=== PATIENT | female | born 1965 | race Caucasian/White ===

== ENCOUNTER 2020-12-02 06:08 | Emergency (ER) | payer MEDICAID, SELFPAY ==
[2020-12-02 06:16] VITALS: BP 144/84; PULSE 89; RESP 18; TEMP 36.7; O2SAT 97; BMI 22.6
--- NOTE | 2020-12-02 06:35 | US_ITS ---
WS: [id number] INDICATION: Right medial thigh abscess TECHNIQUE: Ultrasound soft tissue FINDINGS: Ultrasound soft tissue area of concern. Subcutaneous edema with heterogeneous soft tissue e emily. No well-defined drainable abscess or fluid collection. Focal area of induration corresponding t o spider bite measures 2.4 x 1.1 x 0.8 cm. US/US soft tissue/extremity [id number] IMPRESSION: No drainable abscess or fluid collection.
[2020-12-02 06:38] VITALS: BP 123/78; PULSE 89; RESP 17; O2SAT 94
--- NOTE | 2020-12-02 06:41 | ED_ITS ---
HPI - Skin/Abscess/Foreign Bdy General: Chief complaint: Skin/Abscess/Foreign Body Stated complaint: spider bite, sob, nausea, muscle aches Time Seen by Provider: 12/02/20 06:09 History of Present Illness: HPI narrative: 55-year-old female presents emergency room with complaint of a swollen abscess on the right medial proximal thigh. It started 4 to 5 days ago and progressively worsened. As she is not tried to manipulate it or drainage at all. It is reddened and inflamed and swollen. She is generally not been feeling well. MD complaint: abscess/boil Onset (ago): day(s) Tetanus up to date: unsure Location: RLE Severity: moderate Quality: burning and aching Pain Consistency: constant Relieving factors: none Exacerbating factors: none Associated symptoms: Reports arthralgias, chills, fever(s), itching, myalgias and nausea; Deny cough, rigidity, short of breath or vomiting Treatments prior to arrival: none Review of Systems Const: Reports: fever(s) and chills ENMT: Denies: throat pain, ear or mastoid pain, nasal discharge or nasal congestion Card: Denies: chest pain, edema, dyspnea on exertion or orthopnea Resp: Denies: dyspnea, productive cough or non-productive cough GI: Reports: nausea; Denies: vomiting : Denies: flank pain, difficulty voiding, dysuria, urinary frequency or urinary urgency Skin/Breast: Denies: rash or pruritus [facility] ED PFSH: Medical History No pertinent past medical history Surgical History H/O tubal ligation History of appendectomy Social History Smoking and tobacco status: current every day smoker cigarettes Packs smoked per day: 1 Alcohol intake: current Alcohol intake frequency: few times a week Physical Exam Const: COMMON NORMALS: no acute distress GENERAL APPEARANCE: cooperative and comfortable ORIENTATION/CONSCIOUSNESS: Yes awake, Yes oriented to person, Yes oriented to place and Yes oriented to time HENMT: COMMON NORMALS: normocephalic, atraumatic and hearing grossly normal bilaterally HEAD & SCALP: normocephalic and atraumatic Neck/C-Spine: COMMON NORMALS: no JVD Resp: COMMON NORMALS: normal respiratory effort, No retractions, No use of accessory muscles and clear to auscultation bilaterally AUSCULTATION: clear to auscultation bilaterally Cardio: COMMON NORMALS: no JVD, regular rate, regular rhythm and No murmurs present (Cardio) RATE: regular rate RHYTHM: regular rhythm GI: COMMON NORMALS: Soft to palpation and No hepatosplenomegaly present AUSCULTATION: Yes normoactive bowel sounds PALPATION: Yes Soft to palpation, No Tenderness to palpation present (GI), No Guarding due to palpation present (GI) and Yes No hepatosplenomegaly present Extremity: NARRATIVE EXTREMITY EXAM: Indurated swollen area right medial thigh. Indurated and extremely tender to the touch was a focal darkened area with a small ulcerated area with an eschar base. Is only 2 to 3 mm induration. There is no purulent drainage. Neuro: SENSORIUM/ORIENTATION: Yes oriented to person, Yes oriented to place and Yes oriented to time Skin: COMMON NORMALS: no rashes or lesions noted GENERAL SKIN EXAM: no rashes or lesions noted Course Vital Signs: Vital signs: Vital Signs Temperature 98.1 F 12/02/20 06:16 Pulse Rate 87 12/02/20 06:51 Respiratory Rate 22 H 12/02/20 06:53 Blood Pressure 123/78 12/02/20 06:51 Pulse Oximetry 98 12/02/20 06:53 MDM - Skin/Abscess/Foreign Bdy MDM Narrative: Medical decision making narrative: No identifiable abscess on ultrasound it looks like she may be forming 1 and some scattered pockets of what looks like debris. Organ to go ahead and start her on antibiotics and have her follow-up with general surgery tomorrow I suspect that she may develop an abs cess that requires drainage at some point. Discussed this with her at this point if we attempt to incise and drain may not effectively do so and might require more than 1 procedure. It would be better to observe and if it does form a significant abscess then incised and drained. Start antibiotics gave pain medications. Lab Data: Labs: Lab Results 12/02/20 12/02/20 Range/Units 06:48 06:48 WBC 12.5 H (4.0-10.0) 10^3/ uL RBC 4.50 (4.1-5.3) 10^6/u L Hgb 15.1 (11.5-15.3) g/dL Hct 42.0 (37.0-47.0) % MCV 93.3 (81-99) fL MCH 33.6 (28.0-34.0) pg MCHC 36.0 (30.0-36.0) g/dL RDW 12.7 (12.1-15.1) % Plt Count 209 (130-400) 10^3/c mm MPV 11.0 H (7.4-10.4) fL Neut % (Auto) 84.3 % Lymph % (Auto) 8.7 % [place] % (Auto) 5.9 % Eos % (Auto) 0.1 % Baso % (Auto) 0.6 % Neut # (Auto) 10.51 H (1.8-7.7) 10^3/u L Lymph # (Auto) 1.1 (0.8-4.8) 10^3/u L [place] # (Auto) 0.7 (0.2-0.9) 10^3/u L Eos # (Auto) 0.0 (0.0-0.8) 10^3/u L Baso # (Auto) 0.1 (0.0-0.1) 10^3/u L Nucleated RBC % (a uto) 0 % Nucleated RBCs # 0.0 /100WBC Sodium (136-145) mmol/L Discharge Plan Discharge Patient Disposition: Home Clinical Impression: Abscess of skin or subcutaneous tissue Condition: Stable Prescriptions: New hydrocodone-acetaminophen 5-325 mg tablet 1 tab PO Q6H PRN (Reason: pain) Qty: 15 RF: 0 Bactrim DS 800-160 mg tablet 1 tab PO BID 7 Days Qty: 14 RF: 0 Discharge Orders: Discharge ED (Routine); Ordered 12/02/20 Ordered By: Ahsan Santillan Referrals: Yady Farmer DO [Primary Care Provider] - Discharge Diet: Usual diet Discharge Activity: Resume usual activity Patient Instructions: Opioid Safety Activity Restrictions/Additional Instructions: Case management will call to make an appointment with you with the surgeon. Coding Level of Care Code ED Anodizer for Janeeg Fwd Exam Detailed
[2020-12-02 06:51] VITALS: BP 123/78; PULSE 87; RESP 23; O2SAT 98
[2020-12-02 06:53] VITALS: RESP 22; O2SAT 98
[2020-12-02] MEDS: morphine 4 mg/mL SDV 1 mL IVP (06:53)
[2020-12-02] MEDS: ondansetron 2 mg/ML SDV 2 mL 4 MG IVP (06:54)
[2020-12-02] MEDS: tetanus-dipt-pertussis 0.5 mL SDV IM (06:54)
[2020-12-02 07:01] LABS: Basophils # 0.1 10^3/uL (0.0-0.1); Basophils % 0.6 %; Eosinophils % 0.1 %; Hemoglobin 15.1 g/dL (11.5-15.3); Lymphocytes # 1.1 10^3/uL (0.8-4.8); Lymphocytes % 8.7 %; Mean Corpuscular Hemoglobin 33.6 pg (28.0-34.0); Mean Corpuscular Volume 93.3 fL (81-99); Monocytes # 0.7 10^3/uL (0.2-0.9); Monocytes % 5.9 %; Neutrophils # 10.51 10^3/uL (1.8-7.7); Neutrophils % 84.3 %; Nucleated Red Blood Cells % 0 %; Platelet Count 209 10^3/cmm (130-400); Red Cell Distribution Width 12.7 % (12.1-15.1); White Blood Count 12.5 10^3/uL (4.0-10.0)
[2020-12-02 07:48] VITALS: BP 122/77; PULSE 89; RESP 18; O2SAT 98
[2020-12-02 07:48] LABS: Blood Urea Nitrogen 5 mg/dL (6-20); Calcium 9.2 mg/dL (8.5-10.5); Carbon Dioxide 21 mmol/L (22-29); Chloride 88 mmol/L (98-107); Creatinine Clr Calc Pharmacy 156.5819; Glucose 401 mg/dL (65-115); Osmolality Calculated 274 mOsm/kg (285-295)
--- NOTE | 2020-12-02 10:23 | DCPLANNER ---
bakery and deli sales manager was asked to schedule a follow up appointment for patient with general surgery. bakery and deli sales manager email patients information to both Lacey and Antonia. Patients information will be printed and reviewed. Clinic will call patient with appointment information.
--- NOTE | 2020-12-03 07:25 | DCPLANNER ---
Patient has a follow up appointment scheduled for Thursday, December 03, 2020 at 11:[address] Marvin at [facility] General Surgery. Clinic will call patient with appointment information.
--- NOTE | 2020-12-16 16:05 | DCPLANNER ---
Patient had a follow up appointment scheduled for 12.03.[address] Marvin, with general surgery - patient did attend appointment.
== END 2020-12-02 07:51 | disposition home or self-care (01) ==
PROVIDERS: Emergency Provider Family Medicine; PCP Family Medicine
DX: L02.415 Cutaneous abscess of right lower limb (principal); F17.210 Nicotine dependence, cigarettes, uncomplicated; Z23 Encounter for immunization
CPT/HCPCS: 36415; 76882; 80048; 85025; 87040; 90471; 90715; 96374; 96375; 99283; J2270; J2405

== ENCOUNTER 2020-12-03 15:17 | Inpatient (IN) | payer MEDICAID, SELFPAY ==
--- NOTE | 2020-12-03 15:43 | CTR_ITS ---
PROCEDURE INFORMATION: Exam: CT Right Lower Extremity Without Contrast; Thigh Exam date and time: 12/03/2020 4:09 PM Age: 55 years old Clinical indication: Right thigh pain and swelling. TECHNIQUE: Imaging protocol: CT of the Right lower extremity without contrast was performed. Exam focused on the thigh. Radiation optimization: All CT scans at this facility use at least one of these dose optimization techniques: automated exposure control; mA and/or kV adjustment per patient size (includes targeted exams where dose is matched to clinical indication); or iterative reconstruction. COMPARISON: US soft tissue/extremity [id number] 12/02/2020 7:24 AM RADIATION DOSE METRICS: Total DLP (mGy-cm): 1123.13 FINDINGS: There are foci of approximately 50% narrowing involving the common femoral and proximal femoral arteries. There are foci of near occlusion involving the mid and distal femoral artery. There is a phlegmon or collection within the medial subcutaneous tissues of the right thigh that measures 2.5 x 5.1 x 4.9 cm. There is possible involvement of the underlying adductor daryn muscle. There is extensive subcutaneous edema involving the right thigh suspicious for cellulitis. There is muscular and fascial edema involving the adductor musculature likely reflecting myositis. No soft tissue gas is seen to suggest necrotizing fasciitis. A right inguinal lymph node measures 1.0 x 1.5 cm. The uterus appears enlarged and bulky; this is incompletely visualized. Recommend nonemergent pelvic ultrasound to better characterize. There are exostoses extending from the anterior and posterior aspects of the intertrochanteric right femur. No fracture, dislocation or subluxation. CT/CT lower leg RT w con [id number] IMPRESSION: 1. There is a phlegmon or abscess within the medial subcutaneous tissues of the right thigh. There is possible involvement of the underlying adductor daryn muscle. It is unclear whether this is a drainable collection. Consider targeted ultrasound to assess for drainable collection. 2. There is muscular and fascial edema involving the adductor musculature likely reflecting myositis. No soft tissue gas is seen to suggest necrotizing fasciitis. 3. There is extensive subcutaneous edema involving the right thigh suspicious for cellulitis. 4. Right inguinal lymphadenopathy. 5. The uterus appears enlarged and bulky; this is incompletely visualized. Recommend nonemergent pelvic ultrasound to better characterize. 6. Exostoses extending from the anterior and posterior aspects of the intertrochanteric right femur. Radiation Dose CTDIVOL = (mGy): DLP = 1123.13 (mGy-cm)
[2020-12-03 16:00] VITALS: BP 120/63; PULSE 81; RESP 17; TEMP 37.3; O2SAT 95
[2020-12-03 16:16] VITALS: RESP 18
[2020-12-03] MEDS: famotidine 20 mg/2 mL INJ IVP (16:16)
[2020-12-03] MEDS: morphine 4 mg/mL SDV 1 mL 2 MG IVP (16:16)
[2020-12-03] MEDS: sodium chlor 0.9% + KCl 20 mEq 20 MEQ/1,000 ML BAG 100 MEQ IV (16:18)
[2020-12-03] MEDS: iohexol 300 mg/mL 100 mL Btl IV (16:45)
[2020-12-03] MEDS: vancomycin 1,000 MG in sodium chloride 0.9% 250 ML 250 MG IV (17:16)
[2020-12-03] MEDS: enoxaparin 40 mg/0.4 mL Syringe SUBCUT (17:59)
[2020-12-03] MEDS: sodium chloride 0.9% 1,000 ML 125 ML IV (18:00)
[2020-12-03 18:40] LABS: Basophils # 0.1 10^3/uL (0.0-0.1); Basophils % 0.4 %; Eosinophils % 0.2 %; Hematocrit 36.1 % (37.0-47.0); Hemoglobin 12.4 g/dL (11.5-15.3); Lymphocytes # 1.3 10^3/uL (0.8-4.8); Lymphocytes % 10.3 %; Mean Corpuscular HGB Conc 34.3 g/dL (30.0-36.0); Mean Corpuscular Volume 93.3 fL (81-99); Monocytes # 0.8 10^3/uL (0.2-0.9); Neutrophils # 10.56 10^3/uL (1.8-7.7); Neutrophils % 82.4 %; Nucleated Red Blood Cells % 0 %; Platelet Count 214 10^3/cmm (130-400); Red Blood Count 3.87 10^6/uL (4.1-5.3); Red Cell Distribution Width 12.5 % (12.1-15.1); White Blood Count 12.8 10^3/uL (4.0-10.0)
[2020-12-03 19:03] LABS: Lactate (Lactic Acid level) 1.5 mmol/L (0.5-2.2)
[2020-12-03 19:08] LABS: Alanine Aminotransferase 7 U/L (0-33); Albumin Level 2.9 g/dL (3.5-5.2); Alkaline Phosphatase 114 IU/L (35-105); Aspartate Amino Transferase 5 U/L (0-32); Blood Urea Nitrogen 6 mg/dL (6-20); Calcium 8.9 mg/dL (8.5-10.5); Carbon Dioxide 23 mmol/L (22-29); Chloride 89 mmol/L (98-107); Globulin 3.9 g/dL (1.3-4.6); Glomerular Filtration Rate 129.1 mL/min (90-130); Osmolality Calculated 278 mOsm/kg (285-295); Sodium 124 mmol/L (136-145); Total Bilirubin 0.5 mg/dL (0.15-1.2); Total Protein 6.8 g/dL (6.6-8.7)
[2020-12-03 19:18] LABS: Anion Gap 15.9 (5-19); Glucose 502 mg/dL (65-115)
[2020-12-03 19:19] LABS: Potassium 3.9 mmol/L (3.5-5.1)
[2020-12-03 20:00] VITALS: BP 115/67; PULSE 90; RESP 17; TEMP 37.6; O2SAT 92
[2020-12-03 20:47] LABS: Glucose Point of Care 404 mg/dL (70-110)
[2020-12-03] MEDS: HYDROcodone-acetaminophen 5-325 mg Tablet 1 TAB PO (20:55)
--- NOTE | 2020-12-03 21:26 | PM.CONSULT ---
Providers/Reason For Consult Consulting Physican/Specialty*: General surgery Reason for Consult*: Elevated blood sugar Attending Physician: Luis Marvin MD Primary Care Provider: Yady Farmer DO History of Present Illness History of Present Illness Mercy Howard is a 55 year old female with no significant past medical history, current smoker, who presents [facility] due to a right inner thigh cellulitis. Hospitalist team was consulted as patient's blood sugar was found to be in the 500s, no known history of diabetes. Patient does tell me that she has been urinating and more thirsty recently. She does not know that she has a history of diabetes, she is never been tested. No history of CAD, history of CHF, history of COPD, no history of kidney disease, she does have an extensive family history of diabetes in her mom and her brother. 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 Review of Systems Const: Denies: fever(s), chills, fatigue or malaise Eyes: Denies: change in vision or blurry vision ENMT: Denies: nasal congestion Resp: Denies: dyspnea, productive cough, non-productive cough or wheezing GI: Denies: abdominal pain, nausea, vomiting, hematemesis, diarrhea, constipation, hematochezia or melena : Denies: flank pain, dysuria or urinary frequency Musc: Denies: neck pain or back pain Skin/Breast: Reports: rash Neuro: Denies: headache(s), dizziness or vertigo Endo: Reports: polyuria and polydipsia Meds/Allergies Home Medications and Allergies Home Medications Medication Instructions Recorded Confirmed Last Taken Type hydrocodone-acetaminophen 1 tab PO Q6H PRN #15 tab 12/02/20 12/03/20 12/03/20 06:00 Rx sulfamethoxazole-trimethoprim 1 tab PO BID 7 Days #14 tab 12/02/20 12/03/20 12/03/20 06:00 Rx [Bactrim DS] Allergies Allergy/AdvReac Type Severity Reaction Status Date / Time No Known Allergies Allergy Verified 12/03/20 13:15 Current Medications Current Medications Generic Name Dose Route Start Last Admin Trade Name Freq PRN Reason Stop Dose Admin Hydrocodone Bitart/Acetaminophen 1 tab 12/03/20 15:43 12/03/20 20:55 Hydrocodone-Acetaminophen 5-325 Mg Tablet PO 1 tab Q4H PRN Administration MODERATE TO SEVERE PAIN Enoxaparin Sodium 40 mg 12/03/20 17:45 12/03/20 17:59 Enoxaparin 40 Mg/0.4 Ml Syringe SUBCUT 40 mg Q24H DUONG Administration Famotidine 20 mg 12/03/20 15:45 12/03/20 16:16 Famotidine 20 Mg/2 Ml Inj IVP 20 mg Q12H DUONG Administration Vancomycin HCl 1,000 mg/ 250 mls @ 250 mls/hr 12/03/20 17:00 12/03/20 20:47 Sodium Chloride IV Infused Q12H DUONG Infusion Protocol Sodium Chloride 1,000 mls @ 125 mls/hr 12/03/20 17:45 12/03/20 18:00 Sodium Chloride 0.9% IV 125 mls/hr .Q8H DUONG Administration Morphine Sulfate 2 mg 12/03/20 15:43 12/03/20 16:16 Morphine 4 Mg/Ml Sdv 1 Ml IVP 2 mg Q2H PRN Administration SEVERE PAIN PFSH Acute PFSH: Medical History No pertinent past medical history Surgical History H/O tubal ligation History of appendectomy Family History (Updated 12/03/20 @ 21:28 by Vitaliy Pérez MD) Mother Diabetes Stroke Brother Diabetes Social History Smoking and tobacco status: current every day smoker cigarettes Packs smoked per day: 1 Alcohol intake: current Alcohol intake frequency: few times a week Vitals/I&O/Wt Last Vital Signs Temp 99.6 F 12/03/20 20:00 Pulse 90 12/03/20 20:00 Resp 17 12/03/20 20:00 BP 115/67 12/03/20 20:00 Pulse Ox 92 12/03/20 20:00 12/03/20 12/03/20 12/03/20 06:59 14:59 22:59 Intake Total 891.667 / 891.667 Balance 891.667 / 891.667 Weight last 48 hrs Weight 66.82 kg Physical Exam Const: COMMON NORMALS: no acute distress and patient oriented x3 GENERAL APPEARANCE: cooperative and comfortable HENMT: COMMON NORMALS: normocephalic HEAD & SCALP: normocephalic Eye: COMMON NORMALS: Equal, round and reactive pupils present and EOMs intact bilaterally GENERAL EYE: appearance normal, both eyes and all related structures PUPIL: Yes Equal, round and reactive pupils present Neck/C-Spine: COMMON NORMALS: full ROM, no lymphadenopathy, no JVD and Thyroid normal THYROID: Thyroid normal Lymph: LYMPHATIC: no lymphadenopathy noted Resp: COMMON NORMALS: normal respiratory effort, No retractions, No use of accessory muscles and clear to auscultation bilaterally AUSCULTATION: clear to auscultation bilaterally Cardio: COMMON NORMALS: no JVD, regular rate, regular rhythm, S1 normal heart sound present, S2 normal heart sound present, No gallops present (Cardio), No clicks present (Cardio) and No murmurs present (Cardio) RATE: regular rate RHYTHM: regular rhythm HEART SOUNDS: S1 normal heart sound present and S2 normal heart sound present GI: COMMON NORMALS: Normal to inspection, nondistended, normoactive bowel sounds present, Soft to palpation, non-tender and No hepatosplenomegaly present PALPATION: Yes Soft to palpation and Yes No hepatosplenomegaly present Extremity: COMMON NORMALS: normal to inspection, full ROM and no pedal edema Neuro: COMMON NORMALS: patient oriented x3, CN's II-XII intact bilaterally, moves all extremities and no focal motor deficits Psych: COMMON NORMALS: mental status grossly normal, Normal thought process present and cooperative THOUGHT PROCESS: Normal thought process present Skin: NARRATIVE SKIN EXAM: Right inner thigh, 6 x 7 7 cm round, raised, erythematous, tender area of cellulitis, A&P Assessment and plan (1) Abscess of skin or subcutaneous tissue: CT scan shows phlegmon or abscess within the medial subcutaneous tissue of the right thigh, possible involvement of the underlying abductor daryn muscle, muscular and fascial edema involving the abductor musculature reflecting myositis, extensive subcutaneous edema involving the right thigh suspicious for cellulitis, right inguinal lymphadenopathy Concerns for cellulitis, with underlying abscess of right thigh Currently on vancomycin N.p.o. midnight Possible surgical intervention tomorrow morning by Dr. Dial Status: Acute (2) Elevated blood sugar: Avoiding on an hemoglobin A1c, blood sugar is greater than 500, with pseudohyponatremia. Likely has type 2 diabetes mellitus Start moderate dose sliding scale, Lantus 5 units at bedtime Diabetic education Status: Acute (3) Hyponatremia: Status: Acute (4) Enlarged uterus: CAT scan did show uterus enlarged and bulky, possibly fibroid, however will need a follow-up with ATMOSPHERIC DRIER TENDER for pelvic ultrasound Status: Acute Coding Level of Care Code Acute Blender Snuff for Chg Fwd Diagnoses Abscess of skin or subcutaneous tissue L02.91 Elevated blood sugar R73.9 Hyponatremia E87.1 Enlarged uterus N85.2
[2020-12-03 21:57] LABS: Glucose Point of Care 447 mg/dL (70-110)
[2020-12-03] MEDS: insulin glargine 100 units/1 mL 5 UNIT SUBCUT (22:00)
[2020-12-03 22:19] LABS: Estmated Average Glucose 358; Hemoglobin A1C 14.1 % (4.0-6.0)
[2020-12-04] VITALS (11 sets, daily range): BP systolic 98–129; BP diastolic 55–76; PULSE 68–82; RESP 17–18; TEMP 36.8–37.7; O2SAT 91–96
[2020-12-04 00:36] LABS: Glucose Point of Care 237 mg/dL (70-110)
[2020-12-04] MEDS: sodium chloride 0.9% 1,000 ML 125 ML IV ×3 (01:19→21:14)
[2020-12-04 02:43] LABS: Glucose Point of Care 198 mg/dL (70-110)
[2020-12-04] MEDS: famotidine 20 mg/2 mL INJ IVP ×2 (04:01→14:46)
[2020-12-04] MEDS: vancomycin 1,000 MG in sodium chloride 0.9% 250 ML 250 MG IV ×2 (04:01→21:12)
[2020-12-04] MEDS: morphine 4 mg/mL SDV 1 mL 2 MG IVP ×3 (04:10→22:53)
--- NOTE | 2020-12-04 06:20 | P.PN_ITS ---
Subjective Subjective: Interval history: Patient overall seems to feel better, incidental finding of hyperglycemia on CMP yesterday and hospitalist was consulted to manage medically apparently the patient gives history now about her brothers and mom have diabetes mellitus and being on insulin. As she did not see any primary care provider for the past 10 years. 1400 mL of urine output Medications: Reviewed: Yes Vitals/I&O/Wt Last Vital Signs Temp 99.8 F H 12/04/20 04:00 Pulse 82 12/04/20 04:00 Resp 18 12/04/20 04:10 BP 112/64 12/04/20 04:00 Pulse Ox 96 12/04/20 04:10 12/03/20 12/03/20 12/04/20 14:59 22:59 06:59 Intake Total 891.667 / 713.945 8563.583 / 2056.250 Output Total 700 / 700 700 / 1400 Balance 191.667 / 191.667 464.583 / 656.250 Weight last 48 hrs Weight 147 lb 5 oz Physical Exam Narrative: EXAM NARRATIVE: Patient is conscious alert oriented X3 BMI 24 Head and neck examination PERRLA no masses no cervical lymphadenopathy no jaundice Abdomen nontender nondistended soft no organomegaly guarding or rigidity/no signs of peritonitis Extremities no cyanosis no clubbing no edema Right thigh examination was done in the presence of female client account specialist Evelyn nursing staff Cellulitis is less and the swelling is confined to the center, less surrounding induration is appreciated clinically. Right thigh compartments are soft and no signs of compartment syndrome No signs of right lower extremity ischemia patient moving all extremities Data : 12/03/20 18:10 12/03/20 18:10 A&P Assessment and plan (1) Abscess of skin or subcutaneous tissue: We will continue n.p.o. status for now for evaluation through the day for potential I&D Continue broad-spectrum IV antibiotics Management of incidental finding of hyperglycemia per hospitalist service which I do appreciate the input Strict I's and O's Pharmacologic DVT prophylaxis Assurance and education All questions have been answered and all concerns have been addressed to patient's satisfaction. Status: Acute Attestations Medical Necessity Statement*: Continue patient hospitalization for medical with particular focus on management of hyperglycemia and and continuity of parenteral antimicrobial therapy. Surgical care the form of potential I&D Time Spent in Patient Care: 16 - 35 minutes (>than 50% of time spent in counselling and/or direct pt care on unit) . Coding Level of Care Code Acute Assembler Rubber Footwear for Chg Fwd Diagnoses Abscess of skin or subcutaneous tissue L02.91
[2020-12-04 06:40] LABS: Glucose Point of Care 302 mg/dL (70-110)
--- NOTE | 2020-12-04 09:20 | PC.NURSE ---
Educated patient on alternating injection sites for insulin administration and administration sites.
[2020-12-04] MEDS: clindamycin 150 mg Capsule 300 MG PO ×3 (09:30→21:16)
--- NOTE | 2020-12-04 09:39 | PM.PN ---
Subjective Subjective: Interval history: Interval history: Patient was seen and examined this morning, patient is complaining excruciating pain around her medial side of her right thigh, she has not noticed any purulent drainage however there is an open wound with small amount of clotted blood around the periphery of the wound Patient did not spike any temperature overnight, she is nonseptic her leukocytosis is 12 without any fever tachycardia tachypnea lactic acid is 1.5 I have added clindamycin and Zosyn Vitals/I&O/Wt Last Vital Signs Temp 99.8 F H 12/04/20 07:19 Pulse 79 12/04/20 07:19 Resp 17 12/04/20 07:19 BP 100/60 12/04/20 07:19 Pulse Ox 93 12/04/20 07:19 12/03/20 12/04/20 12/04/20 22:59 06:59 14:59 Intake Total 891.667 / 851.318 1831.583 / 2056.250 Output Total 700 / 700 700 / 1400 Balance 191.667 / 191.667 464.583 / 656.250 Weight last 48 hrs Weight 66.82 kg Physical Exam Narrative: EXAM NARRATIVE: Middle-aged female who is laying in her bed went into the room Does not look septic however complaining of screw shooting pain of right medial side of her thigh Erythematous raised tender area medial side of thigh, nonpurulent cellulitis 6x7 cm with an opening on superior side with small amount of clotted blood however I did not notice any purulent drainage, it has nodular consistency, tender right inguinal lymphadenopathy No crepitation noted Patient denying dysuria No chest pain acute shortness of breath abdominal pain Distressed mood because of pain EOMI, PERRLA No abdominal discomfort Data : 12/03/20 18:10 12/03/20 18:10 A&P Additional A&P Information Subcutaneous abscess No crepitation noted on clinical exam, nodular consistency nonpurulent cellulitis Considering poorly controlled type 2 diabetes I would escalate her antibiotics with clindamycin and Zosyn for toxin suppression along vancomycin Dr. Marvin to drain the abscess for source control Patient is denying any trauma, shaving the area or any recent infection around that area We will keep her n.p.o. discontinue Lovenox Keep her on normal saline because of her soft systolic blood pressure Will follow-up on culture and sensitivity of purulent drainage after the procedure Poorly controlled type 2 diabetes Pseudohyponatremia secondary to hyperglycemia hemoglobin A1c 14 We will start Lantus along moderate sliding scale Diabetes education N.p.o. can start consistent carb diet after the procedure DVT prophylaxis currently on hold can resume after the procedure Full code Attestations Medical Necessity Statement*: As per general surgery Time Spent in Patient Care: 30mins Coding Level of Care Code Acute Ambulatory Services Representative for Jeffrey Weaver
--- NOTE | 2020-12-04 10:26 | DCPLANNER ---
Per Rounding, likely d/c 12/05. Pt will be transitioned to p.o. meds.
[2020-12-04 10:45] LABS: Glucose Point of Care 208 mg/dL (70-110)
--- NOTE | 2020-12-04 10:53 | PC.CHAP ---
Pastoral Care Encounter/Spiritual Assessment Type of Contact [] Declined lead database administrator visit [] Patient/Family/Request visit [] Outpatient visit [] Follow-up visit [] Physician referral [] Code/Alert [x] Routine visit [] Staff referral [] Actively dying [] Patient sleeping [] Family support [] [] Out of room [] Palliative care [] [x] Receiving care in room [] Pre-surgical visit [] Trauma [] Long length of stay [] ICU visit [] Other: Relational/Emotional Strength [x] Patient feels connected with others/family/visitors/staff [] Distress [] Loneliness/isolation [] Abandonment Spirituality of Patient [] Person of Lucia [] Attends Zoroastrian of their Lucia [] Believes in Prayer [] Reads Bible or Bahai materials [] There are Spiritual issues to be addressed Insights Analyst Interventions [] Prayer [] Active listening [] Non-anxious presence [] Spiritual/emotional support [] Crisis/trauma care [] Spiritual counseling [] Bereavement support [] Provided bereavement packet [] Provided Bible/devotional materials [] Provided toy/stuffed animal, coloring book to patient or family member [] Provided Communion [] Anointing/Center [] Salvation [] Completed spiritual assessment [] Other: Impact on Illness or Injury [] Angry [x] Fearful [] Anxious [] Often cries [] Exhaustion [] Unable to work [] Unable to attend moravian [] Unable to walk/stand [] Unable to read [] Unable to drive [] Unable to eat/drink [] Unable to sleep [] Unable to be with family [] Patient intubated [] Other: Summary in pain not sure what needs to be done, waiting on docotors report, may need surgery, caro a good attitude Time spent with patient 10 mins
[2020-12-04] MEDS: piperacillin-tazobactam 3.375 GM in sodium chloride 0.9% (plus) 50 ML IV ×2 (13:19→22:55)
[2020-12-04] MEDS: HYDROcodone-acetaminophen 5-325 mg Tablet 1 TAB PO ×2 (14:41→21:35)
[2020-12-04] MEDS: ondansetron 2 mg/ML SDV 2 mL 4 MG IVP (14:46)
[2020-12-04 16:46] LABS: Glucose Point of Care 268 mg/dL (70-110)
[2020-12-04 17:11] LABS: Vancomycin Trough < 4.0 ug/mL (10-15)
[2020-12-04] MEDS: enoxaparin 40 mg/0.4 mL Syringe SUBCUT (17:30)
[2020-12-04 21:04] LABS: Glucose Point of Care 246 mg/dL (70-110)
[2020-12-04] MEDS: insulin glargine 100 units/1 mL 5 UNIT SUBCUT (21:17)
[2020-12-05] VITALS (18 sets, daily range): BP systolic 104–152; BP diastolic 60–87; PULSE 61–80; RESP 14–22; TEMP 36.6–37.3; O2SAT 90–96
[2020-12-05 02:35] LABS: Basophils # 0.1 10^3/uL (0.0-0.1); Basophils % 0.6 %; Eosinophils # 0.1 10^3/uL (0.0-0.8); Eosinophils % 1.1 %; Hematocrit 32.8 % (37.0-47.0); Hemoglobin 10.8 g/dL (11.5-15.3); Lymphocytes # 1.4 10^3/uL (0.8-4.8); Lymphocytes % 13.9 %; Mean Corpuscular HGB Conc 32.9 g/dL (30.0-36.0); Mean Corpuscular Hemoglobin 32.1 pg (28.0-34.0); Mean Corpuscular Volume 97.6 fL (81-99); Monocytes # 0.7 10^3/uL (0.2-0.9); Neutrophils # 7.65 10^3/uL (1.8-7.7); Neutrophils % 76.8 %; Nucleated Red Blood Cells % 0 %; Platelet Count 194 10^3/cmm (130-400); Red Blood Count 3.36 10^6/uL (4.1-5.3); Red Cell Distribution Width 12.9 % (12.1-15.1)
[2020-12-05 02:52] LABS: Anion Gap 12.5 (5-19); Blood Urea Nitrogen 9 mg/dL (6-20); Calcium 8.5 mg/dL (8.5-10.5); Carbon Dioxide 24 mmol/L (22-29); Chloride 97 mmol/L (98-107); Glucose 246 mg/dL (65-115); Osmolality Calculated 277 mOsm/kg (285-295); Potassium 3.5 mmol/L (3.5-5.1); Sodium 130 mmol/L (136-145)
[2020-12-05] MEDS: famotidine 20 mg/2 mL INJ IVP ×2 (04:05→16:19)
[2020-12-05] MEDS: vancomycin 1,000 MG in sodium chloride 0.9% 250 ML 250 MG IV ×3 (04:05→21:42)
[2020-12-05] MEDS: sodium chloride 0.9% 1,000 ML 125 ML IV (05:14)
--- NOTE | 2020-12-05 06:15 | PC.NURSE ---
Patient off floor to OR at this time with chart. Patient necklace placed in black bag at bedside.
--- NOTE | 2020-12-05 06:42 | P.PN_ITS ---
Subjective Subjective: Interval history: Overall patient is about the same, mild drainage is appreciated at the site of the abscess. Vitals/I&O/Wt Last Vital Signs Temp 99.0 F 12/05/20 04:00 Pulse 68 12/05/20 04:00 Resp 17 12/05/20 04:00 BP 118/69 12/05/20 04:00 Pulse Ox 95 12/05/20 04:00 12/04/20 12/04/20 12/05/20 14:59 22:59 06:59 Intake Total 1140 / 1140 1429.583 / 2569.583 290 / 2859.583 Output Total 400 / 400 0 / 400 800 / 1200 Balance 740 / 740 1429.583 / 2169.583 -510 / 1659.583 Weight last 48 hrs Weight 147 lb 5 oz Physical Exam Narrative: EXAM NARRATIVE: Patient is conscious alert oriented X3 BMI 24 Head and neck examination PERRLA no masses no cervical lymphadenopathy no jaundice Right thigh examination was done in the presence of female register repairer nursing staff Meredith Cellulitis is less and the swelling is confined to the center, less surrounding induration is appreciated clinically. Right thigh compartments are soft and no signs of compartment syndrome No signs of right lower extremity ischemia patient moving all extremities Data : 12/05/20 02:28 12/05/20 02:28 A&P Assessment and plan (1) Abscess of skin or subcutaneous tissue: We will plan to take the patient today for incision and drainage of right thigh abscess. Informed consent per chart Assurance and education All questions have been answered and all concerns have been addressed to patient's satisfaction. Status: Acute Attestations Medical Necessity Statement*: Continue inpatient hospitalization for perioperative care of right thigh abscess including but not limited to parenteral antimicrobial therapy and medical management of diabetes per hospitalist service. Time Spent in Patient Care: (>than 50% of time spent in counselling and/or direct pt care on unit) . Coding Level of Care Code Acute Composite Technician for Jeffrey Weaver Diagnoses Abscess of skin or subcutaneous tissue L02.91
--- NOTE | 2020-12-05 06:44 | P.ANESASSM_ITS ---
Pre-Anesthetic Assessment Pre-Anesthetic Assessment: Height/Weight: Height 1.68 m Weight 66.82 kg Temp Pulse Resp BP Pulse Ox 99.0 F 68 17 118/69 95 12/05/20 04:00 12/05/20 04:00 12/05/20 04:00 12/05/20 04:00 12/05/20 04:00 Preop Diagnosis: Right thigh abscess Proposed Procedure: Operation Date: 12/05/20 07:00 Proposed Procedures p Incision And Drainage Right Thigh(Right) - Luis Marvin MD Was Beta Ray taken within 24 hours: N/A Last intake: Intake Last Liquid Date 12/05/20 Last Liquid Time 23:59 Last Solid Date 12/04/20 Last Solid Time 17:30 Social: Social History: Tobacco and No alcohol Exam: Pre-Anes Outpt Exam: alert, oriented x 3 and regular rate & rhythm Airway: Submandibular: WNL Cervical ROM: WNL MP: 2 Dentition: Full Pulmonary: Pulmonary: COPD Metabolic: Metabolic: DM Anesthetic Plan: ASA status: 3 Anesthesia: General Risk of > 500 ml bl ood loss (7ml/kg in children): No Meds/Allergies Current Medications: Current Medications Generic Name Dose Route Start Last Admin Trade Name Freq PRN Reason Stop Dose Admin Hydrocodone Bitart /Acetaminophen 1 tab 12/03/20 15:43 12/04/20 21:35 Hydrocodone-Acet aminophen 5-325 Mg Tablet PO 1 tab Q4H PRN Administration MODERATE TO SEVER E PAIN Clindamycin HCl 300 mg 12/04/20 09:00 12/04/20 21:16 Clindamycin 150 Mg Capsule PO 300 mg TID DUONG Administration Protocol Enoxaparin Sodium 40 mg 12/03/20 17:45 12/04/20 17:30 Enoxaparin 40 Mg /0.4 Ml Syringe SUBCUT 40 mg Q24H DUONG Administration Famotidine 20 mg 12/03/20 15:45 12/05/20 04:05 Famotidine 20 Mg /2 Ml Inj IVP 20 mg Q12H DUONG Administration Sodium Chloride 1,000 mls @ 125 m ls/hr 12/03/20 17:45 12/04/20 21:14 Sodium Chloride 0.9% IV 125 mls/hr .Q8H DUONG Administration Piperacillin Sod/T azobactam 50 mls @ 12.5 mls /hr 12/04/20 10:00 12/05/20 02:55 Sod 3.375 gm/ So dium Chloride IV Infused Q8H DUONG Infusion Protocol Vancomycin HCl 1,0 00 mg/ 250 mls @ 250 mls /hr 12/04/20 19:00 12/05/20 04:05 Sodium Chloride IV 250 mls/hr Q8H DUONG Administration Protocol Insulin Aspart 0 unit 12/03/20 21:30 12/04/20 21:16 Insulin Aspart 1 00 Unit/1 Ml SUBCUT 8 unit WM&BEDTIME DUONG Administration Protocol Insulin Glargine 5 unit 12/03/20 21:30 12/04/20 21:17 Insulin Glargine 100 Units/1 Ml SUBCUT 5 unit BEDTIME DUONG Administration Morphine Sulfate 2 mg 12/03/20 15:43 12/04/20 22:53 Morphine 4 Mg/Ml Sdv 1 Ml IVP 2 mg Q2H PRN Administration SEVERE PAIN Ondansetron HCl 4 mg 12/03/20 15:43 12/04/20 14:46 Ondansetron 2 Mg /Ml Sdv 2 Ml IVP 4 mg Q6H PRN Administration vomiting, or N/V if npo PFSH Anesthesia PFSH: Medical History No pertinent past medical history Surgical History H/O tubal ligation History of appendectomy Family History (Updated 12/03/20 @ 21:28 by Vitaliy Pérez MD) Mother Diabetes Stroke Brother Diabetes Social History Smoking and tobacco status: current every day smoker cigarettes Packs smoked per day: 1 Alcohol intake: current Alcohol intake frequency: few times a week Data Anesthesia CBC & Chem 7: 12/05/20 02:28 12/05/20 02:28 Other Labs: Laboratory Results - last 48 hr 12/03/20 12/03/20 12/03/20 18:10 18:10 18:10 WBC 12.8 H RBC 3.87 L Hgb 12.4 Hct 36.1 L MCV 93.3 MCH 32.0 MCHC 34.3 RDW 12.5 Plt Count 214 MPV 11.0 H Neut % (Auto) 82.4 Lymph % (Auto) 10.3 Morgan % (Auto) 6.0 Eos % (Auto) 0.2 Baso % (Auto) 0.4 Neut # (Auto) 10.56 H Lymph # (Auto) 1.3 Morgan # (Auto) 0.8 Eos # (Auto) 0.0 Baso # (Auto) 0.1 Nucleated RBC % (auto) 0 Nucleated RBCs # 0.0 Sodium 124 L Potassium 3.9 Chloride 89 L Carbon Dioxide 23 Anion Gap 15.9 BUN 6 Creatinine 0.5 GFR Calculation 129.1 Glucose 502 H* POC Glucose Estimat Average Glucose Hemoglobin A1c Calculated Osmolality 278 L Lactate 1.5 Calcium 8.9 Total Bilirubin 0.5 AST 5 ALT 7 Alkaline Phosphatase 114 H Total Protein 6.8 Albumin 2.9 L Globulin 3.9 Vancomycin Trough 12/03/20 12/03/20 12/03/20 18:10 20:35 21:54 WBC RBC Hgb Hct MCV MCH MCHC RDW Plt Count MPV Neut % (Auto) Lymph % (Auto) Morgan % (Auto) Eos % (Auto) Baso % (Auto) Neut # (Auto) Lymph # (Auto) Morgan # (Auto) Eos # (Auto) Baso # (Auto) Nucleated RBC % (auto) Nucleated RBCs # Sodium Potassium Chloride Carbon Dioxide Anion Gap BUN Creatinine GFR Calculation Glucose POC Glucose 404 H 447 H Estimat Average Glucose 358 Hemoglobin A1c 14.1 H Calculated Osmolality Lactate Calcium Total Bilirubin AST ALT Alkaline Phosphatase Total Protein Albumin Globulin Vancomycin Trough 12/04/20 12/04/20 12/04/20 00:33 02:39 06:24 WBC RBC Hgb Hct MCV MCH MCHC RDW Plt Count MPV Neut % (Auto) Lymph % (Auto) Morgan % (Auto) Eos % (Auto) Baso % (Auto) Neut # (Auto) Lymph # (Auto) Morgan # (Auto) Eos # (Auto) Baso # (Auto) Nucleated RBC % (auto) Nucleated RBCs # Sodium Potassium Chloride Carbon Dioxide Anion Gap BUN Creatinine GFR Calculation Glucose POC Glucose 237 H 198 H 302 H Estimat Average Glucose Hemoglobin A1c Calculated Osmolality Lactate Calcium Total Bilirubin AST ALT Alkaline Phosphatase Total Protein Albumin Globulin Vancomycin Trough 12/04/20 12/04/20 12/04/20 10:19 16:05 16:18 WBC RBC Hgb Hct MCV MCH MCHC RDW Plt Count MPV Neut % (Auto) Lymph % (Auto) Morgan % (Auto) Eos % (Auto) Baso % (Auto) Neut # (Auto) Lymph # (Auto) Morgan # (Auto) Eos # (Auto) Baso # (Auto) Nucleated RBC % (auto) Nucleated RBCs # Sodium Potassium Chloride Carbon Dioxide Anion Gap BUN Creatinine GFR Calculation Glucose POC Glucose 208 H 268 H Estimat Average Glucose Hemoglobin A1c Calculated Osmolality Lactate Calcium Total Bilirubin AST ALT Alkaline Phosphatase Total Protein Albumin Globulin Vancomycin Trough < 4.0 L 12/04/20 12/05/20 12/05/20 20:52 02:28 02:28 WBC 10.0 RBC 3.36 L Hgb 10.8 L Hct 32.8 L MCV 97.6 MCH 32.1 MCHC 32.9 RDW 12.9 Plt Count 194 MPV 11.0 H Neut % (Auto) 76.8 Lymph % (Auto) 13.9 Morgan % (Auto) 7.0 Eos % (Auto) 1.1 Baso % (Auto) 0.6 Neut # (Auto) 7.65 Lymph # (Auto) 1.4 Morgan # (Auto) 0.7 Eos # (Auto) 0.1 Baso # (Auto) 0.1 Nucleated RBC % (auto) 0 Nucleated RBCs # 0.0 Sodium 130 L Potassium 3.5 Chloride 97 L Carbon Dioxide 24 Anion Gap 12.5 BUN 9 Creatinine 0.4 L GFR Calculation 167.0 H Glucose 246 H POC Glucose 246 H Estimat Average Glucose Hemoglobin A1c Calculated Osmolality 277 L Lactate Calcium 8.5 Total Bilirubin AST ALT Alkaline Phosphatase Total Protein Albumin Globulin Vancomycin Trough Cardiac Studies: No Data to Display
[2020-12-05] MEDS: sodium chloride 0.9% 1,000 ML 30 ML IV (06:49)
[2020-12-05] MEDS: fentaNYL 50 mcg/mL INJ 2mL IVP (06:50)
[2020-12-05] MEDS: piperacillin-tazobactam 3.375 GM in sodium chloride 0.9% (plus) 50 ML IV ×3 (07:00→22:48)
[2020-12-05] MEDS: lidocaine 2% INJ 20 mL INJECTION (07:45)
--- NOTE | 2020-12-05 07:50 | PM.OP ---
Operative Report Date of procedure: December 05, 2020 Pre-op Diagnosis: Right thigh abscess Post-op diagnosis: same Procedure Done: Incision and drainage of right thigh abscess Sharp debridement of abscess cavity all the way to the musculofascial layer OPen Biopsy of the underlying adductor daryn muscle Implants: 2 pieces of large Surgicel followed by Kerlix for packing impregnated and lidocaine 2% Specimens removed/disposition: Swabs for cultures and sensitivities Edge of the abscess for permanent pathology Tissues for cultures and sensitivities Muscle biopsy for permanent pathology Surgeon: Luis Marvin Leather Cleaner: music sound light technician Saurav Circulating nurse Rochelle 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 Time-out was done verifying the patient's name/date of /planned procedure and destination after the procedure, all were in agreement. After palpation of the right groin abscess.I did add transverse oblique incision on top of the most fluctuant area , after the stab incision was created at gush of about 30 mL were revealed, cultures were obtained for aerobes and anaerobes, incision was extended, all loculations were broken down by the examining finger, tissues were obtained for culture from different barrientos of the abscess cavity. Sharp debridement of the abscess cavity was done including indurated necrotic subcutaneous tissues. Right groin abscess: Measurements post incision and drainage 9 x 2.5 x [address] to the musculofascial layer Sharp debridement was done all the way to the muscle layer, a muscle biopsy was obtained from the underlying adductor daryn muscle No violation of the femoral neurovascular bundle Copious and thorough irrigation with warm saline was done using Pulsavac 3 L of warm saline, followed by appropriate hemostasis, 2 large pieces of Surgicel were applied to the wound bed. Followed by Kerlix impregnated and lidocaine 2% was used to pack the abscess cavity.Dry dressing was then applied. I elected to place a Barfield catheter at the end of the procedure after dressing was applied for the first few hours after surgery. Patient revealed clear urine. Patient tolerated the procedure well,count of instruments,needle and sponges were completed at the end of the procedure.And then patient was taken to the recovery area in stable condition. I Was present for the whole entire procedure
[2020-12-05 08:22] LABS: Glucose Point of Care 246 mg/dL (70-110)
--- NOTE | 2020-12-05 08:33 | SUR.OPER ---
wound measurements 9 cm x 2.5 cm x 4 cm
[2020-12-05] MEDS: ondansetron 2 mg/ML SDV 2 mL 4 MG IVP (08:57)
--- NOTE | 2020-12-05 09:17 | ANE.PACU2 ---
Inpatient post-anesthesia follow up: Airway intact: Yes Vital signs: Temperature 97.9 F Pulse Rate 72 Respiratory Rate 15 Blood Pressure 124/66 Pulse Oximetry 93 Oxygen Delivery Me thod Nasal Cannula Oxygen Flow Rate 2 Fraction of Inspir ed Oxygen Hydration adequate: Yes Nausea and vomiting: No Pain level: 2 Mental status: Baseline
[2020-12-05] MEDS: morphine 4 mg/mL SDV 1 mL 2 MG IVP ×3 (09:28→21:11)
[2020-12-05] MEDS: clindamycin 150 mg Capsule 300 MG PO (09:32)
[2020-12-05 11:47] LABS: Glucose Point of Care 273 mg/dL (70-110)
--- NOTE | 2020-12-05 13:26 | P.PN_ITS ---
Subjective Subjective: Interval history: Patient was seen and examined this morning after incision and drainage She did not complain of any active pain when I saw her, she had normal hemodynamics, currently on vancomycin and Zosyn and clindamycin will be discontinued She has stayed afebrile, blood cultures negative to date Abscess culture drawn and sent from the OR Vitals/I&O/Wt Last Vital Signs Temp 98.0 F 12/05/20 08:42 Pulse 67 12/05/20 08:42 Resp 15 12/05/20 08:42 BP 126/72 12/05/20 08:42 Pulse Ox 92 12/05/20 08:42 12/04/20 12/05/20 12/05/20 22:59 06:59 14:59 Intake Total 1429.583 / 2569.583 1540 / 4109.583 400 / 400 Output Total 0 / 400 800 / 1200 20 / 20 Balance 1429.583 / 2169.583 740 / 2909.583 380 / 380 Weight last 48 hrs Weight 66.82 kg Physical Exam Narrative: EXAM NARRATIVE: Patient was laying comfortably in her bed without any active discomfort Hemodynamically stable S1, S2 sinus rhythm No acute respite distress no audible wheezing or stridor No abdominal tenderness Her right thigh was wrapped with dressing which was not removed No lower extremity vascular compromise noted EOMI, PERRLA No neurological deficit Urinary Catheter Management^: Barfield: Cath Placed During This Visit: yes Urinary Catheter Date of Insertion: 12/05/20 Urinary Catheter Time of Insertion: 07:48 Data : 12/05/20 02:28 12/05/20 02:28 A&P Assessment and plan (1) Abscess of skin or subcutaneous tissue: Status post incision and drainage postop day 0 Continue vancomycin and Zosyn discontinue clindamycin she has stayed afebrile no signs of sepsis, blood cultures negative to date, abscess cultures sent from the OR Status: Acute (2) Elevated blood sugar: Hyperglycemia noted, will adjust her insulin regimen to Lantus 10 units along moderate sliding scale Status: Acute Additional A&P Information Diet: Consistent carbohydrate diet Full code DVT Lovenox Attestations Medical Necessity Statement*: As per general surgery Time Spent in Patient Care: 25mins Coding Level of Care Code Acute Railroad Surveyor for Jeffrey Weaver Diagnoses Abscess of skin or subcutaneous tissue L02.91 Elevated blood sugar R73.9
[2020-12-05] MEDS: polyethylene glycol 3350 Pkt 17 gm PO (14:06)
[2020-12-05] MEDS: sennosides-docusate Tablet 1 TAB PO (14:06)
[2020-12-05] MEDS: magnesium hydroxide 30 mL UDC PO (14:06)
[2020-12-05 17:20] LABS: Glucose Point of Care 212 mg/dL (70-110)
[2020-12-05] MEDS: enoxaparin 40 mg/0.4 mL Syringe SUBCUT (18:32)
[2020-12-05 19:09] LABS: Vancomycin Trough 11.5 ug/mL (10-15)
[2020-12-05 20:36] LABS: Glucose Point of Care 318 mg/dL (70-110)
[2020-12-05] MEDS: insulin glargine 100 units/1 mL 10 UNIT SUBCUT (21:43)
--- NOTE | 2020-12-05 23:53 | PC.NURSE ---
Patient's SpO2 was at 86%, place 2L NC on patient. Now at 91%.
[2020-12-06] VITALS (12 sets, daily range): BP systolic 111–168; BP diastolic 66–84; PULSE 66–84; RESP 16–24; TEMP 36.4–37.1; O2SAT 92–95
[2020-12-06] MEDS: morphine 4 mg/mL SDV 1 mL 2 MG IVP ×6 (02:11→22:28)
--- NOTE | 2020-12-06 02:21 | PC.NURSE ---
Patient has been rude all night, asking for pain meds. This nurse had explain multiple times that he had been in different situations throughout the night. Patient has now stated that she wants to speak to the charge nurse.
--- NOTE | 2020-12-06 03:02 | PC.NURSE ---
This nurse assumed care of patient at 0245 per patient request for a different nurse. Patient stated complaints of prior nurse not giving my pain meds, not checking on me hardly or my dressing and being rude . This nurse explained to patient that both times patient had asked for pain medication that nursing staff were in another room for a patient emergency and apologized for the inconvenience. Patient dressing checked by this nurse, noted to be CD&I but slightly coming loose. Dressing reinforced. Patient had been given Morphine IV recently, patient states that this is helping her pain. Patient states no further needs at this time.
[2020-12-06] MEDS: vancomycin 1,000 MG in sodium chloride 0.9% 250 ML 250 MG IV ×2 (03:59→22:17)
[2020-12-06] MEDS: famotidine 20 mg/2 mL INJ IVP ×2 (03:59→19:10)
[2020-12-06] MEDS: HYDROcodone-acetaminophen 5-325 mg Tablet 1 TAB PO (06:13)
[2020-12-06] MEDS: piperacillin-tazobactam 3.375 GM in sodium chloride 0.9% (plus) 50 ML IV (06:13)
[2020-12-06 06:39] LABS: Glucose Point of Care 192 mg/dL (70-110)
[2020-12-06 06:56] LABS: Basophils # 0.1 10^3/uL (0.0-0.1); Basophils % 1.1 %; Eosinophils # 0.1 10^3/uL (0.0-0.8); Eosinophils % 1.7 %; Hematocrit 35.9 % (37.0-47.0); Hemoglobin 10.7 g/dL (11.5-15.3); Lymphocytes # 1.7 10^3/uL (0.8-4.8); Lymphocytes % 24.5 %; Mean Corpuscular HGB Conc 29.8 g/dL (30.0-36.0); Mean Corpuscular Hemoglobin 31.6 pg (28.0-34.0); Mean Corpuscular Volume 105.9 fL (81-99); Mean Platelet Volume 10.3 fL (7.4-10.4); Monocytes # 0.5 10^3/uL (0.2-0.9); Monocytes % 6.8 %; Neutrophils # 4.54 10^3/uL (1.8-7.7); Neutrophils % 64.9 %; Nucleated Red Blood Cells % 0 %; Platelet Count 232 10^3/cmm (130-400); Red Blood Count 3.39 10^6/uL (4.1-5.3); Red Cell Distribution Width 13.2 % (12.1-15.1)
--- NOTE | 2020-12-06 07:11 | PM.PN ---
Subjective Subjective: Interval history: Patient does complain overall of right groin discomfort and it seems that pain medications is helping with pain control. Normalization of WBC count. Medications: Reviewed: Yes Vitals/I&O/Wt Last Vital Signs Temp 98.5 F 12/06/20 04:00 Pulse 69 12/06/20 04:00 Resp 18 12/06/20 04:21 BP 129/74 12/06/20 04:00 Pulse Ox 93 12/06/20 04:00 12/05/20 12/06/20 12/06/20 22:59 06:59 14:59 Intake Total 900 / 2640.5 300 / 2940.5 Output Total 900 / 920 Balance 900 / 2620.5 -600 / 2020.5 Physical Exam Narrative: EXAM NARRATIVE: Patient is conscious alert oriented X3 BMI 24 Head and neck examination PERRLA no masses no cervical lymphadenopathy no jaundice. Right thigh examination and dressing change was done in the presence of female director of program management nursing staff Lynda Cellulitis is much less ,still surrounding induration is appreciated clinically. Right thigh compartments are soft and no signs of compartment syndrome Wound cavity description packing in place that was removed by me the wound cavity shows no purulent discharge yet induration is appreciated and less cellulitic changes.2 pieces of Surgicel were removed and repacking of the wound using Kerlix wet-to-dry followed by ABDs and dry Kerlix for wrap. No signs of right lower extremity ischemia patient moving all extremities Urinary Catheter Management^: Barfield: Cath Placed During This Visit: yes, but has since been removed by the nurse Reason for Continuing Indwelling Catheter: Decision to DC Catheter Urinary Catheter Date of Insertion: 12/05/20 Urinary Catheter Time of Insertion: 07:48 Date Urinary Catheter Removed: 12/05/20 Time Urinary Catheter Discontinued: 17:00 Data : 12/06/20 06:24 12/06/20 06:24 Micro: Microbiology 12/05/20 07:55 Gram Stain - Final Thigh - Right A&P Assessment and plan (1) Abscess of skin or subcutaneous tissue: Daily packing with wet-to-dry using Kerlix soaked in normal saline followed by ABDs and Kerlix We will obtain an ultrasound venous duplex right lower extremity to rule out potential underlying DVT. Ultrasound of the right lower extremity venous duplex showed no evidence of DVT. Supplemental information. No relevant prior studies available. FINDINGS: Right deep veins: No deep venous thrombosis in the visualized right common femoral, femoral, popliteal, posterior tibial, or peroneal veins. Right superficial veins: Saphenofemoral junction is patent without thrombus. Soft tissues: Subcutaneous edema. US/[place] [id number] IMPRESSION: No deep venous thrombosis in the visualized right lower extremity. We will follow on cultures and sensitivities and continue coordination with the hospitalist service Assurance and education All questions have been answered and all concerns have been addressed to patient's satisfaction. Status: Acute Attestations Medical Necessity Statement*: Patient will require to continue inpatient hospitalization for parenteral antimicrobial therapy and better control of her diabetes. Time Spent in Patient Care: (>than 50% of time spent in counselling and/or direct pt care on unit). Coding Level of Care Code Acute Maintenance Representative for Jeffrey Weaver Diagnoses Abscess of skin or subcutaneous tissue L02.91
--- NOTE | 2020-12-06 08:00 | USR_ITS ---
PROCEDURE INFORMATION: Exam: US Duplex Right Lower Extremity Veins, Limited Exam date and time: 12/06/2020 8:08 AM Age: 55 years old Clinical indication: Swelling (edema) of limb; Lower extremity, right; Patient HX: Right thigh abscess i&d done 12-05-20; Additional info: Right lower extremity swelling TECHNIQUE: Imaging protocol: Real-time Duplex ultrasound of the Right Lower Extremity with 2-D mcgee scale, color Doppler flow and spectral waveform analysis with image documentation. Limited exam was focused on the right lower extremity veins. COMPARISON: No relevant prior studies available. FINDINGS: Right deep veins: No deep venous thrombosis in the visualized right common femoral, femoral, popliteal, posterior tibial, or peroneal veins. Right superficial veins: Saphenofemoral junction is patent without thrombus. Soft tissues: Subcutaneous edema. US/[place] [id number] IMPRESSION: No deep venous thrombosis in the visualized right lower extremity.
[2020-12-06] MEDS: sennosides-docusate Tablet 1 TAB PO (08:39)
[2020-12-06] MEDS: polyethylene glycol 3350 Pkt 17 gm PO (08:39)
[2020-12-06 08:43] LABS: Anion Gap 14.5 (5-19); Blood Urea Nitrogen 6 mg/dL (6-20); Calcium 8.4 mg/dL (8.5-10.5); Carbon Dioxide 21 mmol/L (22-29); Chloride 101 mmol/L (98-107); Glomerular Filtration Rate 232.7 mL/min (90-130); Glucose 166 mg/dL (65-115); Osmolality Calculated 277 mOsm/kg (285-295); Potassium 3.5 mmol/L (3.5-5.1); Sodium 133 mmol/L (136-145)
--- NOTE | 2020-12-06 10:07 | P.PN_ITS ---
Subjective Subjective: Interval history: Patient was seen and examined this morning no overnight events patient has stayed afebrile no leukocytosis, I also talked with Dr. Dial who is planning to reevaluate her tomorrow for reexploration because of hyperemia and cellulitis around surgical site Today rt sided venous Dopplers were done which did not show any DVT Patient was complaining of pain after examination by general surgery. She asked for Tylenol free opioids Vitals/I&O/Wt Last Vital Signs Temp 98.8 F 12/06/20 07:13 Pulse 66 12/06/20 07:13 Resp 20 H 12/06/20 08:45 BP 111/66 12/06/20 07:13 Pulse Ox 93 12/06/20 07:13 12/05/20 12/06/20 12/06/20 22:59 06:59 14:59 Intake Total 900 / 2640.5 300 / 2940.5 480 / 480 Output Total 900 / 920 Balance 900 / 2620.5 -600 / 2020.5 480 / 480 Physical Exam Narrative: EXAM NARRATIVE: Patient was laying comfortably in her bed when entered the room, Dr. Marvin was also present S1, S2 sinus rhythm No active abdominal pain No acute respite distress No neurological deficit EOMI, PERRLA Her dressing was recently changed hence was not removed on request of Dr. Mei, I have asked the nurse to take pictures of the wound as well No lower extremity vascular compromise No significant edema of lower extremity Urinary Catheter Management^: Barfield: Cath Placed During This Visit: yes, but has since been removed by the nurse Reason for Continuing Indwelling Catheter: Decision to DC Catheter Urinary Catheter Date of Insertion: 12/05/20 Urinary Catheter Time of Insertion: 07:48 Date Urinary Catheter Removed: 12/05/20 Time Urinary Catheter Discontinued: 17:00 Data : 12/06/20 06:24 12/06/20 06:24 Micro: Microbiology 12/05/20 07:55 Anaerobic Culture - Preliminary Thigh - Right 12/05/20 07:55 Gram Stain - Final Thigh - Right A&P Assessment and plan (1) Abscess of skin or subcutaneous tissue: Status: Acute (2) Elevated blood sugar: Status: Acute Additional A&P Information Abscess of subcutaneous tissue Status post incision and drainage by general surgery postop day 1 No fever or worsening leukocytosis continue vancomycin and Zosyn no bacteremia cultures from the wound sent from the OR Right lower extremity Doppler did not reveal DVT Dr. Marvin would like to evaluate her tomorrow for reexploration because of mild cellulitis around the edges of the wound, We will de-escalate antibiotics according to culture and sensitivity results Oxycodone for opioids along bowel regimen Type 2 diabetes poorly controlled Increase her Lantus to 10 units along moderate sliding scale today her blood sugar is within normal range Continue current regimen Full code DVT prophylaxis: Lovenox N.p.o. after Currently on consistent carb diet Attestations Medical Necessity Statement*: As per general surgery Time Spent in Patient Care: 30mins Coding Level of Care Code Acute Clay Pigeon Setter for Chg Fwd Diagnoses Abscess of skin or subcutaneous tissue L02.91 Elevated blood sugar R73.9
[2020-12-06 10:35] LABS: Glucose Point of Care 251 mg/dL (70-110)
[2020-12-06] MEDS: oxyCODONE 5 mg IR Tab/Cap 10 MG PO (11:28)
[2020-12-06] MEDS: magnesium citrate Btl 296 mL 150 ML PO (11:28)
[2020-12-06] MEDS: nicotine 14 mg Patch 1 PATCH TRANSDERMA (11:28)
--- NOTE | 2020-12-06 13:13 | PC.NURSE ---
pt dressing changed by dr hunter with this nurse assistance. dr hunter packed with moist kerlex applied an abd and then wrapped with kerlex as well.
--- NOTE | 2020-12-06 13:15 | PC.NURSE ---
when pt got up to use the restroom the kerlex fell down pt leg, packing was still intact, so thi snurse just reinforced with a new abd and kerlex.
[2020-12-06 16:43] LABS: Glucose Point of Care 161 mg/dL (70-110)
[2020-12-06] MEDS: oxyCODONE 5 mg IR Tab/Cap PO (17:36)
[2020-12-06] MEDS: LORazepam 0.5 mg Tablet 0.25 MG PO (17:36)
[2020-12-06] MEDS: enoxaparin 40 mg/0.4 mL Syringe SUBCUT (18:23)
--- NOTE | 2020-12-06 19:37 | PC.NURSE ---
AT APPROXIMATELY 1630 DR MENSAH ROUNDED ON PT AND WENT INTO DEPTH WITH PT ON IMPORTANCE OF IV ANTIBIOTICS.
--- NOTE | 2020-12-06 19:44 | PC.NURSE ---
SHIFT SUMMARY PT HAS HAD A PAIN LEVEL OF 6-10/10 MOST OF THE DAY MORPHINE AND OXY IR WERE GIVEN AND SEEMED TO HELP ALLEVIATE HER PAIN FOR A SHORT PERIOD OF TIME. PT IV WAS REMOVED DUE TO PAIN, REDNESS, AND IRRITATION, WHEN THIS NURSE ASKED NAHOMI LEONARD TO TRY TO START AN IV ON PT THE PT DID NOT TOLERATE IT AND THEN REFUSED TO ALLOW HER TO TRY AGAIN. THIS NURSE WENT IN AFTER APPROXIMATELY 30 MINUTES AND THIS NURSE TRIED TO GET AN IV, AFTER AN UNSUCCESSFUL ATTEMPT, PT REFUSED TO ALLOW NURSE TO TRY AGAIN. DR MENSAH WAS INFORMED AND AFTER PRE MEDICATING THE PT SHE ALLOWED FARNAZ COMER TO INSERT AN IV.
[2020-12-06] MEDS: clindamycin 150 mg Capsule 600 MG PO (20:13)
[2020-12-06 20:48] LABS: Glucose Point of Care 211 mg/dL (70-110)
[2020-12-06] MEDS: insulin glargine 100 units/1 mL 10 UNIT SUBCUT (22:17)
[2020-12-07] VITALS (15 sets, daily range): BP systolic 123–174; BP diastolic 73–84; PULSE 63–81; RESP 16–20; TEMP 36.6–37.1; O2SAT 92–96
[2020-12-07] MEDS: morphine 4 mg/mL SDV 1 mL 2 MG IVP ×7 (00:06→21:03)
[2020-12-07] MEDS: clindamycin 150 mg Capsule 600 MG PO ×2 (05:08→12:47)
[2020-12-07] MEDS: famotidine 20 mg/2 mL INJ IVP ×2 (05:09→15:27)
[2020-12-07] MEDS: ondansetron 2 mg/ML SDV 2 mL 4 MG IVP (05:37)
[2020-12-07 06:54] LABS: Glucose Point of Care 207 mg/dL (70-110)
[2020-12-07] MEDS: vancomycin 1,000 MG in sodium chloride 0.9% 250 ML 250 MG IV ×3 (06:56→21:06)
--- NOTE | 2020-12-07 07:02 | PM.PN ---
Subjective Subjective: Interval history: Patient overall seems to be improving clinically and feeling better. Continue to be on parenteral antimicrobial therapy. Adequate urine output and stable vital signs. Less anxious today. Medications: Reviewed: Yes Vitals/I&O/Wt Last Vital Signs Temp 98 F 12/07/20 04:00 Pulse 75 12/07/20 04:00 Resp 18 12/07/20 05:31 BP 169/73 12/07/20 04:00 Pulse Ox 93 12/07/20 04:00 12/06/20 12/07/20 12/07/20 21:59 06:59 14:59 Intake Total Output Total Balance Physical Exam Narrative: EXAM NARRATIVE: Patient is conscious alert oriented X3 BMI 24 Head and neck examination PERRLA no masses no cervical lymphadenopathy no jaundice. Right thigh examination and dressing change was done in the presence of female arch pad cementer nursing staff Berta and Dr. Arriola. Cellulitis is fading and much less induration Right thigh compartments are soft and no signs of compartment syndrome Urinary Catheter Management^: [place]: Cath Placed During This Visit: yes, but has since been removed by the nurse Reason for Continuing Indwelling Catheter: Decision to DC Catheter Urinary Catheter Date of Insertion: 12/05/20 Urinary Catheter Time of Insertion: 07:48 Date Urinary Catheter Removed: 12/05/20 Time Urinary Catheter Discontinued: 17:00 Data : 12/07/20 06:31 12/06/20 06:24 Micro: Microbiology 12/05/20 07:55 Gram Stain - Final Thigh - Right Tissue Culture - Preliminary Staphylococcus aureus 12/05/20 07:55 Abscess Culture - Preliminary Abscess - #1 Staphylococcus aureus 12/05/20 07:55 Anaerobic Culture - Preliminary Thigh - Right A&P Assessment and plan (1) Abscess of skin or subcutaneous tissue: 1-nutrition optimization 2-wound care in the form of Daily packing with wet-to-dry using Kerlix soaked in normal saline followed by ABDs and Kerlix 3-management of medical comorbidities per hospitalist service as well as management of antimicrobial therapy accordingly 4-encourage ambulation 5-assurance and education 6-continue pharmacologic DVT prophylaxis All questions have been answered and all concerns have been addressed to patient's satisfaction. Assurance and education All questions have been answered and all concerns have been addressed to patient's satisfaction. Status: Acute Attestations Medical Necessity Statement*: Patient will require to continue inpatient hospitalization for parenteral antimicrobial therapy and better control of her diabetes. Time Spent in Patient Care: (>than 50% of time spent in counselling and/or direct pt care on unit). Coding Level of Care Code Acute Group Account Director for Jeffrey Weaver Diagnoses Abscess of skin or subcutaneous tissue L02.91
[2020-12-07 07:50] LABS: Basophils # 0.1 10^3/uL (0.0-0.1); Basophils % 1.1 %; Eosinophils # 0.2 10^3/uL (0.0-0.8); Eosinophils % 2.2 %; Hematocrit 34.1 % (37.0-47.0); Hemoglobin 10.8 g/dL (11.5-15.3); Lymphocytes # 1.5 10^3/uL (0.8-4.8); Lymphocytes % 20.7 %; Mean Corpuscular HGB Conc 31.7 g/dL (30.0-36.0); Mean Corpuscular Hemoglobin 31.3 pg (28.0-34.0); Mean Corpuscular Volume 98.8 fL (81-99); Mean Platelet Volume 10.4 fL (7.4-10.4); Monocytes # 0.6 10^3/uL (0.2-0.9); Monocytes % 8.9 %; Neutrophils % 65.2 %; Nucleated Red Blood Cells % 0 %; Platelet Count 274 10^3/cmm (130-400); Red Blood Count 3.45 10^6/uL (4.1-5.3); Red Cell Distribution Width 12.9 % (12.1-15.1); White Blood Count 7.2 10^3/uL (4.0-10.0)
[2020-12-07] MEDS: sennosides-docusate Tablet 1 TAB PO (09:09)
[2020-12-07] MEDS: nicotine 14 mg Patch 1 PATCH TRANSDERMA (09:09)
[2020-12-07 10:49] LABS: Glucose Point of Care 144 mg/dL (70-110)
--- NOTE | 2020-12-07 12:28 | P.PN_ITS ---
Subjective Subjective: Interval history: Patient was seen and examined this morning, she was feeling better today, and is requesting to go home, has been evaluated by general surgery as well in the morning no plans of further reexploration She has stayed afebrile, abscess is growing MRSA, yesterday she had 1 missed dose of vancomycin however clindamycin was initiated in place No signs of sepsis, culture and sensitivities pending Vitals/I&O/Wt Last Vital Signs Temp 98.6 F 12/07/20 12:00 Pulse 63 12/07/20 12:00 Resp 18 12/07/20 12:00 BP 124/75 12/07/20 12:00 Pulse Ox 94 12/07/20 12:00 12/06/20 12/07/20 12/07/20 21:59 06:59 14:59 Intake Total 300 / 300 Output Total Balance 300 / 300 Physical Exam Narrative: EXAM NARRATIVE: Patient was laying comfortably in her bed without any acute discomfort No active chest pain No active abdominal pain No acute respite distress No neurological deficits Right thigh 9 x 6 x 3 wound, granulation tissue wound base no active purulent drainage, wound edges are showing improvement in cellulitis, no active bleeding noticed, wound was examined in presence of female barrel finisher and Dr. Marvin No lower extremity vascular compromise Appropriate mood, and affect Urinary Catheter Management^: [place]: Cath Placed During This Visit: yes, but has since been removed by the nurse Reason for Continuing Indwelling Catheter: Decision to DC Catheter Urinary Catheter Date of Insertion: 12/05/20 Urinary Catheter Time of Insertion: 07:48 Date Urinary Catheter Removed: 12/05/20 Time Urinary Catheter Discontinued: 17:00 Data : 12/07/20 06:31 12/06/20 06:24 Micro: Microbiology 12/05/20 07:55 Gram Stain - Final Thigh - Right Tissue Culture - Preliminary Staphylococcus aureus 12/05/20 07:55 Abscess Culture - Preliminary Abscess - #1 Staphylococcus aureus 12/05/20 07:55 Anaerobic Culture - Preliminary Thigh - Right A&P Assessment and plan (1) Abscess of skin or subcutaneous tissue: Status: Acute (2) Elevated blood sugar: Status: Acute Additional A&P Information Abscess of subcutaneous tissue of right medial thigh area Purulent cellulitis Has been getting vancomycin clindamycin was added yesterday No signs of sepsis, she has stayed afebrile Culture sensitivities pending however cultures growing MRSA I do believe she would benefit from 3 to 4 weeks of p.o. options for MRSA coverage,There is no bacteremia but considering extension of her cellulitis with myositis If PICC line is being considered I would recommend linezolid (To avoid vancomycin trough level draws) Type II suboptimal control diabetes Sugar has been 1 40-1 80s after increasing Lantus and keeping her on moderate sliding scale her hemoglobin A1c is 14 On discharge she will need Lantus Consistent carb diet Continue DVT prophylaxis with Lovenox Full code Attestations Medical Necessity Statement*: Anticipating discharge in next 24-hour Time Spent in Patient Care: 35mins Coding Level of Care Code Acute Supervisor [employer] for Jeffrey Weaver Diagnoses Abscess of skin or subcutaneous tissue L02.91 Elevated blood sugar R73.9
[2020-12-07] MEDS: oxyCODONE 5 mg IR Tab/Cap PO ×2 (12:46→19:55)
[2020-12-07] MEDS: LORazepam 0.5 mg Tablet 0.25 MG PO (15:27)
[2020-12-07 16:49] LABS: Glucose Point of Care 156 mg/dL (70-110)
[2020-12-07] MEDS: enoxaparin 40 mg/0.4 mL Syringe SUBCUT (18:22)
[2020-12-07 20:37] LABS: Glucose Point of Care 267 mg/dL (70-110)
[2020-12-07] MEDS: insulin glargine 100 units/1 mL 10 UNIT SUBCUT (21:08)
[2020-12-08] VITALS (10 sets, daily range): BP systolic 124–171; BP diastolic 71–89; PULSE 71–75; RESP 16–20; TEMP 36.5–37.4; O2SAT 91–94
[2020-12-08] MEDS: morphine 4 mg/mL SDV 1 mL 2 MG IVP ×3 (00:05→11:08)
[2020-12-08] MEDS: oxyCODONE 5 mg IR Tab/Cap PO (06:19)
[2020-12-08] MEDS: famotidine 20 mg/2 mL INJ IVP (06:20)
[2020-12-08] MEDS: vancomycin 1,000 MG in sodium chloride 0.9% 250 ML 250 MG IV (06:22)
[2020-12-08 06:56] LABS: Glucose Point of Care 188 mg/dL (70-110)
[2020-12-08] MEDS: sennosides-docusate Tablet 1 TAB PO (08:32)
[2020-12-08] MEDS: nicotine 14 mg Patch 1 PATCH TRANSDERMA (08:32)
[2020-12-08] MEDS: polyethylene glycol 3350 Pkt 17 gm PO (08:32)
[2020-12-08 10:56] LABS: Glucose Point of Care 232 mg/dL (70-110)
--- NOTE | 2020-12-08 12:37 | P.PN_ITS ---
Subjective Subjective: Interval history: Patient overall feels better. No acute vents overnight Medications: Reviewed: Yes Vitals/I&O/Wt Last Vital Signs Temp 99.1 F 12/08/20 11:23 Pulse 72 12/08/20 11:23 Resp 18 12/08/20 11:23 BP 153/78 12/08/20 11:23 Pulse Ox 92 12/08/20 11:23 12/07/20 12/08/20 12/08/20 22:59 06:59 14:59 Intake Total 470 / 1065 490 / 490 Balance 470 / 1065 490 / 490 Physical Exam Narrative: EXAM NARRATIVE: Patient is conscious alert oriented X3 BMI 24 Head and neck examination PERRLA no masses no cervical lymphadenopathy no jaundice. Right thigh examination and dressing change was done in the presence of female math and sciences department chair nursing staff Berta No evidence of cellulitis Right thigh compartments are soft and no signs of compartment syndrome Dressing was changed by me bedside in the presence of the nursing staff. Urinary Catheter Management^: [place]: Cath Placed During This Visit: yes, but has since been removed by the nurse Reason for Continuing Indwelling Catheter: Decision to DC Catheter Urinary Catheter Date of Insertion: 12/05/20 Urinary Catheter Time of Insertion: 07:48 Date Urinary Catheter Removed: 12/05/20 Time Urinary Catheter Discontinued: 17:00 Data : 12/07/20 06:31 12/06/20 06:24 Micro: Microbiology 12/05/20 07:55 Gram Stain - Final Thigh - Right Tissue Culture - Final Methicillin Resis Staph Aureus 12/05/20 07:55 Abscess Culture - Final Abscess - #1 Methicillin Resis Staph Aureus 12/05/20 07:55 Anaerobic Culture - Preliminary Thigh - Right A&P Assessment and plan (1) Abscess of skin or subcutaneous tissue: 1-nutrition optimization and patient's education 2-wound care in the form of Daily packing with wet-to-dry using Kerlix soaked in normal saline followed by ABDgeeta and Charu 3-follow-up with Dr. Farmer as outpatient 4-encourage ambulation 5-assurance and education 6-discharge patient home today 7-return to surgery office in 7 to 10 days All questions have been answered and all concerns have been addressed to patient's satisfaction. Assurance and education All questions have been answered and all concerns have been addressed to patie nt's satisfaction. Status: Acute Attestations Medical Necessity Statement*: Patient required inpatient hospitalization for parenteral antimicrobial therapy and better control of her diabetes. Patient met the appropriate criteria for safe discharge today Time Spent in Patient Care: (>than 50% of time spent in counselling and/or direct pt care on unit) . Other Attestations: Education about cessation of smoking exceeded 10 minutes Coding Level of Care Code Acute Law Instructor for Jeffrey Weaver Diagnoses Abscess of skin or subcutaneous tissue L02.91
--- NOTE | 2020-12-08 12:41 | PM.DCS ---
Discharge Providers Date of Admission: 12/03/20 15:17 Date of Discharge: December 08, 2020 Attending Provider at Admission: Luis Marvin MD Attending Provider at Discharge: Luis Marvin MD Primary Care Provider: Yady Farmer DO Diagnoses at Discharge Discharge Diagnosis (1) Abscess of skin or subcutaneous tissue: Status: Resolved Reason for Visit Reason for Visit: DRAINAGE ABSCESS Hospital Course Hospital Course Patient overall did well was hospitalized for inpatient to receive appropriate antimicrobial therapy and undergone uneventful incision and drainage of right groin abscess. Patient continued to be in the hospital for IV antibiotics as well as local dressing care. With appropriate control of recently diagnosed diabetes mellitus per hospitalist service. Continue to have stable vital signs and adequate urine output and responding well to medical management as well as daily surgical care of the wound. Patient continues to be on pharmacologic DVT prophylaxis and ultrasound of the right lower extremity was done showed no evidence of DVT. Patient was placed appropriately on antimicrobial therapy per hospitalist service based on cultures and sensitivities. Patient met the appropriate criteria for safe discharge home today with the plan to follow-up with me at the office in 1 week and follow-up with Dr. Farmer her primary care provider to continue close monitoring of diabetes management. Patient education was given to patient's son for wound care. Physical Exam Urinary Catheter Management^: [place]: Cath Placed During This Visit: yes, but has since been removed by the nurse Reason for Continuing Indwelling Catheter: Decision to DC Catheter Urinary Catheter Date of Insertion: 12/05/20 Urinary Catheter Time of Insertion: 07:48 Date Urinary Catheter Removed: 12/05/20 Time Urinary Catheter Discontinued: 17:00 Discharge Data Data Completed and Pending: Completed Studies During Hospitalization Category Date Time Status CT lower leg RT w con [id number] Stat Cat Scan 12/03/20 15:43 [place] [id number] Routin e Ultrasound 12/06/20 08:00 Completed Pending at discharge Category Date Time Status Anaerobic Culture Routine Lab 12/05/20 07:55 Results Pathology: Surgic al [PTH] Routine Pth 12/05/20 08:19 Received Labs from last 24 hours 12/08/20 12/08/20 12/07/20 10:44 06:53 20:35 POC Glucose 232 H 188 H 267 H Vancomycin Trough 12/07/20 12/07/20 16:40 12:56 POC Glucose 156 H Vancomycin Trough 13.0 Vitals: Last Vital Signs Temp 99.1 F 12/08/20 11:23 Pulse 72 12/08/20 11:23 Resp 18 12/08/20 11:23 BP 153/78 12/08/20 11:23 Pulse Ox 92 12/08/20 11:23 Discharge Plan Discharge Patient Disposition: Home Condition: Stable Prescriptions: New insulin glargine 100 unit/mL (3 mL) insulin pen 10 unit SUBCUT DAILY 30 Days Qty: 3 RF: 10 Bactrim DS 800-160 mg tablet 1 tab PO BID 21 Days Qty: 42 RF: 0 metformin 500 mg tablet 500 mg PO BID 30 Days Qty: 60 RF: 5 Senna Laxative 8.6 mg tablet 8.6 mg PO DAILY 30 Days Qty: 30 RF: 0 (DME) lancets-blood glucose strips 30 gauge combo pack See Rx Instructions .ROUTE .MEDSUPPLY Qty: 200 RF: 0 (DME) Accu-Chek Guide Glucose Meter Misc See Rx Instructions .ROUTE .MEDSUPPLY Qty: 1 RF: 0 Novolog Flexpen U-100 Insulin 100 unit/mL (3 mL) insulin pen See Rx Instructions .ROUTE .COMPLEX MDD 14 Qty: 3 RF: 3 Mayo 5-325 mg tablet 1 tab PO Q6H PRN (Reason: pain) Qty: 28 RF: 0 Discontinued hydrocodone-acetaminophen 5-325 mg tablet 1 tab PO Q6H PRN (Reason: pain) Qty: 15 RF: 0 sulfamethoxazole-trimethoprim [Bactrim DS] 800-160 mg tablet 1 tab PO BID 7 Days Qty: 14 RF: 0 Discharge Orders: Discharge Order (Routine); Ordered 12/08/20 Ordered By: Katherine Arriola Referrals: Luis Marvin MD [Physician] - (Return to surgery office in 7 to 10 days) Yady Farmer DO [Primary Care Provider] - 12/19/20 10:15 am (First available appointment) Discharge Diet: Advance as tolerated and Diabetic Discharge Activity: Increase activity as tolerated Patient Instructions: Diabetes Mellitus Type 2 in Adults (DC), Diabetic Foot Ulcers (DC) Activity Restrictions/Additional Instructions: Insulin sliding scale Blood sugar level: 140 to 180 mg/dL take 2 units of insulin subcutaneous 181 to 220 4 units 221 - 2 60 6 units 261-300,, 8 units 301-3 50,, 10 units 3 51-400,, 12 units Greater than 400,, 14 units Surgical education for the patient 1. Patient can shower after 48 hours from surgery with dressing in place and then remove dressing after shower. 2. Remove packing daily and repacked with wet-to-dry Kerlix using normal saline followed by ABDs 3. Up and walking as tolerated 4. Do lift heavily 5. Do not operate heavy machinery or drive while using pain medications. 6.Contact the office or return to the ER for worsening nausea vomiting fevers or chills, or noticing any redness around incision sites or discharge. 7. Avoid constipation 8. Cessation of smoking Discharge Attestations Time Spent in Discharge Care*: greater than 30 min Specific Discharge Activities: educating patient and educating and/or supporting family/caregiver Time Spent in Smoking Cessation: more than 10 minutes Status at Discharge: Cognitive status at discharge: cognitively intact, Behavioral status at discharge: cooperative, Functional status at discharge: independent ambulation Overall status at discharge: patient is progressing back to baseline Quality Metrics Clinical Quality Measures During this hospital stay, did patient experience: None Coding Level of Care Code Acute [facility] SINAI HANSEN note Diagnoses Abscess of skin or subcutaneous tissue L02.91
== END 2020-12-08 13:45 | disposition home or self-care (01) | DRG 580 ==
PROVIDERS: Family Medicine; Internal Medicine; Admitting Provider Surgery; PCP Family Medicine; Visit Provider Surgery
PROC: 0KBQ0ZX Excision of Right Upper Leg Muscle, Open Approach, Diagnostic (ICD-10-PCS; principal; 2020-12-05 07:00)
DX: L02.415 Cutaneous abscess of right lower limb (principal); E87.1 Hypo-osmolality and hyponatremia; L03.115 Cellulitis of right lower limb; F17.210 Nicotine dependence, cigarettes, uncomplicated; Z83.3 Family history of diabetes mellitus; R59.0 Localized enlarged lymph nodes; E11.65 Type 2 diabetes mellitus with hyperglycemia; N85.2 Hypertrophy of uterus; B95.62 Methicillin resistant Staphylococcus aureus infection as the cause of diseases classified elsewhere
CPT/HCPCS: 36415; 36416; 73701; 80048; 80053; 80202; 82962; 83036; 83605; 85025; 87070; 87075; 87077; 87176; 87186; 87205; 88300; 88304; 93971; 96372; 96374; J0131; J1650; J1815 ×2; J2270; J2405; J2543; J2704; J2710; J3010; J3370; J3490; J7030; J7050; Q9967

== ENCOUNTER 2020-12-23 12:18 | Outpatient (CLI) | payer MEDICAID, SELFPAY ==
--- NOTE | 2020-12-23 12:22 | USCV_ITS ---
Melizanoah Higuerabeau [facility] Age: 55 Gender: F : 1965 Exam Date: 12/23/2020 12:07 Ordering Phys: Yady Farmer DO Technologist: Dominga Alvarez [place]am [place] [facility] [place]: BLE PAIN RIGHT LEFT Brachial 134.00 mmHg Brachial 140.00 mmHg Pressure (mmHg) Waveform Pressure (mmHg) Waveform 59.00 High Thigh 66.00 87.00 Below Knee 72.00 62.00 WAX MACHINE OPERATOR 83.00 DPA 54.00 0.59 Ankle/Brachial Index 0.39 47.00 Pre-Exercise Toe Pressure 32.00 Pre-Exercise Toe/Brachial Index 0.23 0.34 FINDINGS LEFT WAX MACHINE OPERATOR NOT SEEN Right resting KATHY 0.59 and the left resting KATHY was 0.39 Right resting TBI is 0.34 and the left resting TBI 0.23 CONCLUSIONS Abnormal resting KATHY and TBI on the left side, consistent with severe obstructive peripheral arterial disease. Abnormal resting KATHY TBI on the right side, consistent with moderate obstructive peripheral artery disease The above features may suggest aortoiliac disease Consider CTA or peripheral angiogram, to further evaluate the peripheral arteries Dr Dmitriy Moreland MD [facility] (Electronically Signed) Final Date: 23 December 2020 18:34 S
== END 2020-12-23 12:19 | disposition home or self-care (01) ==
LOC: US 12:19
PROVIDERS: PCP Family Medicine; Visit Provider Family Medicine
DX: M79.604 Pain in right leg (principal); M79.605 Pain in left leg
CPT/HCPCS: 93923

== ENCOUNTER 2020-12-30 08:23 | Outpatient (CLI) | payer MEDICAID, SELFPAY ==
--- NOTE | 2020-12-30 08:30 | CT_ITS ---
WS: [id number] CT ANGIOGRAPHY LOWER EXTREMITIES WITH RUNOFF TO THE ANKLES HISTORY: PAD TECHNIQUE: Arterial injection is performed during imaging to evaluate the aorta and runoff vessels to the ankles. MIP and volume rendering imaging has also been performed. All images are reviewed. All C T scans at [facility] use at least one of these dose optimization techniques: automated ex posure control; mA and/or kV adjustment per patient size (includes targeted exams where dose is match ed to clinical indication); or iterative reconstruction. Contrast: Omnipaque 350; 95 mL IV. DLP: 1259.69 mGycm COMPARISON: Segmental pressures 12/23/2020 Atherosclerotic plaque and intimal thickening in the distal aorta to the bifurcation. RIGHT lower extremity: Multifocal areas of intimal thickening and plaque are mild throughout the RIGH T common, internal and external iliac arteries. Multifocal areas of plaque with reconstitution and st enoses at multiple levels in the SFA. Distal to the popliteal artery there is three-vessel runoff. Po sterior tibial artery appears completely occluded mid to distal lower extremity. Multifocal stenoses RIGHT SFA ranging from 65-75%. LEFT lower extremity: Mild intimal thickening calcified plaque throughout the common, internal and ex ternal iliac arteries. Multifocal areas of significant stenosis throughout the SFA and popliteal teodora ry. Distal to the popliteal artery there is three-vessel runoff. The posterior tibial arteries. Small caliber and appears completely occluded in the mid lower extremity. Multifocal stenosis LEFT SFA/popliteal artery ranging from 38-82%. Markedly enlarged uterus. Uterus measures at least 13 x 12 cm. Poor definition of the endometrium. No free fluid or adenopathy. Small shoddy retroperitoneal lymph nodes. CT/CT angio [facility] [id number] IMPRESSION: 1. Multifocal RIGHT SFA stenoses ranging from 65-75%. 2. Multifocal LEFT SFA/popliteal artery stenoses ranging from 38-82%. 3. Occluded versus very small caliber bilateral posterior tibial arteries. Not identifiable distal to the mid lower extremity. 4. Markedly enlarged uterus. Recommend transabdominal and transvaginal pelvic ultrasound imaging.
[2020-12-30] MEDS: iohexol 350 mg/mL 100 mL Btl IV (09:18)
== END 2020-12-30 08:24 | disposition home or self-care (01) ==
LOC: RADWPI 08:25
PROVIDERS: PCP Family Medicine; Visit Provider Family Medicine
DX: I73.9 Peripheral vascular disease, unspecified (principal); N85.2 Hypertrophy of uterus; I70.8 Atherosclerosis of other arteries
CPT/HCPCS: 73706; Q9967

== ENCOUNTER 2021-01-26 07:16 | Outpatient (CLI) | payer MEDICAID, SELFPAY ==
--- NOTE | 2021-01-26 07:15 | US_ITS ---
WS: [id number] ULTRASOUND PELVIS TECHNIQUE: Transabdominal and transvaginal. ULTRASOUND PELVIS TECHNIQUE: Transabdominal. CLINICAL INFORMATION: ENLARGED UTERUS ON CT : No. COMPARISON: None. FINDINGS: Heterogeneous enlarged uterus Orientation: Anteverted. Size: 12.8 cm x 11.0 cm x 8.2 cm. Masses: Fibroid uterus Endometrium not well visualized Adnexa: Right ovary not visualized Left ovary size: 2.8 cm x 1.9 cm x 1.6 cm. Left ovary volume: 4.2 ccm3 Free fluid: None. Other findings: None. US/US pelvic with transvaginal IMPRESSION: 1. Large heterogeneous fibroid uterus difficult to entirely visualize due to s ize. 2. Endometrium not well visualized 3. Right ovary not visualized. Normal left ovary where visualized.
== END 2021-01-26 07:17 | disposition home or self-care (01) ==
PROVIDERS: PCP Family Medicine; Visit Provider Family Medicine
DX: N85.2 Hypertrophy of uterus (principal); D25.9 Leiomyoma of uterus, unspecified
CPT/HCPCS: 76830; 76856

== ENCOUNTER → 2021-01-30 10:00 | Outpatient (BNVA) | payer MEDICAID, SELFPAY | PROVIDERS: PCP Family Medicine; Visit Provider Family Medicine | DX: E11.9 Type 2 diabetes mellitus without complications (principal); D25.9 Leiomyoma of uterus, unspecified; Z13.6 Encounter for screening for cardiovascular disorders; L65.9 Nonscarring hair loss, unspecified; Z79.4 Long term (current) use of insulin | CPT/HCPCS: 80053; 80061; 84443; 87635 ==

== ENCOUNTER 2021-02-04 08:58 | Day surgery (SDC) | payer MEDICAID, SELFPAY ==
[2021-02-04] VITALS (29 sets, daily range): BP systolic 102–140; BP diastolic 57–83; PULSE 68–90; RESP 13–24; TEMP 36.6; O2SAT 92–100; BMI 23.6
--- NOTE | 2021-02-04 09:00 | XACV_ITS ---
Wt: 66 kg BSA: 1.76 m2 Gender: Female : 1965 Exam Type: Invasive Peripheral Vascular Procedure(s): Procedure Description: Peripheral Cath Diagnostic Procedure Procedure Description: Abdominal aortic angiography Procedure Description: Peripheral vascular Intervention Procedure Description: PV Balloon Exam Priority: Routine Lower Extremity Interventional Findings Using right common femoral approach after somewhat difficulty we were able to cross the left SFA lesion. Multiple balloon angioplasty from distal to proximal SFA and popliteal vessel was performed. Excellent angiographic result with good flow noted in the left SFA tibioperoneal trunk with two-vessel runoff below the knee up to the foot. Conclusions Indication for peripheral angiogram: Lifestyle limiting claudication of both legs more on the left than the right, abnormal CTA with runoffAbdominal aortogram revealed luminal irregularity of the abdominal aorta without aneurysm. Bilateral renal arteries showed showed renal luminal irregularity without significant stenosis.Bilateral common iliac arteries has luminal irregularity. Bilateral external/internal iliac artery has luminal irregularity. Bilateral common femoral arteries had luminal irregularity.Bilateral profundofemoral arteries has luminal irregularity. Left superficial femoral artery is chronically occluded in the proximal segment all the way to the distal. Left popliteal artery is chronically occluded. Barely minimal blood flow was noted into vessel below the left knee. Extensive collaterals noted in the distal SFA and mid SFA region. Right superficial femoral artery has mid and distal severe stenosis with two-vessel runoff below the knee. Both tibioperoneal trunk appear to be patent. null was treated with Balloon. Recommendations Continue current medical management and risk factor modification. Follow up with PCP as directed. Access Site Site: Right Femoral artery Sheath Size: 6 Fr Hemost... Method: Suture Hemost... Success: Successful Site: Right Femoral artery Sheath Size: 6 Fr Hemost... Success: Unsuccessful Procedure Details Findings Procedure Consent Obtained. Admit Source: Out Patient. Pre-Procedure Time Out. Identified patient by full name and date of as verbalized by the patient/guarantor. Does the consent match the physician's order: Yes. Accurate & Complete Informed Consent: Yes. Inpatient/Outpatient History & Physical on Chart: Yes. If H&P is completed, is and addenduem needed: Yes; If yes, is the addendum complete: N/A. Visualize and Verify Site with Patient/Guarantor: N/A. Relevant Radiology Images available: N/A. Pre-op teaching completed and patient verbalized understanding. The risks, benefits, and alternatives of sedation and/or procedure were discussed by physician. The patient agrees to continue. Procedure started. Correct patient, site and procedure confirmed by cath team. IV Site on Arrival: 22 gauge in the left forearm. Pre Procedural Pulses: bilateral dorsalis pedis was Doppled. Pre Procedural Pulses: bilateral posterior tibial was Doppled. Pre Procedural Pulses: bilateral radial was 3+. Oxygen started at 2liters/min via nasal canula. bilateral groins was prepped with chloroprep then draped in the usual sterile fashion. Physician notified. Baseline sample Acquired. HR: 74 BPM. Physician arrived. Physician scrubbed in. Immediate Pre-Procedure Time Out. Correct Patient: Yes; Correct Procedure: Yes; Correct Site: Yes; Correct Patient Position: Yes; Correct Supplies: Yes; Dried Flammable Prep: Yes; Blood Products Available: N/A;. Lidocaine 1% infiltrated to the right groin. Arterial access obtained with micropuncture set. A 5FrFr UF catheter in over wire. Abdominal aortogram performed in AP @ 10 mL/sec for a total of 30 mL. glidewire inserted. Catheter out. Shoot through sheath Left leg runoff 10ml/sec for a total of 30mL. Left leg runoff 10ml/sec for a total of 30mL. Left leg runoff 10ml/sec for a total of 30mL. wire down to the SFA. seeker inserted. seeker out. wire in anterior tibial. Sheath KVO. Inflation number : 1 A AB [place] 35 SWITCHBOARD OPERATOR Catheter [id number] was prepped and advanced across the Left SFA , then inflated to 4 KAMRON for 2:06 seconds. Inflation number: 2 The AB [place] 35 SWITCHBOARD OPERATOR Catheter [id number] was reinflated across the Left SFA, to 8 KAMRON for 2:01 seconds. Balloon out. results checked. wire out. Sheath exchanged for a short sheath. Right Leg Runoff performed 10mL/sec for a total of 30mL. Sheath(s) sutured into position with 2-0 silk and sterile 4x4's and Op-site applied over the site. No oozing or signs and symptoms of hematoma noted. Post Procedure: Pulses reassessed and unchanged. PERRLA. Strong, equal hand medical technical writer bilaterally. No VTE prophylaxis required. Medication's Wasted: Lidocaine 1% = 4 mL. Medication's Wasted: Heparin = 2000 units. Medication's Wasted: Nitro = 49.6 mg. Total IV fluids: 75 mL. Contrast type used: Visipaque 320 mgI/mL, 500 mL bottle. Contrast Material : Visipaque 183 ml. A Suture was successful obtaining hemostatsis at the Right Femoral artery insertion site. Complications: none. Estimated blood loss: 5mL-10mL. Procedure completed. Post-op diagnosis: severe PAD/CLI, chronically occluded SFA and popliteal. Post SWITCHBOARD OPERATOR SFA and popliteal with good result. Patient transferred by bed to 1st floor. Vital chart was stopped. Procedure Medications Start: 10:31 AM Stop: 10:31 AM Medication: Versed Amount: 1 mg Route: I.V. Start: 10:32 AM Stop: 10:32 AM Medication: Fentanyl Amount: 50 mcg Route: I.V. Start: 10:37 AM Stop: 10:37 AM Medication: Versed Amount: 1 mg Route: I.V. Start: 10:42 AM Stop: 10:42 AM Medication: Fentanyl Amount: 25 mcg Route: I.V. Start: 11:10 AM Stop: 11:10 AM Medication: Heparin Amount: 6000 units Route: I.V. Start: 11:14 AM Stop: 11:14 AM Medication: Fentanyl Amount: 25 mcg Route: I.V. Start: 11:19 AM Stop: 11:19 AM Medication: Nitrogylcerin Amount: 400 mcg Route: I.A. Start: 11:28 AM Stop: 11:28 AM Medication: Heparin Amount: 1000 units Route: I.V. Start: 11:28 AM Stop: 11:28 AM Medication: Plavix Amount: 300 mg Route: P.O. I, the attending physician, have reviewed and verified all procedure medications. Yes, all medications given per verbal order History/Risk Factors Tobacco Use: Current/Recent(w/in 1 year) Report Signatures Finalized by Katherine Londono MD on 02/14/2021 10:45 PM
[2021-02-04] MEDS: diphenhydrAMINE 50 mg Capsule PO (09:35)
[2021-02-04 10:04] LABS: Basophils # 0.1 10^3/uL (0.0-0.1); Basophils % 1.1 %; Eosinophils # 0.2 10^3/uL (0.0-0.8); Hematocrit 45.4 % (37.0-47.0); Hemoglobin 14.9 g/dL (11.5-15.3); Lymphocytes # 2.7 10^3/uL (0.8-4.8); Lymphocytes % 33.4 %; Mean Corpuscular HGB Conc 32.8 g/dL (30.0-36.0); Mean Corpuscular Hemoglobin 30.8 pg (28.0-34.0); Mean Platelet Volume 9.8 fL (7.4-10.4); Monocytes # 0.5 10^3/uL (0.2-0.9); Monocytes % 6.1 %; Neutrophils % 56.3 %; Nucleated Red Blood Cells % 0 %; Platelet Count 391 10^3/cmm (130-400); Red Blood Count 4.83 10^6/uL (4.1-5.3); Red Cell Distribution Width 13.2 % (12.1-15.1)
--- NOTE | 2021-02-04 10:10 | W.PM.OPSUD ---
Surgery/Procedure H&P Update DATE OF PROCEDURE: February 04, 2021 DATE H&P PERFORMED: 01/12/21 H&P UPDATE INFORMATION: I have reviewed H&P completed within last 30 days and I have examined patient prior to procedure PREOP DIAGNOSIS: Severe peripheral vascular disease lifestyle limiting claudication, celluli PLANNED PROCEDURE: Operation Date: 02/04/21 10:00 Proposed Procedures p Peripheral Diagnostic 05718 I73.9(Not Applicable) - Katherine Londono MD PATIENT REASSESSED PRIOR TO SEDATION, WITH NO CHANGE NOTED: Yes PHYSICAL EXAM: alert, oriented x 3 and clear to auscultation bilaterally AIRWAY EVAL/ANESTHESIA PLAN: ASA II, Risks, benefits & alternatives of sedation and/or procedure discussed and Patient agrees to continue as planned ADDITIONAL INFORMATION: Patient has been explained in detail all risk benefit and alternative for the procedure. Patient has been explained the risk for major minor bleed stroke urgent emergent surgery. Patient has been explained FDA warning regarding drug-coated balloons that it increased mortality in certain subgroup. She would like to proceed with it.
[2021-02-04] MEDS: aspirin 81 mg EC Tablet PO (12:47)
[2021-02-04] MEDS: HYDROcodone-acetaminophen 5-325 mg Tablet 1 TAB PO ×2 (12:47→19:03)
--- NOTE | 2021-02-04 14:49 | PC.NURSE ---
Upon initial assessment patient was asked to list all belongings that were brought to hospital with her. 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 Gave patient education on fire safety and policies regarding cigarettes/lighters. Offered to keep those belongings up at nursing station and patient refused. Patient stated that No one is touching my fucking stuff personal and if anyone wants to throw a fucking fit about it I'll just go home- I want out of here anyway. Last time I was here for 6 days and no one took my cigarettes.I'll just have my son take them home when he gets here after he gets out of school.
[2021-02-04] MEDS: gabapentin 300 mg Capsule PO ×2 (15:26→20:28)
[2021-02-04 15:38] LABS: Partial Thromboplastin Time 28.5 SECONDS (23.9-36.7)
[2021-02-04 16:19] LABS: Glucose Point of Care 121 mg/dL (70-110)
[2021-02-04] MEDS: cilostazol 100 mg Tablet 50 MG PO (17:48)
[2021-02-04] MEDS: ALPRAZolam 0.25 mg Tablet PO (22:31)
[2021-02-05 04:33] LABS: Basophils # 0.1 10^3/uL (0.0-0.1); Basophils % 1.1 %; Eosinophils # 0.3 10^3/uL (0.0-0.8); Eosinophils % 3.7 %; Hematocrit 42.2 % (37.0-47.0); Hemoglobin 14.5 g/dL (11.5-15.3); Lymphocytes # 2.4 10^3/uL (0.8-4.8); Lymphocytes % 25.9 %; Mean Corpuscular HGB Conc 34.4 g/dL (30.0-36.0); Mean Corpuscular Hemoglobin 32.7 pg (28.0-34.0); Mean Platelet Volume 9.7 fL (7.4-10.4); Monocytes # 0.5 10^3/uL (0.2-0.9); Monocytes % 5.8 %; Neutrophils # 5.84 10^3/uL (1.8-7.7); Neutrophils % 63.2 %; Nucleated Red Blood Cells % 0 %; Platelet Count 373 10^3/cmm (130-400); Red Blood Count 4.44 10^6/uL (4.1-5.3); Red Cell Distribution Width 13.2 % (12.1-15.1); White Blood Count 9.2 10^3/uL (4.0-10.0)
[2021-02-05 04:41] VITALS: BP 127/77; PULSE 70; RESP 15; TEMP 36.6; O2SAT 96
[2021-02-05 04:55] LABS: Blood Urea Nitrogen 17 mg/dL (6-20); Calcium 8.3 mg/dL (8.5-10.5); Carbon Dioxide 24 mmol/L (22-29); Chloride 101 mmol/L (98-107); Glomerular Filtration Rate 232.7 mL/min (90-130); Glucose 174 mg/dL (65-115); Osmolality Calculated 288 mOsm/kg (285-295); Sodium 136 mmol/L (136-145)
[2021-02-05 05:45] VITALS: PULSE 70
[2021-02-05 07:03] LABS: Glucose Point of Care 141 mg/dL (70-110)
[2021-02-05] MEDS: lisinopril 2.5 mg Tablet PO (08:00)
[2021-02-05] MEDS: cilostazol 100 mg Tablet 50 MG PO (08:00)
[2021-02-05] MEDS: gabapentin 300 mg Capsule PO (08:02)
[2021-02-05] MEDS: atorvastatin 40 mg Tablet 20 MG PO (08:02)
[2021-02-05] MEDS: aspirin 81 mg EC Tablet PO (08:04)
[2021-02-05 08:18] VITALS: BP 154/70; PULSE 80; RESP 18; TEMP 36.6; O2SAT 99
[2021-02-05] MEDS: HYDROcodone-acetaminophen 5-325 mg Tablet 1 TAB PO (08:22)
--- NOTE | 2021-02-05 08:53 | PM.SDS ---
Short Stay Summary Providers Date of Admit/Discharge: 02/12/21 Attending Provider: Katherine Londono MD Primary Care Provider: Yady Farmer DO Chief Complaint: pvd HPI History of Present Illness Mercy Howard is a 55 year old female who was referred for bilateral leg pain. Patient had recent KATHY and CTA showing peripheral artery disease. Patient has a history of diabetes and is a current everyday smoker.Peripheral angiogram was performed as she was having severe lifestyle limiting claudication. Review of Systems Const: Reports: change in weight (Up 4 lbs.); Denies: fever(s) Eyes: Denies: blurry vision ENMT: Denies: throat pain Card: Denies: chest pain or edema Resp: Denies: dyspnea GI: Denies: nausea, vomiting or diarrhea : Reports: pelvic pain Musc: Reports: extremity pain; Denies: neck pain Skin/Breast: Denies: rash, new lesions or lesions Neuro: Reports: numbness in extremities; Denies: headache(s) Endo: Reports: polydipsia; Denies: polyuria Home Meds/Allergies Home Medications and Allergies Home Medications Medication Instructions Recorded Confirmed Type insulin aspart U-100 100 unit/mL See Rx Instructions .ROUTE 12/19/20 02/03/21 History (3 mL) subcutaneous pen .COMPLEX ml insulin glargine 100 unit/mL (3 12 unit SUBCUT DAILY ml 01/30/21 02/03/21 History mL) subcutaneous pen Allergies Allergy/AdvReac Type Severity Reaction Status Date / Time No Known Allergies Allergy Verified 01/30/21 09:14 PFSH Acute PFSH: Medical History Abscess of right groin Claudication of both lower extremities Enlarged uterus Hidradenitis suppurativa History of MRSA infection Hyponatremia No pertinent past medical history Type 2 diabetes mellitus without complication, with long-term current use of insulin Surgical History H/O tubal ligation History of appendectomy Family History Mother Diabetes Stroke Brother Diabetes Social History (Reviewed 02/12/21 @ 12:58 by Alvin Schuster Smoking and tobacco status: current every day smoker cigarettes Packs smoked per day: 1 Alcohol intake: current Alcohol intake frequency: other Vitals/I&O/Wt Last Vital Signs Temp 97.8 F 02/05/21 08:18 Pulse 80 02/05/21 08:18 Resp 18 02/05/21 08:18 BP 154/70 02/05/21 08:18 Pulse Ox 99 02/05/21 08:18 02/04/21 02/05/21 02/05/21 22:59 06:59 14:59 Intake Total 600 / 600 120 / 720 360 / 360 Output Total 900 / 900 Balance -300 / -300 120 / -180 360 / 360 Weight last 48 hrs Weight 146 lb Physical Exam Narrative: EXAM NARRATIVE: GENERAL: Patient is alert, awake and oriented x3. [] NECK: No jugular vein distension. [] HEENT: No cyanosis. No icterus. No pallor. [] HEART: Regular S1 and S2. No murmur, rub or gallop. [] LUNGS: Clear to auscultate bilaterally. [] ABDOMEN: Soft, nontender and nondistended. Positive bowel sounds. No guarding, rebound or tenderness. [] CENTRAL NERVOUS SYSTEM: Grossly nonfocal. [] EXTREMITIES: Lower extremities with 1+ edema bilaterally. Pulses palpable in the lower extremities, both dorsalis pedis and posterior tibial. [] Hospital Course Admission Diagnoses Severe life style limiting claudication Hospital Course Mercy Howard is a 55 year old female who was referred for bilateral leg pain. Patient had recent KATHY and CTA showing peripheral artery disease. Patient has a history of diabetes and is a current everyday smoker.Peripheral angiogram was performed as she was having severe lifestyle limiting claudication. She had a totally occluded left SFA that underwent successful revascularization with balloon angioplasty. She feels well. Pulses are strong. Has still got some soreness in the leg but ambulating without any problems. She will be discharged on aspirin and plavix and follow up with Dr Londono in the office. She also has right SFA disease that will be adressed later. SSS Data Data Completed and Pending: Pending at discharge Category Date Time Status CRUISE COUNSELOR request for service Routin e Exams 02/04/21 09:00 Taken Discharge Plan Discharge Patient Disposition: Home Condition: Stable Prescriptions: New Plavix 75 mg tablet 75 mg PO DAILY Qty: 30 RF: 1 Continued aspirin [Adult Low Dose Aspirin] 81 mg tablet,delayed release (DR/EC) 81 mg PO DAILY Qty: 90 RF: 3 lisinopril 2.5 mg tablet 2.5 mg PO DAILY Qty: 90 RF: 3 insulin glargine 100 unit/mL (3 mL) insulin pen 12 unit SUBCUT DAILY RF: 0 gabapentin 300 mg capsule 300 mg PO TID Qty: 90 RF: 0 simvastatin 20 mg tablet 20 mg PO DAILY Qty: 90 RF: 3 Novolog Flexpen U-100 Insulin 100 unit/mL (3 mL) insulin pen See Rx Instructions .ROUTE .COMPLEX RF: 0 (DME) lancets-blood glucose strips 30 gauge combo pack See Rx Instructions .ROUTE .MEDSUPPLY Qty: 200 RF: 0 cilostazol 50 mg tablet 50 mg PO BID Qty: 180 RF: 3 (DME) blood-glucose meter [Accu-Chek Guide Glucose Meter] Misc See Rx Instructions .ROUTE .MEDSUPPLY Qty: 1 RF: 0 Held metformin 500 mg tablet 500 mg PO BID 30 Days Qty: 60 RF: 5 Hold Instructions: Resume on 02/07/21. Discharge Orders: Discharge Order (Routine); Ordered 02/05/21 Ordered By: Randy Izaguirre Referrals: Katherine Londono MD [Physician] - 03/16/21 2:45 pm (You have a cardiology followup with Dr. Londono at [facility] on March 16 ay 2:45pm) Nikki Ferrari FNP [Nurse Practitioner] - 02/16/21 3:45 pm (You have a post procedure followup with ELICIA Escobar at [facility] on February 16 at 3:45pm) Discharge Diet: Diabetic Patient Instructions: Clopidogrel (By mouth), Peripheral Vascular Angioplasty (DC), Post Angiogram Home Care Instructions Activity Restrictions/Additional Instructions: Please do not lift more than 5 pounds of weight over the next 5 days Attestations Medical Necessity Statement*: Care not expected to cross 2 midnights. Time Spent in Patient Care*: greater than 30 min Status at Discharge: Cognitive status at discharge: cognitively intact, Behavioral status at discharge: cooperative, Quality Metrics Clinical Quality Measures: During this hospital stay, did patient experience: None Coding Level of Care Code Acute Him Assistant for Jeffrey Weavre
[2021-02-05 09:41] VITALS: BP 154/70; PULSE 80; RESP 18; TEMP 36.6; O2SAT 99
[2021-02-05] MEDS: clopidogrel 75 mg Tablet PO (10:02)
== END 2021-02-05 10:06 | disposition home or self-care (01) ==
LOC: CCL 09:06 → ICU 11:17 → CSU 02-05 09:01
PROVIDERS: PCP Family Medicine; Visit Provider Internal Medicine Cardiovascular Disease
DX: I70.213 Atherosclerosis of native arteries of extremities with intermittent claudication, bilateral legs (principal); E11.9 Type 2 diabetes mellitus without complications; Z79.4 Long term (current) use of insulin; F17.210 Nicotine dependence, cigarettes, uncomplicated; Z86.14 Personal history of Methicillin resistant Staphylococcus aureus infection; Z83.3 Family history of diabetes mellitus; Z82.3 Family history of stroke
CPT/HCPCS: 36415; 36416; 37224; 75625; 75716; 80048; 82962; 85025; 85730; C1725; C1769; C1887; C1894; J1644; J1815; J2250; J3010; J3490; J7030; Q0163; Q9967

== ENCOUNTER 2021-02-12 06:59 | Outpatient (CLI) | payer MEDICAID, SELFPAY ==
[2021-02-12 07:09] VITALS: BMI 23.3
--- NOTE | 2021-02-12 07:18 | ECG_ITS ---
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 The perfusion scan will be documented separately. DATA: Baseline heart rate was 65 beats per minute. Baseline blood pressure was 149/75 millimeters of mercury. Target heart rate was 167. Maximum heart rate achieved was 85. which was 50 % of the predicted target heart rate. Maximum blood pressure was 149/75 millimeters of mercury. The reason for ending the test was completion of the protocol. The patient did not experience any symptoms. ELECTROCARDIOGRAM: BASELINE: Sinus rhythm. Normal axis. Possible old anterior wall myocardial infarction, otherwise, no ST-T changes suggestive of ischemia noted. No arrhythmia noted. EXERCISE: After Lexiscan injection, no ST-T changes suggestive of ischemic noted. No arrhythmia noted. CONCLUSION: Please note due to baseline abnormality of the EKG specificity and sensitivity of the EKG portion of LexiScan MIBI stress test will be low 1. EKG not suggestive of ischemia 2. Lexiscan injection unremarkable. 3. Perfusion scan will be documented separately. Electronically Signed On 02-12-2021 21:48:12 CDT by KATHERINE HUERTA [email or web address]
--- NOTE | 2021-02-12 07:19 | NMCV_ITS ---
NM benny perf SPECT r/s* [id number] Mercy Haider Age: 55 Gender: F : 1965 Exam Date: 02/12/2021 08:21 Ordering Phys: Katherine Londono MD ([email or web address]) Technologist: BEVERLEY Lam Exam Location: [facility] Indications: CHEST PAIN STRESS TEST Please see separate stress test report in [facility] for full findings IMAGE PROTOCOL Rest/Stress 1 Lexiscan Day Radiopharmaceutical Dose (mCi) Administration Site Administered by Rest: Tc-99m 10.7 IV BEVERLEY Piña Sestamibi Stress:Tc-99m 32.6 IV BEVERLEY Piña Sestamibi Rest: 12-Feb-2021 60 Discovery 630 Stress: 12-Feb-2021 30 Discovery 630 0.4mg Lexiscan. Images obtained in supine and prone position. SPECT RESULTS Technical Quality: Excellent Raw Data Analysis: Normal Image Corrections: No attenuation or motion correction applied Summed Stress Score: 0 Summed Rest Score: 1 Summed Difference Score: 0 PERFUSION FINDINGS Large area of patchy decreased tracer uptake noted in the basal to distal inferior wall of left ventricle on both rest and stress images in the absence of wall motion abnormality most likely suggestive of artifact. FUNCTIONAL RESULTS (calculated via Gated SPECT) Stress Image LV EF (%): 71 Stress EDV (mL):97 TID: 0.98 Stress ESV (mL):28 Rest Image LV EF (%): 71 FUNCTIONAL FINDINGS: There is normal left ventricular systolic function. IMPRESSIONS This study is negative for ischemia. There is no wall motion abnormality. EKG segment will be documented separately. Katherine Londono MD (Electronically Signed) Final Date: 12 Feb 2021 20:02 S
[2021-02-12 09:03] VITALS: BP 141/75; PULSE 84
[2021-02-12] MEDS: regadenoson 0.4 Mg/5 ml Syringe IVP (09:03)
[2021-02-12] MEDS: ondansetron 2 mg/ML SDV 2 mL 4 MG IVP (09:09)
== END 2021-02-12 07:00 | disposition home or self-care (01) ==
LOC: CDL 07:01
PROVIDERS: PCP Family Medicine; Visit Provider Internal Medicine Cardiovascular Disease
DX: R07.9 Chest pain, unspecified (principal)
CPT/HCPCS: 78452; 93017; A9500; J2405; J2785

== ENCOUNTER → 2021-02-16 16:14 | Outpatient (BNVA) | payer MEDICAID, SELFPAY | PROVIDERS: PCP Family Medicine; Visit Provider Nurse Practitioner Family | DX: I73.9 Peripheral vascular disease, unspecified (principal); Z79.899 Other long term (current) drug therapy | CPT/HCPCS: 80048 ==

== ENCOUNTER → 2021-03-02 10:13 | Outpatient (BNVA) | payer MEDICAID, SELFPAY | PROVIDERS: PCP Family Medicine; Visit Provider Family Medicine | DX: E11.42 Type 2 diabetes mellitus with diabetic polyneuropathy (principal); F17.219 Nicotine dependence, cigarettes, with unspecified nicotine-induced disorders | CPT/HCPCS: 80053; 83036 ==

== ENCOUNTER → 2021-03-05 09:56 | Outpatient (BNVA) | payer MEDICAID, SELFPAY | PROVIDERS: PCP Family Medicine; Visit Provider Obstetrics & Gynecology | DX: Z20.822 Contact with and (suspected) exposure to COVID-19 (principal); D25.9 Leiomyoma of uterus, unspecified; E11.9 Type 2 diabetes mellitus without complications; R10.2 Pelvic and perineal pain; Z72.0 Tobacco use; Z79.4 Long term (current) use of insulin | CPT/HCPCS: 87635 ==

== ENCOUNTER → 2021-03-26 10:57 | Outpatient (BNVA) | payer MEDICAID, SELFPAY | PROVIDERS: PCP Family Medicine; Visit Provider Internal Medicine Cardiovascular Disease | DX: M79.604 Pain in right leg (principal); M79.605 Pain in left leg; I73.9 Peripheral vascular disease, unspecified; R07.2 Precordial pain; R07.9 Chest pain, unspecified; Z20.822 Contact with and (suspected) exposure to COVID-19 | CPT/HCPCS: 80048; 85025; 85610; 87635 ==

== ENCOUNTER 2021-04-02 07:31 | Day surgery (SDC) | payer MEDICAID, SELFPAY ==
[2021-04-02] VITALS (45 sets, daily range): BP systolic 71–147; BP diastolic 46–87; PULSE 57–76; RESP 13–21; TEMP 36.7–37; O2SAT 93–100; BMI 24.0
--- NOTE | 2021-04-02 07:30 | XACV_ITS ---
Wt: 68 kg BSA: 1.78 m2 Gender: Female : 1965 Exam Type: Invasive Peripheral Vascular Procedure(s): Procedure Description: Peripheral Cath Diagnostic Procedure Exam Priority: Routine Lower Extremity Interventional Findings With the help of seeker and Glidewire I was able to cross the lesion of the right SFA into the right anterior tibial artery. Multiple balloon angioplasty of the right SFA was performed. Good angiographic result was achieved. Digital subtraction was performed below the knee which showed multiple highly calcified stenosis of right anterior tibial. Right anterior tibia artery was then crossed with a wire and multiple balloon angioplasty was performed.. With the help of seeker and Glidewire I was able to cross the lesion of the right SFA into the right anterior tibial artery. Multiple balloon angioplasty of the right SFA was performed. Good angiographic result was achieved. Digital subtraction was performed below the knee which showed multiple highly calcified stenosis of right anterior tibial. Right anterior tibia artery was then crossed with a wire and multiple balloon angioplasty was performed.Good two-vessel runoff including anterior tibial peroneal was achieved. Excellent angiographic result of the right SFA was achieved. At the end of the procedure anterior and posterior tibial pulse was noted with the Doppler.. Conclusions Reason for peripheral angiogram: Lifestyle limiting claudicationSelective injection of the right SFA performed. Right SFA has mid to distal tight highly calcified subtotally occluded stenosis. Right popliteal artery has luminal irregularity, right tibioperoneal trunk has luminal irregularity. Right anterior tibial artery has mid and distal tight stenosis, right posterior tibial is not well visualized, right peroneal artery has luminal irregularities.. Recommendations 1-Return to inpatient for close monitoring and routine cath care 2-Risk factor modification for secondary prevention 3-Statin and aspirin 81 mg life--long, if tolerated 4-Continue Plavix 75mg p.o. daily 5-Continue optimal medical management 6-Follow up with Dr. Londono in four weeks and your primary care in 10 days. Access Site Site: Left Femoral artery Sheath Size: 6 Fr Hemost... Method: Suture Hemost... Success: Successful Procedure Details Findings Procedure Consent Obtained. Pre-Procedure Time Out. Identified patient by full name and date of as verbalized by the patient/guarantor. Does the consent match the physician's order: Yes. Accurate & Complete Informed Consent: Yes. Inpatient/Outpatient History & Physical on Chart: Yes. If H&P is completed, is and addenduem needed: Yes; If yes, is the addendum complete: N/A. Visualize and Verify Site with Patient/Guarantor: N/A. Relevant Radiology Images available: N/A. Pre-op teaching completed and patient verbalized understanding. The risks, benefits, and alternatives of sedation and/or procedure were discussed by physician. The patient agrees to continue. Procedure started. Correct patient, site and procedure confirmed by cath team. PERRLA. Strong, equal hand traveling crane operator bilaterally. Lungs clear x 5 lobes. IV Site on Arrival: 20 gauge in the left anticubital. Pre Procedural Pulses: right dorsalis pedis was Doppled. Pre Procedural Pulses: left dorsalis pedis was 2+. Pre Procedural Pulses: bilateral posterior tibial was Doppled. Pre Procedural Pulses: bilateral radial was 3+. Oxygen started at 2liters/min via nasal canula. bilateral groins was prepped with chloroprep then draped in the usual sterile fashion. Baseline sample Acquired. HR: 87 BPM. Physician notified. Physician arrived. RT Santos was relieved by Thang Mock RN, BRICK POINTER as monitoring person. Physician scrubbed in. Immediate Pre-Procedure Time Out. Correct Patient: Yes; Correct Procedure: Yes; Correct Site: Yes; Correct Patient Position: Yes; Correct Supplies: Yes; Dried Flammable Prep: Yes; Blood Products Available: N/A;. Lidocaine 1% infiltrated to the right groin. Arterial access obtained with micropuncture set. A 5FrFr RIM catheter in over wire. Hand injection through the RIM catheter of the distal Aorta. Glidewire inserted and advanced down the right lower extremity. Seated in the right mid SFA. Sheath upsized to a 6 Fr. Right external iliac selected and arteriogram with runoff performed @ 10 mL/sec for a total of 30 mL. Seeker inserted over the glidewire. Glidewire advanced down the SFA. Seated in peroneal, Right. Seeker out over the wire. Inflation number : 1 A AB [place] 35 LOSS PREVENTION COORDINATOR Catheter [id number] was prepped and advanced across the Mid Superficial Femoral, Right , then inflated to 6 KAMRON for 2:00 seconds. Inflation number: 2 The AB [place] 35 LOSS PREVENTION COORDINATOR Catheter [id number] was reinflated across the Mid Superficial Femoral, Right, to 8 KAMRON for 2:34 seconds. Balloon out. Right common femoral selected and arteriogram with runoff performed @ 10 mL/sec for a total of 30 mL. Seeker inserted and seated in the peroneal, right. Hand Injeaction of the peroneal artery. Glidewire removed. Command 0.014 wire inserted and seated in the peroneal right. Seeker removed. Inflation number : 2 A AB [place] 14 OTW [id number] was prepped and advanced across the Anterior Tibial, Right , then inflated to 15 KAMRON for 2:04 seconds. Inflation number: 1 The AB [place] 14 OTW [id number] was reinflated across the Anterior Tibial, Right, to 0 KAMRON for 0:00 seconds. Inflation number: 3 The AB [place] 14 OTW [id number] was reinflated across the Anterior Tibial, Right, to 15 KAMRON for 2:00 seconds. Balloon out. Right common femoral selected and arteriogram with runoff performed @ 10 mL/sec for a total of 30 mL. Inflation number : 4 A AB [place] 14 OTW [id number] was prepped and advanced across the Anterior Tibial, Right , then inflated to 8 KAMRON for 2:16 seconds. Balloon out. Right common femoral selected and arteriogram with runoff performed @ 10 mL/sec for a total of 30 mL. Wire out. Right common femoral selected and arteriogram with runoff performed @ 10 mL/sec for a total of 30 mL. 6 fr Flexore exchanged for a 6ft short sheath. Physician review of films. Physician scrubbed out. A Suture was successful obtaining hemostatsis at the Left Femoral artery insertion site. Sheath(s) sutured into position with 2-0 silk and sterile 4x4's and Op-site applied over the site. No oozing or signs and symptoms of hematoma noted. Arterial sheath flushed and connected to tranducer and pressure bag with heparinized saline. Post Procedure: Pulses reassessed and unchanged. PERRLA. Strong, equal hand traveling crane operator bilaterally. Medication's Wasted: Lidocaine 1% = 2 mL. Medication's Wasted: Nitro = 49.2 mg. Total IV fluids: 325 mL. Medication's Wasted: Fentanyl = 50 mcg. Fluoro: 18:09. Contrast type used: Visipaque 320 mgI/mL, 500 mL bottle. [id number]. Post-op diagnosis: SEVERE PAD MID TO DISTAL SFA AND ANTERIOR TIBIAL RIGHT; POST LOSS PREVENTION COORDINATOR. Complications: NONE. Estimated blood loss: 5mL-10mL. Procedure completed. Patient transferred by bed to CPRU. Procedure Medications Start: 9:28 AM Stop: 9:28 AM Medication: Versed Amount: 1 mg Route: I.V. Start: 9:28 AM Stop: 9:28 AM Medication: Fentanyl Amount: 50 mcg Route: I.V. Start: 9:32 AM Stop: 9:32 AM Medication: Versed Amount: 1 mg Route: I.V. Start: 9:36 AM Stop: 9:36 AM Medication: Fentanyl Amount: 50 mcg Route: I.V. Start: 9:40 AM Stop: 9:40 AM Medication: Versed Amount: 1 mg Route: I.V. Start: 9:54 AM Stop: 9:54 AM Medication: Heparin Amount: 5000 units Route: I.V. Start: 9:58 AM Stop: 9:58 AM Medication: Versed Amount: 1 mg Route: I.V. Start: 10:15 AM Stop: 10:15 AM Medication: Versed Amount: 1 mg Route: I.V. Start: 10:17 AM Stop: 10:17 AM Medication: Fentanyl Amount: 50 mcg Route: I.V. Start: 10:30 AM Stop: 10:30 AM Medication: 0.9% Saline Amount: 250 ml Route: I.V. bolus Start: 10:31 AM Stop: 10:31 AM Medication: Nitrogylcerin Amount: 400 mcg Route: I.A. Start: 10:37 AM Stop: 10:37 AM Medication: Versed Amount: 1 mg Route: I.V. Start: 10:43 AM Stop: 10:43 AM Medication: Nitrogylcerin Amount: 400 mcg Route: I.A. I, the attending physician, have reviewed and verified all procedure medications. Yes, all medications given per verbal order History/Risk Factors Tobacco Use: Current/Recent(w/in 1 year) Report Signatures Finalized by Katherine Londono MD on 04/15/2021 07:33 PM
[2021-04-02] MEDS: diphenhydrAMINE 50 mg Capsule PO (07:50)
--- NOTE | 2021-04-02 09:02 | P.HPUD_ITS ---
Surgery/Procedure H&P Update DATE OF PROCEDURE: April 02, 2021 DATE H&P PERFORMED: 03/20/21 H&P UPDATE INFORMATION: I have reviewed H&P completed within last 30 days, I have examined patient prior to procedure and No changes to prior documentation PREOP DIAGNOSIS: Severe peripheral vascular disease lifestyle limiting claudication of R leg PLANNED PROCEDURE: Operation Date: 04/02/21 08:30 Proposed Procedures p Peripheral Diagnostic 69184 I73.9(Not Applicable) - Katherine Londono MD PATIENT REASSESSED PRIOR TO SEDATION, WITH NO CHANGE NOTED: Yes PHYSICAL EXAM: alert, oriented x 3 and clear to auscultation bilaterally AIRWAY EVAL/ANESTHESIA PLAN: ASA II and Risks, benefits & alternatives of s edation and/or procedure discussed ADDITIONAL INFORMATION: Patient has been explained all risk benefit and alternative for the procedure major minor bleed thromboembolic phenomena leading to acute limb ischemia leading to amputation. She would like to proceed with it.
--- NOTE | 2021-04-02 11:13 | SUR.PHASEI ---
HOLDING NOTE No room assiged. Patient brought back to CPRU for extended recovery. Condition stable. VS and assessments per flowsheet. Call light within easy reach. Informed to call for needs.
[2021-04-02 13:30] LABS: Partial Thromboplastin Time 30.7 SECONDS (23.9-36.7)
[2021-04-02] MEDS: atorvastatin 40 mg Tablet 20 MG PO (16:10)
[2021-04-02] MEDS: aspirin 81 mg EC Tablet PO (16:10)
[2021-04-02] MEDS: clopidogrel 75 mg Tablet PO (16:11)
[2021-04-02] MEDS: fentaNYL 50 mcg/mL INJ 2mL IVP (16:11)
[2021-04-02] MEDS: gabapentin 300 mg Capsule PO ×2 (16:24→19:54)
--- NOTE | 2021-04-02 17:15 | PC.NURSE ---
Cardiac sheath pulled at approximately 1640, pressure was held for 20min, no hematoma or swelling noted. drsg applied dry and intact. Pt tolerated well. will continue to monitor.
[2021-04-02] MEDS: sodium chloride 0.9% 1,000 ML 100 ML IV (17:18)
[2021-04-02] MEDS: HYDROcodone-acetaminophen 5-325 mg Tablet 1 TAB PO ×2 (19:18→23:05)
[2021-04-02] MEDS: temazepam 15 mg Capsule PO (19:54)
--- NOTE | 2021-04-02 20:30 | PC.NURSE ---
Received bedside report from NAHOMI Beasley. Patient resting in bed. Son at bedside. Patient has been upset today due to pain in bilateral legs. Patient reports being out of her gabapentin at home since last Tuesday . Administered gabapentin as ordered. Patient currently has better mood. Completely cooperative.
--- NOTE | 2021-04-02 22:51 | PC.NURSE ---
Patient up to ambulate. Dressing to left groin remain c,d,i. No s/s of bleeding or hematoma formation observed. Patient continues to report pain 7/10 to bilateral legs. Medication given as ordered.
[2021-04-02] MEDS: ALPRAZolam 0.5 mg Tablet 0.25 MG PO (23:05)
[2021-04-03 00:06] VITALS: BP 130/61; PULSE 61; RESP 15
[2021-04-03 04:06] VITALS: BP 123/75; PULSE 60; RESP 13; TEMP 36.7
[2021-04-03] MEDS: HYDROcodone-acetaminophen 5-325 mg Tablet 1 TAB PO (04:44)
[2021-04-03 05:10] LABS: Basophils # 0.1 10^3/uL (0.0-0.1); Basophils % 0.7 %; Eosinophils # 0.1 10^3/uL (0.0-0.8); Eosinophils % 1.6 %; Hematocrit 41.1 % (37.0-47.0); Hemoglobin 13.5 g/dL (11.5-15.3); Lymphocytes # 2.2 10^3/uL (0.8-4.8); Lymphocytes % 30.2 %; Mean Corpuscular HGB Conc 32.8 g/dL (30.0-36.0); Mean Corpuscular Hemoglobin 30.3 pg (28.0-34.0); Mean Corpuscular Volume 92.4 fL (81-99); Mean Platelet Volume 9.8 fL (7.4-10.4); Monocytes # 0.6 10^3/uL (0.2-0.9); Monocytes % 7.8 %; Neutrophils # 4.32 10^3/uL (1.8-7.7); Neutrophils % 59.4 %; Nucleated Red Blood Cells % 0 %; Platelet Count 255 10^3/cmm (130-400); Red Blood Count 4.45 10^6/uL (4.1-5.3); Red Cell Distribution Width 12.4 % (12.1-15.1); White Blood Count 7.3 10^3/uL (4.0-10.0)
[2021-04-03 05:30] LABS: Anion Gap 12.1 (5-19); Blood Urea Nitrogen 14 mg/dL (6-20); Calcium 8.7 mg/dL (8.5-10.5); Carbon Dioxide 27 mmol/L (22-29); Chloride 105 mmol/L (98-107); Glomerular Filtration Rate 232.7 mL/min (90-130); Glucose 133 mg/dL (65-115); Osmolality Calculated 292 mOsm/kg (285-295); Potassium 4.1 mmol/L (3.5-5.1); Sodium 140 mmol/L (136-145)
[2021-04-03 06:00] VITALS: PULSE 59
[2021-04-03 09:03] VITALS: BP 126/59; PULSE 67; RESP 17; TEMP 36; O2SAT 97
[2021-04-03] MEDS: gabapentin 300 mg Capsule PO (09:59)
[2021-04-03] MEDS: aspirin 81 mg EC Tablet PO (09:59)
[2021-04-03] MEDS: clopidogrel 75 mg Tablet PO (09:59)
[2021-04-03] MEDS: sitagliptin 100 mg Tablet 50 MG PO (09:59)
[2021-04-03] MEDS: atorvastatin 40 mg Tablet 20 MG PO (10:01)
[2021-04-03] MEDS: lisinopril 2.5 mg Tablet PO (10:01)
--- NOTE | 2021-04-03 10:08 | PC.NURSE ---
Dr. ingram Pt stated that she is discharged today. Called Dr. Londono via phone to let him know to put his discharge orders.
--- NOTE | 2021-04-03 10:14 | PM.SDS ---
Short Stay Summary Providers Date of Admit/Discharge: 04/03/21 Attending Provider: Katherine Londono MD Primary Care Provider: Yady Farmer DO Chief Complaint: periphreal diagnostic HPI History of Present Illness Mercy Haider is a 55 year old female past medical history significant for severe peripheral arterial disease, lifestyle limiting claudication underwent peripheral angiogram and balloon angioplasty of subtotally occluded mid to distal right SFA and mid to distal anterior tibial vessel. Excellent angiographic result with good flow was restored. No overnight event noted. This morning she complaining of some soreness in the legs. Anterior posterior tibial both are dopplerable. Left groin wound looks good no hematoma no bruising. She has been advised not to lift more than a gallon of milk for next 3 days. Advised to take care of her left groin wound by dressing change every other day. Advised to let us know if notes swelling bleeding redness of the groin or fever. She is going to follow-up with Ms. Nikki Ferrari cardiology nurse practitioner in 7 to 10 days. She will see me in 6-month. Review of Systems Eyes: Denies: photophobia All/Imm: Denies: acute wheezing Home Meds/Allergies Home Medications and Allergies Allergies Allergy/AdvReac Type Severity Reaction Status Date / Time No Known Allergies Allergy Verified 04/01/21 09:07 PFSH Acute PFSH: Medical History Abscess of right groin Claudication of both lower extremities Enlarged uterus Hidradenitis suppurativa History of MRSA infection Hyponatremia No pertinent past medical history Surgical History H/O tubal ligation History of appendectomy Family History Mother Diabetes Stroke Hypertension Hyperlipidemia Thyroid disease Brother Diabetes Father Hypertension Hyperlipidemia Denies family history of Ovarian cyst Heart disease Chronic kidney disease (CKD) Cancer Social History Smoking and tobacco status: current some day smoker Second hand smoke exposure: No Alcohol intake: never Desire information about alcohol rehabilitation?: No Desire information about substance/drug rehabilitation?: No Female Reproductive History: Date of last menstrual period: 09/26/04 Dietary Habits: Current diet type/program: regular Vitals/I&O/Wt Last Vital Signs Temp 96.8 F L 04/03/21 09:03 Pulse 67 04/03/21 09:03 Resp 17 04/03/21 09:03 BP 126/59 04/03/21 09:03 Pulse Ox 97 04/03/21 09:03 04/02/21 04/03/21 04/03/21 22:59 06:59 14:59 Intake Total 360 / 360 583.333 / 943.333 240 / 240 Balance 360 / 360 583.333 / 943.333 240 / 240 Weight last 48 hrs Weight 149 lb Physical Exam Narrative: EXAM NARRATIVE: GENERAL: Patient is alert, awake and oriented x3. NECK: No jugular vein distension. HEENT: No cyanosis. No icterus. No pallor. HEART: Regular S1 and S2. No murmur, rub or gallop. LUNGS: Clear to auscultate bilaterally. ABDOMEN: Soft, nontender and nondistended. Positive bowel sounds. No guarding, rebound or tenderness. CENTRAL NERVOUS SYSTEM: Grossly nonfocal. EXTREMITIES: Lower extremities without edema bilaterally. Pulses dopplerable in the lower extremities, both dorsalis pedis and posterior tibial. Const: COMMON NORMALS: alert Resp: COMMON NORMALS: clear to auscultation bilaterally AUSCULTATION: clear to auscultation bilaterally Neuro: SENSORIUM/ORIENTATION: Yes alert Hospital Course Hospital Course As above SSS Data Data Completed and Pending: Pending at discharge Category Date Time Status JANITORIAL ASSISTANT request for service Routin e Exams 04/02/21 07:30 Taken Discharge Plan Discharge Patient Disposition: Home Condition: Stable Prescriptions: Continued aspirin [Adult Low Dose Aspirin] 81 mg tablet,delayed release (DR/EC) 81 mg PO DAILY Qty: 90 RF: 3 lisinopril 2.5 mg tablet 2.5 mg PO DAILY Qty: 90 RF: 3 simvastatin 20 mg tablet 20 mg PO DAILY Qty: 90 RF: 3 Chantix Continuing Month Box 1 mg tablet 1 mg PO BID Qty: 56 RF: 1 Januvia 50 mg tablet 50 mg PO DAILY Qty: 30 RF: 0 (DME) lancets-blood glucose strips 30 gauge combo pack See Rx Instructions .ROUTE .MEDSUPPLY Qty: 200 RF: 3 gabapentin 300 mg capsule 300 mg PO TID Qty: 90 RF: 0 metformin 500 mg tablet 500 mg PO BID 30 Days Qty: 60 RF: 5 Hold Instructions: Resume on 02/07/21. (DME) blood-glucose meter [Accu-Chek Guide Glucose Meter] Misc See Rx Instructions .ROUTE .MEDSUPPLY Qty: 1 RF: 0 clopidogrel [Plavix] 75 mg tablet 75 mg PO DAILY Qty: 30 RF: 1 Discontinued cilostazol 50 mg tablet 50 mg PO BID Qty: 180 RF: 3 Discharge Orders: Discharge Order (Routine); Ordered 04/03/21 Ordered By: Katherine Londono Referrals: Katherine Londono MD [Physician] - 07/23/21 1:15 pm (Please keep the cardiology followup with Dr. Londono at [facility] on July 23 at 1:15pm) Nikki Ferrari FNP [Nurse Practitioner] - 04/09/21 9:00 am (You have a post procedure followup with ELICIA Escobar at [facility] on) Discharge Diet: Cardiac and Low Cholesterol Discharge Activity: Increase activity as tolerated Patient Instructions: Post Angiogram Home Care Instructions Activity Restrictions/Additional Instructions: Follow-up with Nikki Ferrari in 7 days. Follow-up with Dr. Londono as scheduled Attestations Medical Necessity Statement*: Patient can be discharged home Time Spent in Patient Care*: less than 30 min Status at Discharge: Cognitive status at discharge: cognitively intact, Behavioral status at discharge: cooperative, Quality Metrics Clinical Quality Measures: During this hospital stay, did patient experience: None Coding Level of Care Code Established Pt Acute Fur Designer for Chg Fwd Patient Type Established History Detailed Exam Detailed Medical Decision Making Moderate Complexity
[2021-04-03 10:20] VITALS: BP 126/59; PULSE 67; RESP 17; TEMP 36.6; O2SAT 97
--- NOTE | 2021-04-03 10:30 | PC.NURSE ---
discharge to home post angiogram home care instructions discuss to pt. pt verbalizes understanding. informed on her follow-up appointments.
== END 2021-04-03 10:30 | disposition home or self-care (01) ==
LOC: CCL 07:35 → CSU 14:56
PROVIDERS: PCP Family Medicine; Visit Provider Internal Medicine Cardiovascular Disease
DX: I70.201 Unspecified atherosclerosis of native arteries of extremities, right leg (principal); Z86.14 Personal history of Methicillin resistant Staphylococcus aureus infection; F17.210 Nicotine dependence, cigarettes, uncomplicated
CPT/HCPCS: 36415; 37224; 37228; 75710; 80048; 85025; 85730; C1725; C1769; C1887; C1894; J1644; J2250; J3010; J3490; J7030; Q0163; Q9967

== ENCOUNTER 2021-05-21 10:49 | Outpatient (CLI) | payer MEDICAID, SELFPAY ==
--- NOTE | 2021-05-21 10:45 | USCV_ITS ---
Mercy Haider Age: 55 Gender: F : 1965 Exam Date: 05/21/2021 11:00 Ordering Phys: Yady Farmer DO Technologist: VICKEY [place] [facility] [place]: PA[place] IN LLE PROCEDURES: Venous duplex imaging was performed in only the left lower extremity. The following venous structures were evaluated: common femoral vein, profunda vein, proximal portion of the greater saphenous vein, superficial femoral vein, and the popliteal vein. In addition, the posterior tibial and peroneal trunk were evaluated. Serial compression, augmentation maneuvers, and spectral Doppler flow evaluation were performed. FINDINGS: Normal 2-D Doppler and augmentation and compressibility throughout the lower extremity venous structures. Additional imaging through the proximal calf veins also reveals no thrombus. Limited evaluation of the greater saphenous vein is patent with no thrombus. CONCLUSIONS No DVT left lower extremity. Dr. Yanely Warren DO (Electronically Signed) Final Date: 21 May 2021 13:09 S
== END 2021-05-21 10:50 | disposition home or self-care (01) ==
LOC: RAD 10:51
PROVIDERS: PCP Family Medicine; Visit Provider Family Medicine
DX: M79.662 Pain in left lower leg (principal)
CPT/HCPCS: 93971

== ENCOUNTER → 2021-07-13 11:44 | Outpatient (BNVA) | payer MEDICAID, SELFPAY | PROVIDERS: PCP Family Medicine; Visit Provider Family Medicine | DX: E11.42 Type 2 diabetes mellitus with diabetic polyneuropathy (principal); F17.219 Nicotine dependence, cigarettes, with unspecified nicotine-induced disorders; M54.42 Lumbago with sciatica, left side; R60.0 Localized edema | CPT/HCPCS: 80053; 83036 ==

== ENCOUNTER 2021-07-14 08:16 | Outpatient (CLI) | payer MEDICAID, SELFPAY ==
--- NOTE | 2021-07-14 08:45 | XR_ITS ---
WS: [id number] LUMBAR SPINE: 3 VIEWS TECHNIQUE: AP, lateral and L5-S1 spot. HISTORY: low back pain COMPARISON: No similar studies. Prior CT 12/30/2020. Mild LEFT curvature lumbar spine was straightening of the normal lordosis. Small hypertrophic endplat e osteophytes at all levels and mild facet arthritis. No fracture. No loss of disc space or vertebral body height. Mild narrowing of the LEFT SI joint and sclerosis. Ovoid nodule of increased density in the RIGHT abdomen of uncertain etiology. This was not present on the prior CT of 12/30/2020 but may not have been included. Variable density nodule measures 12 x 23 mm . May be within the GI tract or retroperitoneum. XR/XR lumbar spine 2-3V* [id number] IMPRESSION: 1. No acute lumbar spine fracture. 2. Mild lumbar spondylosis and mild LEFT curvature. 3. Mild LEFT SI joint arthritis. 4. 12 x 23 high density nodule in the RIGHT abdomen. Etiology uncertain but no t visualized on the prior CT of 12/30/2020. Suspect this is probably within the G I tract. Consider further evaluation to delineate the etiology. I suspect this is probably within the GI tract. Follow-up KUB in 3-4 days recommended. If this nodule persists CT of the abdomen and pelvis may be necessary.
== END 2021-07-14 08:17 | disposition home or self-care (01) ==
PROVIDERS: PCP Family Medicine; Visit Provider Family Medicine
DX: M47.816 Spondylosis without myelopathy or radiculopathy, lumbar region (principal); M47.818 Spondylosis without myelopathy or radiculopathy, sacral and sacrococcygeal region
CPT/HCPCS: 72100

== ENCOUNTER → 2021-07-21 09:43 | Outpatient (BNVA) | payer MEDICAID, SELFPAY | PROVIDERS: PCP Family Medicine; Referring Provider Family Medicine; Visit Provider Anesthesiology Pain Medicine | DX: G89.29 Other chronic pain (principal); M48.062 Spinal stenosis, lumbar region with neurogenic claudication; M54.42 Lumbago with sciatica, left side; M79.604 Pain in right leg; M79.605 Pain in left leg; Z79.891 Long term (current) use of opiate analgesic; F17.200 Nicotine dependence, unspecified, uncomplicated | CPT/HCPCS: 99204 ==

== ENCOUNTER 2021-07-23 14:40 | Outpatient (CLI) | payer MEDICAID, SELFPAY ==
--- NOTE | 2021-07-23 14:47 | XR_ITS ---
WS: [id number] ABDOMEN KUB CLINICAL INFORMATION: Renal/ureteral calculi. COMPARISON: July 14, 2021 FINDINGS:Previously described ovoid density in the right upper quadrant not seen today Moderate fecal retention throughout the colon. Normal small bowel. No evidence of high-grade small or large bowel obstruction. Pelvic phleboliths. Mild spondylitic changes lumbar spine. Moderate degener ative arthritis both hips partially visualized. XR/XR KUB [id number] Impression: 1. Moderate pancolonic constipation. 2. Previously described ovoid density in the right upper quadrant not seen tod ay
== END 2021-07-23 14:41 | disposition home or self-care (01) ==
PROVIDERS: PCP Family Medicine; Visit Provider Family Medicine
DX: R93.89 Abnormal findings on diagnostic imaging of other specified body structures (principal); N20.2 Calculus of kidney with calculus of ureter; K59.09 Other constipation
CPT/HCPCS: 74018; 87070; 87075; 87077; 87184; 87205

== ENCOUNTER → 2021-07-24 09:39 | Outpatient (BNVA) | payer MEDICAID, SELFPAY | PROVIDERS: PCP Family Medicine; Referring Provider Internal Medicine Cardiovascular Disease; Visit Provider Internal Medicine Cardiovascular Disease | DX: Z01.818 Encounter for other preprocedural examination (principal); Z20.822 Contact with and (suspected) exposure to COVID-19 | CPT/HCPCS: 80048; 85025; 85610; 87635 ==

== ENCOUNTER 2021-07-30 08:57 | Outpatient (CLI) | payer MEDICAID, SELFPAY ==
[2021-07-30] VITALS (25 sets, daily range): BP systolic 97–160; BP diastolic 53–85; PULSE 64–77; RESP 7–21; TEMP 36.8–37.3; O2SAT 99; BMI 25.2
--- NOTE | 2021-07-30 09:00 | XACV_ITS ---
Ht: 168 cm Wt: 71 kg BSA: 1.83 m2 Any Known Allergies: No known allergies Gender: Female : 1965 Exam Type: Invasive Peripheral Vascular Procedure(s): Procedure Description: Peripheral Cath Diagnostic Procedure Procedure Description: Peripheral vascular Intervention Procedure Description: PV Balloon Procedure Description: PV Atherectomy Exam Priority: Routine [facility], [facility]; Lower Extremity Interventional Findings Intervention: Right common femoral vessel was used to cross the left SFA popliteal vessel into tibial vessels. Glidewire and seeker was used for crossing the long lesion. Viper wire was exchanged for a Glidewire. Using 2.0 bur ostial to distal left SFA popliteal vessel was arthrectom ies . Multiple balloon angioplasties were performed in ostial to distal left SFA and popliteal vessel. Good angiographic result was achieved in left SFA popliteal vessel. Good flow was noted in the left tibioperoneal trunk which has diffuse luminal irregularities, good two-vessel runoff was noted including left anterior tibial and peroneal. Left posterior tibial appeared to be chronically occluded since we have good two-vessel runoff in the left leg resected the result. . Conclusions Indication for peripheral angiogram: Critical limb ischemia with nonhealing left foot ulcer under treatment of wound care center., Lifestyle limiting claudication of right leg.Abdominal aortic angiogram: Abdominal aorta without any aneurysm. Bilateral renal arteries has luminal irregularity without significant stenosis. Bilateral common iliac arteries has luminal irregularity with mild stenosis on the left side. Bilateral external and internal iliac arteries albumin irregularities. Bilateral common femoral arteries are luminal irregularities. Bilateral profundofemoral artery has luminal irregularity. Bilateral SFAs chronically occluded at the ostium. On the right side it reconstitute towards mid to distal segment. Right popliteal tibioperoneal trunk has luminal irregularities. Right anterior tibial artery has luminal irregularity it is not well visualized beyond the proximal segment most likely due to contrast issues. Right peroneal artery was visualized in the proximal segment, rest of the vessel was not well visualized most likely due to contrast problem. Right posterior tibial appear to be chronically occluded. Left SFA is occluded in the ostium. No flow was observed in popliteal tibioperoneal trunk or below the knee. null was treated with three Balloon. Recommendations Continue current medical management and risk factor modification. Follow up with PCP as directed. Hemodynamic Data Phase:Rest AO : 132.0 / 63.0 ( 78.0 ) @ 8:46:00 AM 104.0 / 49.0 ( 72.0 ) @ 8:47:00 AM 101.0 / 48.0 ( 72.0 ) @ 8:48:00 AM 99.0 / 53.0 ( 72.0 ) @ 9:13:00 AM 108.0 / 51.0 ( 72.0 ) @ 10:03:00 AM Access Site Site: Right Femoral artery Sheath Size: 6 Fr Hemost... Method: Suture Hemost... Success: Successful Procedure Details Findings Procedure Consent Obtained. Pre-Procedure Time Out. Identified patient by full name and date of as verbalized by the patient/guarantor. Does the consent match the physician's order: Yes. Accurate & Complete Informed Consent: Yes. Inpatient/Outpatient History & Physical on Chart: Yes. If H&P is completed, is and addenduem needed: No. Visualize and Verify Site with Patient/Guarantor: N/A. Relevant Radiology Images available: Yes. Patient's family available by telephone. Equipment: 6F - Femoral. Cardiac Cath Pack. ACIST Manifold Kit Model BT 2000. Heparinized Saline (2 units/mL), 1000 mL bag. Kit, Micropuncture. The risks, benefits, and alternatives of sedation and/or procedure were discussed by physician. The patient agrees to continue. Procedure started. Correct patient, site and procedure confirmed by cath team. PERRLA. Strong, equal hand transit man bilaterally. Lungs clear x 5 lobes. IV Site on Arrival: 20 gauge in the right anticubital. IV Fluids: 0.9% NaCl at KVO. 0 mL infused prior to rd lab technician. Oxygen started at 2liters/min via nasal canula. bilateral groins was prepped with chloroprep then draped in the usual sterile fashion. Physician notified. Baseline sample Acquired. HR: 75 BPM. Physician arrived. Pre Procedural Pulses: bilateral dorsalis pedis was 2+. Pre Procedural Pulses: bilateral posterior tibial was Doppled. Physician scrubbed in. Time out performed with cath team. Lidocaine 1% infiltrated to the right groin. Arterial access obtained with micropuncture set. A 5 Fr UF catheter in over wire. Abdominal aortogram performed in AP @ 10 mL/sec for a total of 30 mL. Sheath upsized to a 7 Fr. Catheter removed over the glide wire. Left common iliac selected and arteriogram with runoff performed @ 10 mL/sec for a total of 30 mL. Seeker catheter inserted over the wire. Glidewire out. Left anterior tibial selected and hand injection performed. Seeker support catheter out over the glidewire. 2.0 Aayush in over the Viperwire. Add inventory: Viperwire Advance, Diamondback 360 2.0 [place]. Orbital atherectomy of the left lower extremity performed. [place] removed. Seeker support catheter in over the Viperwire. Viperwire out. Glidewire in. Seeker support catheter out. Inflation number : 1 A AB [place] 35 ORNAMENT SETTER Catheter [id number] was prepped and advanced across the Superficial Femoral, Left , then inflated to 8 KAMRON for 1:02 seconds. Inflation number: 2 The AB [place] 35 ORNAMENT SETTER Catheter [id number] was reinflated across the Superficial Femoral, Left, to 23 KAMRON for 1:10 seconds. Balloon out. Left superficial femoral selected and arteriogram with runoff performed @ 10 mL/sec for a total of 30 mL. Inflation number: 3 The AB [place] 35 ORNAMENT SETTER Catheter [id number] was reinflated across the Superficial Femoral, Left, to 6 KAMRON for 0:32 seconds. Inflation number: 4 The AB [place] 35 ORNAMENT SETTER Catheter [id number] was reinflated across the Superficial Femoral, Left, to 8 KAMRON for 0:33 seconds. Inflation number: 5 The AB [place] 35 ORNAMENT SETTER Catheter [id number] was reinflated across the Superficial Femoral, Left, to 8 KAMRON for 0:32 seconds. Balloon out , results checked. Inflation number : 6 A Bard Lutonix 035 [id number] was prepped and advanced across the Superficial Femoral, Left , then inflated to 6 KAMRON for 2:00 seconds. Balloon out , results checked. Inflation number : 7 A AB ARMADA 35 OTW [id number] was prepped and advanced across the Superficial Femoral, Left , then inflated to 5 KAMRON for 2:06 seconds. Balloon out. Left superficial femoral selected and arteriogram with runoff performed @ 10 mL/sec for a total of 30 mL. Seeker support catheter in over the glidewire. Glidewire out. Hand injection performed in DSA through the seeker of the left AT, PT, Peroneal. Long 7Fr sheath exchanged for short 7Fr sheath. Sheath injected in Right common femoral artery and runoff performed. Dr. Londono scrubbed out. Sheath(s) sutured into position with 2-0 silk and sterile 4x4's and Op-site applied over the site. No oozing or signs and symptoms of hematoma noted. Post Procedure: Pulses reassessed and unchanged. PERRLA. Strong, equal hand transit man bilaterally. No VTE prophylaxis required. Medication's Wasted: Heparin = 2000 units. Medication's Wasted: Nitro = 49 mg. Medication's Wasted: Nitro = 49.8 mg. Medication's Wasted: Lidocaine 1% = 4 mL. Medication's Wasted: Verapamil = 2.5 mg. Total IV fluids: 347 mL. A Suture was successful obtaining hemostatsis at the Right Femoral artery insertion site. Post-op diagnosis: Chronically occluded left SFA to Distal PT. S/P orbital atherectomy and drug coated ballooning. Complications: none. Estimated blood loss: 5mL-10mL. Procedure completed. Patient transferred by bed to 1st floor. Vital chart was stopped. Procedure Medications Start: 10:29 AM Stop: 10:29 AM Medication: Versed Amount: 1 mg Route: I.V. Start: 10:29 AM Stop: 10:29 AM Medication: Fentanyl Amount: 50 mcg Route: I.V. Start: 10:31 AM Stop: 10:31 AM Medication: Versed Amount: 1 mg Route: I.V. Start: 10:31 AM Stop: 10:31 AM Medication: Fentanyl Amount: 50 mcg Route: I.V. Start: 10:38 AM Stop: 10:38 AM Medication: Versed Amount: 1 mg Route: I.V. Start: 10:50 AM Stop: 10:50 AM Medication: Heparin Amount: 5000 units Route: I.V. Start: 10:53 AM Stop: 10:53 AM Medication: Versed Amount: 1 mg Route: I.V. Start: 11:09 AM Stop: 11:09 AM Medication: Versed Amount: 1 mg Route: I.V. Start: 11:12 AM Stop: 11:12 AM Medication: Versed Amount: 1 mg Route: I.V. Start: 11:12 AM Stop: 11:12 AM Medication: Fentanyl Amount: 25 mcg Route: I.V. Start: 11:18 AM Stop: 11:18 AM Medication: Heparin Amount: 2000 units Route: I.V. Start: 11:19 AM Stop: 11: AM Medication: Fentanyl Amount: 25 mcg Route: I.V. Start: 11: AM Stop: : AM Medication: Fentanyl Amount: 25 mcg Route: I.V. Start: 11: AM Stop: : AM Medication: 0.9% Saline Amount: 250 ml Route: I.V. bolus Start: 11: AM Stop: : AM Medication: Nitrogylcerin Amount: 400 mcg Route: I.A. Start: 11:29 AM Stop: 11:29 AM Medication: Fentanyl Amount: 25 mcg Route: I.V. Start: 11:34 AM Stop: 11:34 AM Medication: Versed Amount: 1 mg Route: I.V. Start: 11:41 AM Stop: 11:41 AM Medication: Versed Amount: 1 mg Route: I.V. Start: 11:45 AM Stop: 11:45 AM Medication: Nitrogylcerin Amount: 400 mcg Route: I.A. Start: 11:53 AM Stop: 11:53 AM Medication: Nitrogylcerin Amount: 200 mcg Route: I.A. I, the attending physician, have reviewed and verified all procedure medications. Yes, all medications given per verbal order History/Risk Factors Hypertension: No Dyslipidemia: No Obesity: No Renal Disease: No Tobacco Use: Current/Recent(w/in 1 year) Prior Interventions PCI: No CABG: No Valve Surgery: No Report Signatures Finalized by Katherine Londono MD on 08/11/2021 07:28 PM
[2021-07-30] MEDS: diphenhydrAMINE 50 mg Capsule PO (09:43)
--- NOTE | 2021-07-30 10:03 | P.HPUD_ITS ---
Surgery/Procedure H&P Update DATE OF PROCEDURE: July 30, 2021 DATE H&P PERFORMED: 07/23/21 H&P UPDATE INFORMATION: I have reviewed H&P completed within last 30 days and I have examined patient prior to procedure PREOP DIAGNOSIS: Critical limb ischemia pain at rest of left leg and foot PLANNED PROCEDURE: Operation Date: 07/30/21 10:00 Proposed Procedures p Peripheral Diagnostic(Bilateral) - Katherine Londono MD PATIENT REASSESSED PRIOR TO SEDATION, WITH NO CHANGE NOTED: Yes PHYSICAL EXAM: alert, oriented x 3 and clear to auscultation bilaterally AIRWAY EVAL/ANESTHESIA PLAN: ASA II and Risks, benefits & alternatives of sedation and/or procedure discussed ADDITIONAL INFORMATION: I have explained personally all risk benefit alternative for the procedure I have explained patient risk for stroke contrast- induced nephropathy major minor bleed urgent emergent vascular surgery limb loss due to embolic phenomena. Patient has been explained risk benefit and FDA warning regarding drug-coated balloon. She understands and would like to proceed with it.
[2021-07-30] MEDS: clopidogrel 75 mg Tablet PO (13:08)
[2021-07-30] MEDS: aspirin 81 mg EC Tablet PO (13:08)
[2021-07-30] MEDS: sulfamethoxazole-trimeth DS 160-800 mg Tablet 1 TAB PO ×2 (13:10→22:40)
[2021-07-30] MEDS: HYDROcodone-acetaminophen 5-325 mg Tablet 1 TAB PO ×3 (13:12→21:14)
[2021-07-30] MEDS: pregabalin 100 mg Capsule PO ×2 (14:11→20:10)
[2021-07-30 14:24] LABS: Partial Thromboplastin Time 46.6 SECONDS (23.9-36.7)
--- NOTE | 2021-07-30 15:14 | PC.NURSE ---
Sheath removed from right groin at this time no hematoma or adverse events noted
--- NOTE | 2021-07-30 15:37 | PC.NURSE ---
spoke with Dr hua about patients metformin order instructions to hold for today
[2021-07-30] MEDS: ketorolac 30 mg/mL INJ 15 MG IVP ×2 (18:59→22:40)
[2021-07-30] MEDS: cyclobenzaprine 10 mg Tablet PO (20:10)
[2021-07-30] MEDS: temazepam 15 mg Capsule PO (21:14)
--- NOTE | 2021-07-30 22:28 | PC.NURSE ---
Dressing and incision site to right groin WNL. During bedside shift report, left groin felt slightly firmer than right groin. Doctor aware. Patient c/o pain to left leg. PRN pain medications given as needed. Patient states, is it normal to hurt this much? Assessment by myself and two other RNs WNL. No signs of bleeding or hematoma. Educated patient about re-perfusion pain post-procedure. Reinforcement needed. VSS.
[2021-07-30] MEDS: ALPRAZolam 0.5 mg Tablet 0.25 MG PO (22:40)
--- NOTE | 2021-07-30 23:36 | PC.NURSE ---
Nurse walked into room to reassess patient's pain. When first entering room, patient's facial expression appeared calm and patient was watching a video on her tablet. When patient seen nurse, patient states, I'll take whatever you can give me. Patient educated that PRN pain medications will be given when they are due. Still no signs of bleeding or hematoma. Right groin site and vital signs WNL.
[2021-07-31 00:03] VITALS: BP 105/54
--- NOTE | 2021-07-31 00:06 | PC.NURSE ---
Patient ambulated in david. Patient tolerated well. Patient states left leg still hurts, but that it is a little bit better.
[2021-07-31] MEDS: HYDROcodone-acetaminophen 5-325 mg Tablet 1 TAB PO (01:07)
--- NOTE | 2021-07-31 01:41 | PC.NURSE ---
Patient is currently resting in bed with eyes closed.
[2021-07-31 03:47] VITALS: BP 120/56; PULSE 53; RESP 15; TEMP 36.6
[2021-07-31] MEDS: ketorolac 30 mg/mL INJ 15 MG IVP (03:47)
--- NOTE | 2021-07-31 03:48 | PC.NURSE ---
Patient falling asleep while BUILDING INSPECTOR is taking vitals. When patient awoken, patient states, my pain is an 8, can I have anything?
[2021-07-31] MEDS: cyclobenzaprine 10 mg Tablet PO (03:53)
[2021-07-31 04:00] LABS: Basophils % 0.8 %; Eosinophils # 0.3 10^3/uL (0.0-0.8); Eosinophils % 8.9 %; Hematocrit 37.2 % (37.0-47.0); Lymphocytes # 0.8 10^3/uL (0.8-4.8); Lymphocytes % 21.5 %; Mean Corpuscular HGB Conc 32.3 g/dL (30.0-36.0); Mean Corpuscular Hemoglobin 30.7 pg (28.0-34.0); Mean Corpuscular Volume 95.1 fl (81-99); Mean Platelet Volume 9.8 fL (7.4-10.4); Monocytes # 0.5 10^3/uL (0.2-0.9); Neutrophils # 2.15 10^3/uL (1.8-7.7); Neutrophils % 56.3 %; Nucleated Red Blood Cells % 0 %; Platelet Count 207 10^3/cmm (130-400); Red Blood Count 3.91 10^6/uL (4.1-5.3); Red Cell Distribution Width 12.8 % (12.1-15.1); White Blood Count 3.8 10^3/uL (4.0-10.0)
--- NOTE | 2021-07-31 04:03 | PC.NURSE ---
Patient is currently resting in bed with eyes closed.
[2021-07-31 04:25] LABS: Anion Gap 13.3 (5-19); Blood Urea Nitrogen 18 mg/dL (6-20); Calcium 8.5 mg/dL (8.5-10.5); Carbon Dioxide 25 mmol/L (22-29); Chloride 102 mmol/L (98-107); Glomerular Filtration Rate 104.2 mL/min (90-130); Glucose 139 mg/dL (65-115); Osmolality Calculated 286 mOsm/kg (285-295); Potassium 4.3 mmol/L (3.5-5.1); Sodium 136 mmol/L (136-145)
[2021-07-31 04:45] VITALS: PULSE 51
[2021-07-31 08:00] VITALS: BP 98/75; PULSE 57; RESP 16; TEMP 36.6; O2SAT 92
--- NOTE | 2021-07-31 08:33 | P.HP_ITS ---
Same Day Surgery H&P Indication for Procedure/HPI DATE OF PROCEDURE: July 31, 2021 CHIEF COMPLAINT/INDICATIONFOR SURGICAL PROCEDURE: Recall limb ischemia with nonhealing left heel ulcer PREOP DIAGNOSIS: Critical limb ischemia pain at rest of left leg and foot PLANNED PROCEDRUE: Operation Date: 07/30/21 10:00 Proposed Procedures p Peripheral Diagnostic(Bilateral) - Katherine Londono MD For critical limb ischemia worsening of pain aches cramps and now pain at rest with nonhealing left heel ulcer she is here for peripheral angiogram. Patient has been explained all risk benefit and already for the procedure she has been explained risk and FDA warning regarding drug coated balloon with increased mortality in certain subjects group. Patient agrees to and would like to proceed with it. Medications/Allergies* Allergies/Adverse Reactions Allergy/AdvReac Type Severity Reaction Status Date / Time No Known Allergies Allergy Verified 07/23/21 10:26 Current Medications: Generic Name Dose Route Start Last Admin Trade Name Freq PRN Reason Stop Dose Admin Hydrocodone Bitart/Acetaminophen 1 tab 07/30/21 12:14 07/31/21 01:07 Hydrocodone-Acetaminophen 5-325 Mg Tablet PO 1 tab Q4H PRN Administration PAIN Alprazolam 0.25 mg 07/30/21 12:14 07/30/21 22:40 Alprazolam 0.5 Mg Tablet PO 0.25 mg TID PRN Administration ANXIETY Aspirin 81 mg 07/30/21 12:30 07/30/21 13:08 Aspirin 81 Mg Ec Tablet PO 81 mg DAILY DUONG Administration Clopidogrel Bisulfate 75 mg 07/30/21 12:20 07/30/21 13:08 Clopidogrel 75 Mg Tablet PO 75 mg DAILY DUONG Administration Cyclobenzaprine HCl 10 mg 07/30/21 12:21 07/31/21 03:53 Cyclobenzaprine 10 Mg Tablet PO 10 mg TID PRN Administration muscle spasm Ketorolac Tromethamine 15 mg 07/30/21 18:42 07/31/21 03:47 Ketorolac 30 Mg/Ml Inj IVP 08/04/21 18:41 15 mg Q4H PRN Administration MODERATE PAIN Metformin HCl 500 mg 07/30/21 18:00 07/30/21 20:34 Metformin 500 Mg Tablet PO Not Given BID DUONG Nicotine 1 patch 07/30/21 12:30 07/30/21 19:23 Nicotine 21 Mg Patch TRANSDERMA Not Given DAILY DUONG Pregabalin 100 mg 07/30/21 15:00 07/30/21 20:10 Pregabalin 100 Mg Capsule PO 100 mg TID DUONG Administration Temazepam 15 mg 07/30/21 12:14 07/30/21 21:14 Temazepam 15 Mg Capsule PO 15 mg BEDTIME PRN Administration INSOMNIA Trimethoprim/Sulfamethoxazole 1 tab 07/30/21 13:00 07/30/21 22:40 Sulfamethoxazole-Trimeth Ds 160-800 Mg Tablet PO 1 tab Q12H DUONG Administration Protocol Pertinent History/Comorbid Conditions* Medical History (Updated 07/27/21 @ 20:31 by Katherine Londono MD) Abscess of right groin Claudication of both lower extremities Enlarged uterus Hidradenitis suppurativa History of MRSA infection Hyponatremia No pertinent past medical history Surgical History (Updated 11/28/20 @ 14:12 by Yady Farmer DO) H/O tubal ligation History of appendectomy Family History (Updated 02/16/21 @ 13:46 by Jaz Groves LPN) Diabetes Mother Brother Hyperlipidemia Mother Father Hypertension Mother Father Thyroid disease Mother Stroke Mother Denies family history of Ovarian cyst Heart disease Chronic kidney disease (CKD) Cancer Social History Smoking and tobacco status: current every day smoker Second hand smoke exposure: No Alcohol intake: never Desire information about alcohol rehabilitation?: No Desire information about substance/drug rehabilitation?: No Pertinent Exam Findings alert, oriented x 3, clear to auscultation bilaterally and regular rate & rhythm Recommendations Surgery/Procedure today Coding Level of Care Code Acute Tobacco Wetter for Jeffrey Weaver
[2021-07-31] MEDS: clopidogrel 75 mg Tablet PO (09:08)
[2021-07-31] MEDS: atorvastatin 40 mg Tablet 20 MG PO (09:08)
[2021-07-31] MEDS: sitagliptin 100 mg Tablet PO (09:09)
[2021-07-31] MEDS: aspirin 81 mg EC Tablet PO (09:09)
[2021-07-31] MEDS: pregabalin 100 mg Capsule PO (09:09)
[2021-07-31] MEDS: sulfamethoxazole-trimeth DS 160-800 mg Tablet 1 TAB PO (09:13)
--- NOTE | 2021-07-31 09:54 | PC.CHAP ---
Pastoral Care Encounter/Spiritual Assessment Type of Contact [] Declined public utilities sales representative visit [] Patient/Family/Request visit [] Outpatient visit [] Follow-up visit [] Physician referral [] Code/Alert [x] Routine visit [] Staff referral [] Actively dying [] Patient sleeping [] Family support [] [] Out of room [] Palliative care [] [x] Receiving care in room [] Pre-surgical visit [] Trauma [] Long length of stay [] ICU visit [] Other: Relational/Emotional Strength [] Patient feels connected with others/family/visitors/staff [] Distress [] Loneliness/isolation [] Abandonment Spirituality of Patient [] Person of Lucia [] Attends Faith of their Lucia [] Believes in Prayer [] Reads Bible or Lutheran materials [] There are Spiritual issues to be addressed Talent Development Director Interventions [] Prayer [] Active listening [] Non-anxious presence [] Spiritual/emotional support [] Crisis/trauma care [] Spiritual counseling [] Bereavement support [] Provided bereavement packet [] Provided Bible/devotional materials [] Provided toy/stuffed animal, coloring book to patient or family member [] Provided Communion [] Anointing/Gotham [] Salvation [] Completed spiritual assessment [] Other: Impact on Illness or Injury [] Angry [] Fearful [] Anxious [] Often cries [] Exhaustion [] Unable to work [] Unable to attend holiness [] Unable to walk/stand [] Unable to read [] Unable to drive [] Unable to eat/drink [] Unable to sleep [] Unable to be with family [] Patient intubated [] Other: Summary Time spent with patient Pastoral Care Encounter/Spiritual Assessment Type of Contact [] Declined public utilities sales representative visit [] Patient/Family/Request visit [] Outpatient visit [] Follow-up visit [] Physician referral [] Code/Alert [] Routine visit [] Staff referral [] Actively dying [] Patient sleeping [] Family support [] [] Out of room [] Palliative care [] [] Receiving care in room [] Pre-surgical visit [] Trauma [] Long length of stay [] ICU visit [] Other: Relational/Emotional Strength [] Patient feels connected with others/family/visitors/staff [] Distress [] Loneliness/isolation [] Abandonment Spirituality of Patient [] Person of Lucia [] Attends Faith of their Lucia [] Believes in Prayer [] Reads Bible or Lutheran materials [] There are Spiritual issues to be addressed Talent Development Director Interventions [x] Prayer [] Active listening [] Non-anxious presence [] Spiritual/emotional support [] Crisis/trauma care [] Spiritual counseling [] Bereavement support [] Provided bereavement packet [] Provided Bible/devotional materials [] Provided toy/stuffed animal, coloring book to patient or family member [] Provided Communion [] Anointing/Gotham [] Salvation [x] Completed spiritual assessment [] Other: Impact on Illness or Injury [] Angry [] Fearful [] Anxious [] Often cries [] Exhaustion [] Unable to work [] Unable to attend holiness [] Unable to walk/stand [] Unable to read [] Unable to drive [] Unable to eat/drink [] Unable to sleep [] Unable to be with family [] Patient intubated [] Other: Summary Time spent with patient
[2021-07-31 11:30] VITALS: BP 98/75; PULSE 57; RESP 16; TEMP 36.6; O2SAT 92
== END 2021-07-31 11:30 | disposition home or self-care (01) ==
LOC: CCL 10:11 → CSU 12:46
PROVIDERS: PCP Family Medicine; Visit Provider Internal Medicine Cardiovascular Disease
DX: I70.223 Atherosclerosis of native arteries of extremities with rest pain, bilateral legs (principal); F17.200 Nicotine dependence, unspecified, uncomplicated; L98.499 Non-pressure chronic ulcer of skin of other sites with unspecified severity
CPT/HCPCS: 36415; 37224; 37225; 75625; 75716; 80048; 85025; 85730; C1724; C1725; C1769; C1887; C1894; C2623; J1644; J1885; J2250; J3010; J3490; J7030; Q0163; Q9967

== ENCOUNTER → 2021-08-06 09:42 | Outpatient (BNVA) | payer MEDICAID, SELFPAY | PROVIDERS: PCP Family Medicine; Referring Provider Registered Nurse Neonatal Intensive Care; Visit Provider Podiatrist Foot & Ankle Surgery | DX: M79.672 Pain in left foot (principal) | CPT/HCPCS: 73630 ==

== ENCOUNTER → 2021-08-07 10:48 | Outpatient (BNVA) | payer MEDICAID, SELFPAY | PROVIDERS: PCP Family Medicine; Visit Provider Nurse Practitioner Family | DX: I73.9 Peripheral vascular disease, unspecified (principal) | CPT/HCPCS: 80048 ==

== ENCOUNTER → 2021-11-05 15:59 | Outpatient (BNVA) | payer MEDICAID, SELFPAY | PROVIDERS: PCP Family Medicine; Visit Provider Podiatrist Foot & Ankle Surgery | DX: M79.671 Pain in right foot (principal); E11.21 Type 2 diabetes mellitus with diabetic nephropathy; M20.41 Other hammer toe(s) (acquired), right foot; M20.42 Other hammer toe(s) (acquired), left foot; M21.621 Bunionette of right foot; M21.622 Bunionette of left foot; L03.032 Cellulitis of left toe | CPT/HCPCS: 73630 ==

== ENCOUNTER → 2021-11-16 15:36 | Outpatient (BNVA) | payer MEDICAID, SELFPAY | PROVIDERS: PCP Family Medicine; Visit Provider Podiatrist Foot & Ankle Surgery | DX: M86.9 Osteomyelitis, unspecified (principal); Z79.899 Other long term (current) drug therapy | CPT/HCPCS: 36415; 80048; 85025; 85651; 86140 ==

== ENCOUNTER → 2021-11-30 14:52 | Outpatient (BNVA) | payer MEDICAID, SELFPAY | PROVIDERS: PCP Family Medicine; Visit Provider Podiatrist Foot & Ankle Surgery | DX: M79.672 Pain in left foot (principal); M79.89 Other specified soft tissue disorders; M77.32 Calcaneal spur, left foot; M19.072 Primary osteoarthritis, left ankle and foot | CPT/HCPCS: 73630 ==

== ENCOUNTER → 2021-12-03 10:34 | Outpatient (BNVA) | payer MEDICAID, SELFPAY | PROVIDERS: PCP Family Medicine; Visit Provider Family Medicine | DX: E11.42 Type 2 diabetes mellitus with diabetic polyneuropathy (principal); E11.621 Type 2 diabetes mellitus with foot ulcer; L97.429 Non-pressure chronic ulcer of left heel and midfoot with unspecified severity; I73.9 Peripheral vascular disease, unspecified; M86.9 Osteomyelitis, unspecified | CPT/HCPCS: 80053; 83036; 85025; 85651; 86140 ==

== ENCOUNTER → 2021-12-15 13:10 | Outpatient (BNVA) | payer MEDICAID, SELFPAY | PROVIDERS: PCP Family Medicine; Visit Provider Podiatrist Foot & Ankle Surgery | DX: M79.672 Pain in left foot (principal); M86.9 Osteomyelitis, unspecified | CPT/HCPCS: 73630 ==

== ENCOUNTER → 2022-01-18 15:20 | Outpatient (BNVA) | payer MEDICAID, SELFPAY | PROVIDERS: PCP Family Medicine; Visit Provider Nurse Practitioner Family | DX: I73.9 Peripheral vascular disease, unspecified (principal); F17.210 Nicotine dependence, cigarettes, uncomplicated; Z79.82 Long term (current) use of aspirin | CPT/HCPCS: 99214 ==

== ENCOUNTER → 2022-03-09 11:35 | Outpatient (BNVA) | payer MEDICAID, SELFPAY | PROVIDERS: PCP Family Medicine; Visit Provider Family Medicine | DX: E11.42 Type 2 diabetes mellitus with diabetic polyneuropathy (principal); E11.621 Type 2 diabetes mellitus with foot ulcer; L97.429 Non-pressure chronic ulcer of left heel and midfoot with unspecified severity; I73.9 Peripheral vascular disease, unspecified; L03.032 Cellulitis of left toe; F17.219 Nicotine dependence, cigarettes, with unspecified nicotine-induced disorders | CPT/HCPCS: 80053; 83036 ==

== ENCOUNTER → 2022-03-15 14:32 | Outpatient (BNVA) | payer MEDICAID, SELFPAY | PROVIDERS: PCP Family Medicine; Visit Provider Internal Medicine | DX: I73.9 Peripheral vascular disease, unspecified (principal); E11.42 Type 2 diabetes mellitus with diabetic polyneuropathy; F17.200 Nicotine dependence, unspecified, uncomplicated; Z79.84 Long term (current) use of oral hypoglycemic drugs | CPT/HCPCS: 99213; 99214 ==

== ENCOUNTER → 2022-03-17 09:06 | Outpatient (BNVA) | payer MEDICAID, SELFPAY | PROVIDERS: PCP Family Medicine; Visit Provider Podiatrist Foot & Ankle Surgery | DX: M86.9 Osteomyelitis, unspecified (principal); I73.9 Peripheral vascular disease, unspecified; M79.672 Pain in left foot | CPT/HCPCS: 11730; 73630; 99214; 99215; A6219; A6446 ==

== ENCOUNTER 2022-04-08 07:20 | Outpatient (CLI) | payer MEDICAID, SELFPAY ==
--- NOTE | 2022-04-08 08:00 | MR_ITS ---
WS: [id number] INDICATION: Osteomyelitis RIGHT great toe TECHNIQUE: MRI of the LEFT foot without and with gadolinium enhancement. Coronal PD, T2, axial T2, ax ial PD, axial T1, sagittal T1, sagittal STIR, post gadolinium images obtained with fat saturation sheila hnique. FINDINGS: Marker overlying the distal great toe. Replacement of the normal T1 fatty bone marrow signa l involving the distal phalanx 1st toe. Associated T2 hyperintensity with enhancement. Findings are c ompatible with osteomyelitis. Small amount of fluid in the DIP joint. Associated soft tissue edema ov erlying the distal 1st digit soft tissues. Normal bone marrow signal in the calcaneus and talus. Normal navicular. Metatarsals appear normal. Di stal Achilles appears normal. No other significant findings. MR/MR foot LT wo/w con [id number] IMPRESSION: 1. Replacement of the normal bone marrow signal with enhancement involving the distal phalanx 1st toe compatible with osteomyelitis. 2. No evidence of drainable abscess or fluid collection. 3. No other acute findings.
[2022-04-08] MEDS: gadobenate dimeglumine 20 mL vial IV (09:31)
== END 2022-04-08 07:21 | disposition home or self-care (01) ==
PROVIDERS: PCP Family Medicine; Visit Provider Podiatrist Foot & Ankle Surgery
DX: M86.8X7 Other osteomyelitis, ankle and foot (principal); M86.9 Osteomyelitis, unspecified
CPT/HCPCS: 73720; 99214

== ENCOUNTER → 2022-04-09 16:41 | Outpatient (BNVA) | payer MEDICAID, SELFPAY | PROVIDERS: PCP Family Medicine; Visit Provider Podiatrist Foot & Ankle Surgery | DX: M86.9 Osteomyelitis, unspecified (principal); I73.9 Peripheral vascular disease, unspecified | CPT/HCPCS: 85025; 85651; 86140 ==

== ENCOUNTER 2022-04-16 15:22 | Outpatient (CLI) | payer MEDICAID, SELFPAY ==
[2022-04-16 16:49] LABS: Erythrocyte Sedimentation Rate 7 mm/hr (0-15)
[2022-04-16 16:51] LABS: Basophils # 0.1 10^3/uL (0.0-0.1); Basophils % 0.9 %; Eosinophils # 0.2 10^3/uL (0.0-0.8); Eosinophils % 2.9 %; Hematocrit 42.5 % (37.0-47.0); Hemoglobin 14.9 g/dL (11.5-15.3); Lymphocytes # 2.4 10^3/uL (0.8-4.8); Lymphocytes % 33.7 %; Mean Corpuscular HGB Conc 35.1 g/dL (30.0-36.0); Mean Corpuscular Volume 91.4 fl (81-99); Mean Platelet Volume 10.3 fL (7.4-10.4); Monocytes # 0.6 10^3/uL (0.2-0.9); Neutrophils # 3.81 10^3/uL (1.8-7.7); Neutrophils % 54.4 %; Nucleated Red Blood Cells % 0 %; Platelet Count 260 10^3/cmm (130-400); Red Blood Count 4.65 10^6/uL (4.1-5.3); Red Cell Distribution Width 12.4 % (12.1-15.1)
== END 2022-04-16 15:23 | disposition home or self-care (01) ==
LOC: LAB 15:24
PROVIDERS: PCP Family Medicine; Visit Provider Podiatrist Foot & Ankle Surgery
DX: M86.9 Osteomyelitis, unspecified (principal); I73.9 Peripheral vascular disease, unspecified
CPT/HCPCS: 36415; 85025; 85651; 86140

== ENCOUNTER 2022-04-22 14:51 | Outpatient (CLI) | payer MEDICAID, SELFPAY ==
--- NOTE | 2022-04-22 15:00 | CT_ITS ---
WS: [id number] CT ANGIOGRAPHY OF THE ABDOMINAL AORTA WITH RUNOFF TO THE ANKLES HISTORY: left leg claudication TECHNIQUE: Arterial injection is performed during imaging to evaluate the aorta and runoff vessels to the ankles. MIP and volume rendering imaging has also been performed. All images are reviewed. All C T scans at [facility] use at least one of these dose optimization techniques: automated exposu re control; mA and/or kV adjustment per patient size (includes targeted exams where dose is matched t o clinical indication); or iterative reconstruction. Contrast: Omnipaque 350; 95 mL IV. DLP: 1775.80 mGy.cm COMPARISON: 12/30/2020 Lung bases are clear. Mild enlargement of the LEFT heart chambers. Moderate hiatal hernia. Abdominal aorta: Mild atherosclerotic plaque and intimal thickening throughout the aorta. Calcific bu rden increases below the renal arteries. Intimal thickening increases towards the bifurcation. No sig nificant stenosis involving the celiac axis or SMA. Renal arteries are patent. RIGHT lower extremity arterial system: High-grade stenosis at the origin of the RIGHT common iliac ar andreina. Stenosis due to combination of circumferential intimal thickening and scattered plaque. Intimal thickening continues throughout the common iliac artery with mild diffuse narrowing. Internal and ex ternal iliac arteries are patent although very small caliber. Small caliber femoral artery. Diffuse v heri small caliber SFA to the popliteal artery although it is patent. There are a few attempts at radha nstitution and collateralization. The diameter has decreased since the prior study. Proximally there is near-complete occlusion. Popliteal artery is intact. Anterior tibial artery is the dominant runoff to the ankle. Peroneal artery is present but small caliber. Limited posterior tibial artery opacific ation. LEFT lower extremity arterial system: Small caliber common iliac artery. Diffuse circumferential inti mal thickening. Internal and external iliac arteries are patent although the internal iliac artery be comes occluded. Small caliber common femoral artery. Small caliber deep profunda. LEFT SFA is occlude d proximally. Attempts at reconstitution at the popliteal artery but this is very limited. Anterior t ibial artery and the peroneal artery are small caliber but patent. Posterior tibial artery is nonvisu alized. Similar to the prior study. Hepatic steatosis and hepatomegaly. Negative spleen, gallbladder and pancreas. No adrenal mass. No re nal atrophy. Marked constipation with no obstruction. No ascites or adenopathy. Ventral abdominal wal l injection sites with induration. There is a very large pelvic mass measuring 11.5 x 11.3 x 12.2 cm consistent with a fibroid uterus. N o change in size since 12/30/2021. Neither ovary is enlarged. CT/CT angio abd aorta runof [id number] IMPRESSION: 1. Mild stenosis involving the distal abdominal aortic with no aneurysm. 2. High-grade stenosis origin of the RIGHT common iliac artery proximally 70%. 3. Diffuse small caliber lumen RIGHT SFA to the popliteal artery. SFA is paten t but small caliber. 4. Now complete occlusion proximal LEFT SFA. New since 12/30/2020. 5. Small caliber LEFT common iliac artery. 6. Bilateral posterior tibial arteries are not visualized in their entirety an d very small caliber. 7. Runoff to the ankle is via the anterior tibial and peroneal arteries. 8. Very large central pelvic mass consistent with fibroid uterus is unchanged.
[2022-04-22] MEDS: iohexol 350 mg/mL 100 mL Btl IV (15:30)
== END 2022-04-22 14:52 | disposition home or self-care (01) ==
LOC: RAD 14:52
PROVIDERS: PCP Family Medicine; Visit Provider Nurse Practitioner Family
DX: I73.9 Peripheral vascular disease, unspecified (principal); I35.0 Nonrheumatic aortic (valve) stenosis; I70.8 Atherosclerosis of other arteries
CPT/HCPCS: 75635

== ENCOUNTER 2022-04-26 14:38 | Outpatient (CLI) | payer MEDICAID, SELFPAY ==
--- NOTE | 2022-04-26 14:50 | MM_ITS ---
WS: [id number] BILATERAL 3D TOMOSYNTHESIS DIGITAL SCREENING MAMMOGRAPHY WITH CAD CLINICAL INFORMATION: SCREEN HISTORY: Screening mammogram. No current complaints. COMPARISON: None. TECHNIQUE: Bilateral CC and MLO views. FINDINGS: The breasts are composed of heterogeneous fibroglandular density tissue, which can limit the detectio n of small underlying mass lesions. Punctate and lucent centered calcifications. Coarse calcification s LEFT breast. Vascular calcification. Dense breast tissue upper outer breasts bilaterally. No suspic ious mass, asymmetry, calcifications, or architectural distortion. No evidence of malignancy. MM/[place] [id number] IMPRESSION: BI-RADS: 2-Benign FOLLOW UP: 1 Year Follow-up Recommend return to annual screening mammography.
== END 2022-04-26 14:39 | disposition home or self-care (01) ==
LOC: RAD 14:39
PROVIDERS: PCP Family Medicine; Visit Provider Family Medicine
DX: Z12.31 Encounter for screening mammogram for malignant neoplasm of breast (principal)
CPT/HCPCS: 77063; 77067

== ENCOUNTER → 2022-04-29 11:04 | Outpatient (BNVA) | payer MEDICAID, SELFPAY | PROVIDERS: PCP Family Medicine; Visit Provider Student in an Organized Health Care Education/Training Program | DX: M86.672 Other chronic osteomyelitis, left ankle and foot; M86.9 Osteomyelitis, unspecified | CPT/HCPCS: 36415; 73630; 85651; 86140; 99204; 99213; 99214 ==

== ENCOUNTER → 2022-05-19 15:05 | Outpatient (BNVA) | payer MEDICAID, SELFPAY | PROVIDERS: PCP Family Medicine; Visit Provider Internal Medicine | DX: I73.9 Peripheral vascular disease, unspecified (principal); E11.42 Type 2 diabetes mellitus with diabetic polyneuropathy; Z87.891 Personal history of nicotine dependence; Z79.84 Long term (current) use of oral hypoglycemic drugs | CPT/HCPCS: 99214 ==

== ENCOUNTER → 2022-06-03 14:42 | Outpatient (BNVA) | payer MEDICAID, SELFPAY | PROVIDERS: PCP Family Medicine; Visit Provider Podiatrist Foot & Ankle Surgery | DX: I73.9 Peripheral vascular disease, unspecified (principal); E11.42 Type 2 diabetes mellitus with diabetic polyneuropathy; Z79.84 Long term (current) use of oral hypoglycemic drugs; M86.9 Osteomyelitis, unspecified | CPT/HCPCS: 73630; 99213; 99214 ==

== ENCOUNTER → 2022-07-12 15:05 | Outpatient (BNVA) | payer MEDICAID, SELFPAY | PROVIDERS: PCP Family Medicine; Visit Provider Family Medicine | DX: R53.83 Other fatigue (principal); M86.9 Osteomyelitis, unspecified; E11.42 Type 2 diabetes mellitus with diabetic polyneuropathy; I73.9 Peripheral vascular disease, unspecified | CPT/HCPCS: 80053; 80061; 83036; 83721; 84443; 85025; 85651; 86140 ==

== ENCOUNTER → 2022-07-15 15:18 | Outpatient (BNVA) | payer MEDICAID, SELFPAY | PROVIDERS: PCP Family Medicine; Visit Provider Podiatrist Foot & Ankle Surgery | DX: I73.9 Peripheral vascular disease, unspecified (principal); Z87.891 Personal history of nicotine dependence; E11.42 Type 2 diabetes mellitus with diabetic polyneuropathy; Z79.84 Long term (current) use of oral hypoglycemic drugs; M86.9 Osteomyelitis, unspecified | CPT/HCPCS: 73630; 99214 ==

== ENCOUNTER → 2022-08-10 15:37 | Outpatient (BNVA) | payer MEDICAID, SELFPAY | PROVIDERS: PCP Family Medicine; Visit Provider Podiatrist Foot & Ankle Surgery | DX: I73.9 Peripheral vascular disease, unspecified (principal); E11.8 Type 2 diabetes mellitus with unspecified complications; Z79.84 Long term (current) use of oral hypoglycemic drugs; E11.42 Type 2 diabetes mellitus with diabetic polyneuropathy; M86.9 Osteomyelitis, unspecified | CPT/HCPCS: 73630; 99213 ==

== ENCOUNTER 2022-10-11 10:24 | Outpatient (CLI) | payer MEDICAID, SELFPAY ==
--- NOTE | 2022-10-11 10:37 | XR_ITS ---
WS: [id number] Lumbar spine, 3 views, 10/11/2022 Clinical Data: acute low back pain Comparison: Lumbar spine, 07/14/2021 Findings: No compression fractures or subluxation is seen. No disc space narrowing is seen. The lateral view of the lumbar spine does not include the superior aspect of L3 or L1 or L2. There is osteoarthritic spu rring of L4 and L5. The transverse processes are normal. The right SI joint is normal and there is minimal sclerosis of the inferior aspect of the left SI edgar nt. XR/XR lumbar spine 2-3V* [id number] Impression: 1. 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 2. 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 3. Incomplete view of the lateral aspect of lumbar spine.
== END 2022-10-11 10:25 | disposition home or self-care (01) ==
LOC: RAD 10:28
PROVIDERS: PCP Family Medicine; Visit Provider Family Medicine
DX: M47.816 Spondylosis without myelopathy or radiculopathy, lumbar region (principal)
CPT/HCPCS: 72100; 80053; 80061; 83036; 83721; 85025; 85651; 86140

== ENCOUNTER → 2022-10-18 15:19 | Outpatient (BNVA) | payer MEDICAID, SELFPAY | PROVIDERS: PCP Family Medicine; Visit Provider Podiatrist Foot & Ankle Surgery | DX: M86.672 Other chronic osteomyelitis, left ankle and foot (principal); L60.0 Ingrowing nail; I73.9 Peripheral vascular disease, unspecified; E11.42 Type 2 diabetes mellitus with diabetic polyneuropathy; L60.3 Nail dystrophy | CPT/HCPCS: 11750; 73630; 99214 ==

== ENCOUNTER → 2022-11-04 11:36 | Outpatient (BNVA) | payer MEDICAID, SELFPAY | PROVIDERS: PCP Family Medicine; Visit Provider Podiatrist Foot & Ankle Surgery | DX: L60.0 Ingrowing nail (principal); I73.9 Peripheral vascular disease, unspecified; M86.9 Osteomyelitis, unspecified; E11.42 Type 2 diabetes mellitus with diabetic polyneuropathy; L60.3 Nail dystrophy; Z79.84 Long term (current) use of oral hypoglycemic drugs | CPT/HCPCS: 99213 ==

== ENCOUNTER → 2022-11-18 15:54 | Outpatient (BNVA) | payer MEDICAID, SELFPAY | PROVIDERS: PCP Family Medicine; Visit Provider Internal Medicine | DX: I73.9 Peripheral vascular disease, unspecified (principal); E11.42 Type 2 diabetes mellitus with diabetic polyneuropathy; Z79.84 Long term (current) use of oral hypoglycemic drugs; Z79.82 Long term (current) use of aspirin; F17.200 Nicotine dependence, unspecified, uncomplicated | CPT/HCPCS: 99214 ==

== ENCOUNTER 2023-01-18 12:48 | Inpatient (IN) | payer MEDICAID, SELFPAY ==
--- NOTE | 2023-01-14 11:39 | ECG_ITS ---
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 Measurements Intervals [place] Rate: 62 P: 18 PA: 168 QRS: -12 QRSD: 94 T: 18 QT: 387 QTc: 395 Interpretive Statements SINUS RHYTHM MODERATE VOLTAGE CRITERIA FOR LVH, CONSIDER NORMAL VARIANT [MEETS CRITERIA IN ONE OF: R(aVL), S(V1), R(V5), R(V5/V6)+S(V1)] POSSIBLE ANTERIOR MYOCARDIAL INFARCTION , PROBABLY OLD [30 ms Q WAVE IN V3/V4, OR R < 0.2 mV IN V4] No previous ECG available for comparison Electronically Signed On 01-15-2023 10:05:49 CDT by Darin Smalls M.D. [id number]
--- NOTE | 2023-01-14 11:47 | P.ANESASSM_ITS ---
Pre-Anesthetic Assessment Height/Weight: Height 1.68 m Weight 77.564 kg Preop Diagnosis: Critical limb ischemia pain at rest of left leg and foot Operation Date: 01/18/23 08:20 Proposed Procedures p Total abdominal hysterectomy, bilateral salpingo-oophorectomy 88833,D25.9(Not Applicable) - Lucrecia Martines MD Familial anesthetic complications: None Social No alcohol and No tobacco former smoker Exam alert, oriented x 3, clear to auscultation bilaterally and regular rate & rhythm Airway Mallampati: Class II Dentition: full Pulmonary None reported CV/HEM Hypertension and Peripheral Vascular Disease Metabolic Diabetes Mellitus and Hyperlipidemia Anesthetic Plan ASA status: 3 Anesthesia: General Risk of > 500 ml blood loss (7ml/kg in children): No Medications/Allergies Home Medications Medication Instructions Recorded Confirmed Last Taken Type lancets 30 gauge and blood glucose #200 ea 05/21/21 01/13/23 Unknown Rx strips combo pack Custom Molded Orthotics #1 ea 08/06/21 01/13/23 Unknown Rx blood-glucose meter (OneTouch #1 ea 09/14/21 01/13/23 Unknown Rx Ultra2 Meter) aspirin 81 mg tablet,delayed 81 mg PO DAILY #90 tabs 04/29/22 01/14/23 01/13/23 Rx release (Adult Low Dose Aspirin) cilostazol 50 mg tablet 50 mg PO BID #180 tabs 10/11/22 01/14/23 01/13/23 Rx clopidogrel 75 mg tablet (Plavix) 75 mg PO DAILY #30 tabs 10/11/22 01/14/23 01/13/23 Rx liraglutide 0.6 mg/0.1 mL (18 mg/3 1.8 mg (0.3 mL) SUBCUT .once daily 10/11/22 01/14/23 01/14/23 Rx mL) subcutaneous pen injector 90 days #9 mL (Victoza 3-Justyn) metformin 500 mg tablet 500 mg PO BID #180 tabs 10/11/22 01/14/23 01/14/23 Rx blood sugar diagnostic (OneTouch #300 strips 10/15/22 01/13/23 Unknown Rx Ultra Test strips) lisinopril 2.5 mg tablet See Rx Instructions .Route 12/07/22 01/14/23 01/14/23 Rx .COMPLEX #90 tabs pregabalin 100 mg capsule 100 mg PO TID #90 caps 12/07/22 01/14/23 01/14/23 Rx Allergies Allergy/AdvReac Type Severity Reaction Status Date / Time No Known Allergies Allergy Verified 01/14/23 11:11 [facility] Anesthesia Medical History Abscess of right groin Claudication of both lower extremities Enlarged uterus Hidradenitis suppurativa History of MRSA infection Hyponatremia No pertinent past medical history Surgical History H/O tubal ligation History of appendectomy Family History Mother Diabetes Stroke Hypertension Hyperlipidemia Thyroid disease Brother Diabetes Father Hypertension Hyperlipidemia Denies family history of Ovarian cyst Heart disease Chronic kidney disease (CKD) Cancer Social History Substance/Drug Use: never Data Anesthesia Cardiac Studies: Sestamibi Stress Test (Cardiology) 02/12
[2023-01-14 12:01] LABS: Basophils # 0.1 10^3/uL (0.0-0.1); Eosinophils # 0.3 10^3/uL (0.0-0.8); Eosinophils % 4.4 %; Hematocrit 41.3 % (37.0-47.0); Hemoglobin 13.8 g/dL (11.5-15.3); Lymphocytes # 2.8 10^3/uL (0.8-4.8); Lymphocytes % 47.5 %; Mean Corpuscular HGB Conc 33.4 g/dL (30.0-36.0); Mean Corpuscular Hemoglobin 31.4 pg (28.0-34.0); Mean Corpuscular Volume 94.1 fl (81-99); Mean Platelet Volume 9.4 fL (7.4-10.4); Monocytes # 0.4 10^3/uL (0.2-0.9); Monocytes % 6.8 %; Neutrophils # 2.37 10^3/uL (1.8-7.7); Neutrophils % 40.1 %; Nucleated Red Blood Cells % 0 %; Platelet Count 253 10^3/cmm (130-400); Red Blood Count 4.39 10^6/uL (4.1-5.3); Red Cell Distribution Width 13.4 % (12.1-15.1); White Blood Count 5.9 10^3/uL (4.0-10.0)
[2023-01-14 12:19] LABS: Anion Gap 16.6 (5-19); Blood Urea Nitrogen 14 mg/dL (6-20); Calcium 9.6 mg/dL (8.5-10.5); Carbon Dioxide 25 mmol/L (22-29); Chloride 104 mmol/L (98-107); Glomerular Filtration Rate 165.7 mL/min (90-130); Glucose 140 mg/dL (65-115); Osmolality Calculated 297 mOsm/kg (285-295); Potassium 3.6 mmol/L (3.5-5.1); Sodium 142 mmol/L (136-145)
[2023-01-18] VITALS (38 sets, daily range): BP systolic 86–179; BP diastolic 44–106; PULSE 60–99; RESP 14–18; TEMP 36.1–36.7; O2SAT 92–100
[2023-01-18] MEDS: acetaminophen 1,000 MG/100 ML PIGGYBACK 400 MG IV (07:28)
[2023-01-18] MEDS: sodium chloride 0.9% 1,000 ML 30 ML IV (07:28)
[2023-01-18] MEDS: scopolamine 1.5 Patch 1 PATCH TRANSDERMA (07:30)
[2023-01-18] MEDS: gabapentin 300 mg Capsule PO (07:32)
[2023-01-18] MEDS: phenazopyridine 100 mg Tablet 200 MG PO ×3 (07:32→21:12)
[2023-01-18] MEDS: CELEcoxib 200 mg Capsule 400 MG PO (07:32)
[2023-01-18 07:35] LABS: Glucose Point of Care 117 mg/dL (70-110)
[2023-01-18] MEDS: HYDROmorphone 1 mg/mL INJ 1 mL 0.5 MG IVP (08:09)
--- NOTE | 2023-01-18 08:13 | P.ANESUD_ITS ---
Pre-Anesthetic Update Pre-Anesthetic Assessment: Date of Surgery/Procedure: 01/18/23 Preop Cristina gnosis: uterine fibroids Proposed Procedure: Operation Date: 01/18/23 08:40 Proposed Procedures p Total abdominal hysterectomy, bilateral salpingo-oophorectomy 82100,D25.9(Not Applicable) - Lucrecia Martines MD Any changes to Pre-Anesthetic Assessment?: No Last Intake: Intake Last Liquid Date 01/17/23 Last Liquid Time 21:00 Last Solid Date 01/17/23 Last Solid Time 21:00 Vitals: Temperature 97.0 F L 01/18/23 07:17 Temperature Source Temporal Artery S can 01/18/23 07:17 Pulse Rate 71 01/18/23 07:17 Respiratory Rate 16 01/18/23 08:09 Respiratory Effort Spontaneous 01/18/23 08:09 Respiratory Depth Normal 01/18/23 08:09 Respiratory Patter n Normal 01/18/23 08:09 Blood Pressure 167/106 01/18/23 07:17 Blood Pressure Bia n 126 01/18/23 07:17 Pulse Oximetry 99 01/18/23 08:09 Oxygen Delivery Me thod Room Air 01/18/23 07:22 Exam: Pre-Anes Outpt Exam: alert, oriented x 3, clear to auscultation bilaterally and regular rate & rhythm Cardiac Studies: Sestamibi Stress Test (Cardiology) 02/12
--- NOTE | 2023-01-18 08:49 | W.PM.OPSUD ---
Surgery/Procedure H&P Update DATE OF PROCEDURE: January 18, 2023 DATE H&P PERFORMED: 01/13/23 H&P UPDATE INFORMATION: I have reviewed H&P completed within last 30 days, I have examined patient prior to procedure and Changes to prior documentation as noted here CHANGES TO PREVIOUS DOCUMENTATION: The patient has decided to have me leave her ovaries and only remove her tubes and uterus. PREOP DIAGNOSIS: uterine fibroids PLANNED PROCEDURE: Operation Date: 01/18/23 08:40 Proposed Procedures p Total abdominal hysterectomy, bilateral salpingo-oophorectomy 13699,D25.9(Not Applicable) - Lucrecia Martines MD Related Problem List Diagnoses (1) Pelvic pain: (2) Uterine fibroid: Qualifiers: Uterine leiomyoma location: unspecified location Qualified Code(s): D25.9 - Leiomyoma of uterus, unspecified
[2023-01-18] MEDS: ceFAZolin 2,000 MG in sodium chloride 0.9% (plus) 50 ML 100 MG IV ×2 (08:59→16:41)
[2023-01-18] MEDS: vasopressin 20 unit/mL INJ INJECTION (10:16)
[2023-01-18] MEDS: tranexamic acid 1,000 mg/10mL SDV 1000 MG IV (10:54)
--- NOTE | 2023-01-18 11:58 | P.OP_ITS ---
Operative Report Date of procedure: January 18, 2023 Pre-op diagnosis: Preop Diagnosis uterine fibroids Post-op diagnosis: Single large lower uterine segment fibroid Post-op findings: normal right ovary Procedure done: Total abdominal hysterectomy, left salpingoophorectomy, cystoscopy Specimens removed/disposition: uterus, left ovary and partial fallopian tube to pathology Surgeon: Lucrecia Martines Anesthesia: General Estimated blood loss (mL): 1,300 IV fluids (mL): 2,500 Urine output (mL): 225 Complications: none Findings: enlarged uterus, left sided bowel adhesions to uterus and left adnexa Condition: stable Disposition: PACU Procedure: The patient was taken to the operating room where general anesthesia was administered and found to be adequate. She was prepped and draped in the normal sterile fashion in the dorsal supine position. A duncan catheter was placed. A Pfannenstiel skin incision was made and carried down to the underlying layer of fascia. The fascia was nicked in the midline and extended laterally with the Soto scissors. The fascia was then tented up and the rectus muscles dissected off sharply. The rectus muscles were in the midline and the abdomen entered bluntly with the digit. This peritoneal incision was extended superiorly and inferiorly with good visualization of the bladder. The O'Mariusz- O'Campos retractor was placed and the bowel packed away. There were adhesions of the bowel to the left pelvic sidewall as well as the uterus and left tube and ovary. The round ligament was suture-ligated and opened. This was performed bilaterally. A window was made medial to the infundibulopelvic ligament and inferior to the fallopian tube and ovary. The infundibulopelvic ligament was clamped cut and suture-ligated bilaterally. The left infundibulopelvic ligament started bleeding. It was clamped inferior to the ovary to stop the bleeding. The left tube and ovary were removed. There was a huge pelvic mass. I was unable to get to the bladder flap. 5 ml of dilute pitressin was injected into the uterus. The uterus was incised and the large fibroid shelled out and removed. The bladder flap was then created sharply with the metzenbaum scissors and the bladder reflected caudally. The uterine arteries and cardinal ligaments were then clamped cut and suture-ligated down to the angle of the vagina. The vaginal cuff was clamped and cut and the specimen was removed. The vaginal cuff was closed with 0 Vicryl incorporating the uterosacral ligaments into the lateral aspects of the vaginal cuff. There was excellent hemostasis. The pelvis was irrigated. Due to the large fibroid, a cystoscopy was performed. The duncan catheter was removed. The cystoscope was introduced into the bladder. Bilateral spill was noted from the ureteral orifices. The duncan was replaced. The gown and gloves were changed. Attention was turned back to the abdomen. The O'Mariusz-O'Campos retractor as well as the packing was removed. The peritoneum was closed with 3-0 Monocryl in a running fashion. The fascia was closed with 0 Vicryl in a running fashion with 2 separate sutures overlapping in the midline. The skin was closed with absorbable lottie. The patient tolerated the procedure well. Sponge lap and needle counts were correct x2. She was taken to the recovery room in stable condition.
[2023-01-18 12:05] LABS: Hematocrit 27.9 % (37.0-47.0); Hemoglobin 9.4 g/dL (11.5-15.3)
--- NOTE | 2023-01-18 12:05 | PC.NURSE ---
Pt arrived to PACU, O2 at 6L/min via simple mask. Barfield in place, patent and draining. Dressing to lower abdomen C/D/I, peripad in place-no drainage noted.
--- NOTE | 2023-01-18 12:18 | PC.NURSE ---
Blood glucose 200 at 1209, Aimee CORDON at bedside, Lovely, amando. Dr Martines aware of hgb 9.4 Okay.
[2023-01-18] MEDS: fentaNYL 50 mcg/mL INJ 2mL IVP ×2 (12:28→12:45)
[2023-01-18] MEDS: HYDROcodone-acetaminophen 5-325 mg Tablet PO (13:48)
[2023-01-18] MEDS: ondansetron 2 mg/ML SDV 2 mL 4 MG IVP ×2 (13:51→17:20)
[2023-01-18] MEDS: ketorolac 30 mg/mL INJ IVP ×2 (13:51→19:23)
[2023-01-18] MEDS: dextrose 5%-lactated ringers 1,000 ML 125 ML IV ×2 (13:52→19:24)
--- NOTE | 2023-01-18 14:34 | ANE.PACU2 ---
Inpatient post-anesthesia follow up: Airway intact: Yes Vital signs: Temperature 98.1 F Pulse Rate 66 Respiratory Rate 18 Blood Pressure 152/73 Pulse Oximetry 98 Oxygen Delivery Me thod Nasal Cannula Oxygen Flow Rate 1 Fraction of Inspir ed Oxygen Hydration adequate: Yes Nausea and vomiting: No Pain level: 3 Mental status: Baseline
[2023-01-18] MEDS: pregabalin 100 mg Capsule PO ×2 (17:06→21:13)
[2023-01-18] MEDS: LORazepam 2 mg/mL INJ 1 mL 1 MG IVP (17:21)
[2023-01-18] MEDS: HYDROmorphone 1 mg/mL INJ 1 mL IVP (17:43)
[2023-01-18] MEDS: docusate sodium 100 mg Capsule PO (19:23)
--- NOTE | 2023-01-18 19:26 | PC.NURSE ---
This Nurse and Paco RN entered the pt room, pt is moving side to side in pain, pt eyes were rolling around and closing her eyes, this nurse went to the pt and asked her to rate her pain on a pain scale of 10, pt reported 10/10. this nurse took a blood pressure it was 179/78 @ 1642 this nurse tilted pt to the right, pt did not tolerate position change, removed tilt. this nurse then went to call of pain 10/10 orders were then given. see orders @ 1658. The pt was then given zofran per orders @ 1720, Ativan per orders @ 1721, pt was thrashing around complaining of pain 10/10. blood pressures as charted. pt withheld blood pressure meds before surgery today. reevaluated pain @ 1740, pt reports 10/10 pain, dilaudid given per orders. this nurse reevaluated pt 30 min after dilaudid was given pt reports pain 10/10. pt requested to sit up, this nurse and Paco RN educated pt on how to sit on the edge of the bed to help see if the pain would improve. pt then reported wanting to sit in chair, this nurse educated on to slowly stand up and pivot into the chair. pt reported she was not dizzy. pt then sat down into chair and became diaphoretic, and pale, vitals taken, see vitals charted. RN remained at the patients bedside until vitals improved to 116/66 @ 1920. this nurse called Dr. Martines @ 1950 to update on patient status, orders given to check blood sugar before bed and call with results.
[2023-01-18] MEDS: metformin 500 mg Tablet PO (19:54)
[2023-01-18] MEDS: simethicone 80 mg Chew PO (21:13)
[2023-01-18] MEDS: oxyCODONE-APAP 5-325 mg Tablet PO (21:31)
[2023-01-18 21:38] LABS: Glucose Point of Care 223 mg/dL (70-110)
[2023-01-19] VITALS (10 sets, daily range): BP systolic 91–105; BP diastolic 50–57; PULSE 77–85; RESP 16–18; TEMP 36.7–36.8; O2SAT 96–99
[2023-01-19 00:45] LABS: Glucose Point of Care 151 mg/dL (70-110)
[2023-01-19] MEDS: ceFAZolin 2,000 MG in sodium chloride 0.9% (plus) 50 ML 100 MG IV (00:54)
[2023-01-19] MEDS: sodium chloride 0.9% 500 ML IV (00:54)
[2023-01-19] MEDS: ketorolac 30 mg/mL INJ IVP ×2 (00:55→06:34)
[2023-01-19] MEDS: oxyCODONE-APAP 5-325 mg Tablet PO ×5 (04:30→22:21)
[2023-01-19] MEDS: simethicone 80 mg Chew PO (06:34)
[2023-01-19 06:35] LABS: Hematocrit 25.8 % (37.0-47.0); Hemoglobin 8.5 g/dL (11.5-15.3); Mean Corpuscular HGB Conc 32.9 g/dL (30.0-36.0); Mean Corpuscular Hemoglobin 31.3 pg (28.0-34.0); Mean Corpuscular Volume 94.9 fl (81-99); Mean Platelet Volume 9.5 fL (7.4-10.4); Platelet Count 201 10^3/cmm (130-400); Red Blood Count 2.72 10^6/uL (4.1-5.3); Red Cell Distribution Width 13.9 % (12.1-15.1); White Blood Count 9.5 10^3/uL (4.0-10.0)
[2023-01-19 09:13] LABS: Glucose Point of Care 200 mg/dL (70-110)
[2023-01-19] MEDS: cilostazol 100 mg Tablet 50 MG PO ×2 (09:51→19:17)
[2023-01-19] MEDS: docusate sodium 100 mg Capsule PO ×2 (09:52→17:38)
[2023-01-19] MEDS: phenazopyridine 100 mg Tablet 200 MG PO ×3 (09:52→21:08)
[2023-01-19] MEDS: ibuprofen 800 mg tablet PO ×2 (09:53→17:38)
[2023-01-19] MEDS: pregabalin 100 mg Capsule PO ×3 (09:53→21:08)
[2023-01-19] MEDS: metformin 500 mg Tablet PO ×2 (09:53→18:14)
[2023-01-19] MEDS: lisinopril 2.5 mg Tablet PO (09:57)
--- NOTE | 2023-01-19 14:06 | P.PN_ITS ---
Vitals/I&O/Wt Last Vital Signs Temp 98.2 F 01/19/23 11:20 Pulse 80 01/19/23 11:20 Resp 17 01/19/23 13:33 BP 100/57 01/19/23 11:20 Pulse Ox 98 01/19/23 11:20 O2 Del Method Room Air 01/19/23 11:20 O2 Flow Rate 1 01/19/23 04:35 01/18/23 01/19/23 01/19/23 22:59 06:59 14:59 Intake Total 1050 / 4300 1550 / 5850 Output Total 1350 / 3400 650 / 4050 250 / 250 Balance -300 / 900 900 / 1800 -250 / -250 Physical Exam Narrative: The patient is doing well this morning. She is ambulating, tolerating a regular diet and pain is well controlled. Const: COMMON NORMALS: no acute distress, average body habitus, patient oriented x3, no limitations, healthy appearing, alert and well nourished G ENERAL APPEARANCE: cooperative, comfortable, well kempt and well developed ORIENTATION/CONSCIOUSNESS: Yes awake, Yes oriented to person, Yes oriented to place and Yes oriented to time Resp: COMMON NORMALS: normal respiratory effort EFFORT & INSPECTION: Yes able to speak in complete sentences GI: COMMON NORMALS: Soft to palpation and non-tender PALPATION: Yes Soft to palpation Extremity: COMMON NORMALS: no calf tenderness Neuro: COMMON NORMALS: patient oriented x3 SENSORIUM/ORIENTATION: Yes alert, Yes oriented to person, Yes oriented to place and Yes oriented to time Psych: COMMON NORMALS: mental status grossly normal, Normal thought process present, cooperative, normal affect and speech normal APPEARANCE: Yes well kempt SPEECH: Yes normal speech THOUGHT PROCESS: Normal thought process present Urinary Catheter Management: Barfield: Cath Placed During This Visit: yes, but has since been removed by the nurse Reason for Continuing Indwelling Catheter: Decision to DC Catheter Urinary Catheter Date of Insertion: 01/18/23 Urinary Catheter Time of Insertion: 09:15 Date Urinary Catheter Removed: 01/19/23 Time Urinary Catheter Discontinued: 05:15 Data 01/19/23 06:20 01/14/23 11:50 Micro: Microbiology 01/18/23 09:20 Urine Culture - Preliminary Urine Catheterized Attestations Medical Necessity Statement*: The patient had a repeat . She will be inpatient for 2 midnights Coding Level of Care Code Acute Code for Chg Fwd Diagnoses
--- NOTE | 2023-01-19 14:09 | PM.PN ---
Subjective Subjective: The patient is doing well today. She had pain issues overnight, but we are getting on top of the pain, now Vitals/I&O/Wt Last Vital Signs Temp 98.2 F 01/19/23 11:20 Pulse 80 01/19/23 11:20 Resp 17 01/19/23 13:33 BP 100/57 01/19/23 11:20 Pulse Ox 98 01/19/23 11:20 O2 Del Method Room Air 01/19/23 11:20 O2 Flow Rate 1 01/19/23 04:35 01/18/23 01/19/23 01/19/23 22:59 06:59 14:59 Intake Total 1050 / 4300 1550 / 5850 Output Total 1350 / 3400 650 / 4050 250 / 250 Balance -300 / 900 900 / 1800 -250 / -250 Physical Exam Narrative: The patient is tolerating a regular diet, ambulating and pain is better controlled. Const: COMMON NORMALS: no acute distress, average body habitus, patient oriented x3, no limitations, healthy appearing, alert and well nourished GENERAL APPEARANCE: cooperative, comfortable, well kempt and well developed ORIENTATION/CONSCIOUSNESS: Yes awake, Yes oriented to person, Yes oriented to place and Yes oriented to time Resp: COMMON NORMALS: normal respiratory effort EFFORT & INSPECTION: Yes able to speak in complete sentences GI: COMMON NORMALS: Soft to palpation and non-tender PALPATION: Yes Soft to palpation Extremity: COMMON NORMALS: no calf tenderness Neuro: COMMON NORMALS: patient oriented x3 SENSORIUM/ORIENTATION: Yes alert, Yes oriented to person, Yes oriented to place and Yes oriented to time Psych: COMMON NORMALS: mental status grossly normal, Normal thought process present, cooperative, normal affect and speech normal APPEARANCE: Yes well kempt SPEECH: Yes normal speech THOUGHT PROCESS: Normal thought process present Urinary Catheter Management: Barfield: Cath Placed During This Visit: yes, but has since been removed by the nurse Reason for Continuing Indwelling Catheter: Decision to DC Catheter Urinary Catheter Date of Insertion: 01/18/23 Urinary Catheter Time of Insertion: 09:15 Date Urinary Catheter Removed: 01/19/23 Time Urinary Catheter Discontinued: 05:15 Data 01/19/23 06:20 01/14/23 11:50 Micro: Microbiology 01/18/23 09:20 Urine Culture - Preliminary Urine Catheterized Attestations Medical Necessity Statement*: The patient had an abdominal hysterectomy. She will require two midnights. Coding Level of Care Code Acute Code for Chg Fwd Diagnoses
[2023-01-19] MEDS: cetylpyridinium Lozenge 1 EACH MUCOUS MEM (21:18)
[2023-01-19 23:08] LABS: Glucose Point of Care 142 mg/dL (70-110)
[2023-01-20] MEDS: ibuprofen 800 mg tablet PO ×2 (01:43→08:38)
[2023-01-20 02:41] VITALS: RESP 16; O2SAT 98
[2023-01-20] MEDS: oxyCODONE-APAP 5-325 mg Tablet PO ×2 (02:41→06:42)
[2023-01-20 04:45] VITALS: BP 97/51; PULSE 73; RESP 16; TEMP 36.7; O2SAT 97
[2023-01-20 06:42] VITALS: RESP 15
[2023-01-20] MEDS: phenazopyridine 100 mg Tablet 200 MG PO (08:37)
[2023-01-20] MEDS: docusate sodium 100 mg Capsule PO (08:37)
[2023-01-20] MEDS: metformin 500 mg Tablet PO (08:38)
--- NOTE | 2023-01-20 08:44 | PM.DCS ---
Discharge Providers Date of Admission: 01/18/23 12:48 Date of Discharge: January 20, 2023 Attending Provider at Admission: Lucrecia Martines MD Attending Provider at Discharge: Lucrecia Martines MD Primary Care Provider: Yady Farmer DO Diagnoses at Discharge Discharge Diagnosis (1) Pelvic pain: Status: Acute (2) Uterine fibroid: Status: Acute Qualifiers: Uterine leiomyoma location: unspecified location Qualified Code(s): D25.9 - Leiomyoma of uterus, unspecified Hospital Course Hospital Course The patient was admitted for surgery. She did well postoperatively and was ready for discharge on day #2. Physical Exam Narrative: The patient is doing well today. She reports that pain is managed with pain medication Const: COMMON NORMALS: no acute distress, average body habitus, patient oriented x3, no limitations, healthy appearing, alert and well nourished GENERAL APPEARANCE: cooperative, comfortable, well kempt and well developed ORIENTATION/CONSCIOUSNESS: Yes awake, Yes oriented to person, Yes oriented to place and Yes oriented to time Resp: COMMON NORMALS: normal respiratory effort EFFORT & INSPECTION: Yes able to speak in complete sentences GI: COMMON NORMALS: Soft to palpation and non-tender PALPATION: Yes Soft to palpation Extremity: COMMON NORMALS: no calf tenderness Neuro: COMMON NORMALS: patient oriented x3 SENSORIUM/ORIENTATION: Yes alert, Yes oriented to person, Yes oriented to place and Yes oriented to time Psych: APPEARANCE: Yes well kempt Urinary Catheter Management: Barfield: Cath Placed During This Visit: yes, but has since been removed by the nurse Reason for Continuing Indwelling Catheter: Decision to DC Catheter Urinary Catheter Date of Insertion: 01/18/23 Urinary Catheter Time of Insertion: 09:15 Date Urinary Catheter Removed: 01/19/23 Time Urinary Catheter Discontinued: 05:15 Discharge Data Studies Completed and Pending Pending at discharge Category Date Time Status Urine Culture Routine Lab 01/18/23 09:20 Results Pathology: Surgical [PTH] Routine Pth 01/18/23 11:55 Received Laboratory Results WBC 9.5 10^3/uL (4.0-10.0) 01/19/23 06:20 RBC 2.72 10^6/uL (4.1-5.3) L 01/19/23 06:20 Hgb 8.5 g/dL (11.5-15.3) L 01/19/23 06:20 Hct 25.8 % (37.0-47.0) L 01/19/23 06:20 MCV 94.9 fl (81-99) 01/19/23 06:20 MCH 31.3 pg (28.0-34.0) 01/19/23 06:20 MCHC 32.9 g/dL (30.0-36.0) 01/19/23 06:20 RDW 13.9 % (12.1-15.1) 01/19/23 06:20 Plt Count 201 10^3/cmm (130-400) 01/19/23 06:20 MPV 9.5 fL (7.4-10.4) 01/19/23 06:20 Neut % (Auto) 40.1 % 01/14/23 11:50 Lymph % (Auto) 47.5 % 01/14/23 11:50 [place] % (Auto) 6.8 % 01/14/23 11:50 Eos % (Auto) 4.4 % 01/14/23 11:50 Baso % (Auto) 1.0 % 01/14/23 11:50 Neut # (Auto) 2.37 10^3/uL (1.8-7.7) 01/14/23 11:50 Lymph # (Auto) 2.8 10^3/uL (0.8-4.8) 01/14/23 11:50 [place] # (Auto) 0.4 10^3/uL (0.2-0.9) 01/14/23 11:50 Eos # (Auto) 0.3 10^3/uL (0.0-0.8) 01/14/23 11:50 Baso # (Auto) 0.1 10^3/uL (0.0-0.1) 01/14/23 11:50 Nucleated RBC % (auto) 0 % 01/14/23 11:50 Nucleated RBCs # 0.0 /100WBC 01/14/23 11:50 Sodium 142 mmol/L (136-145) 01/14/23 11:50 Potassium 3.6 mmol/L (3.5-5.1) 01/14/23 11:50 Chloride 104 mmol/L (98-107) 01/14/23 11:50 Carbon Dioxide 25 mmol/L (22-29) 01/14/23 11:50 Anion Gap 16.6 (5-19) 01/14/23 11:50 BUN 14 mg/dL (6-20) 01/14/23 11:50 Creatinine 0.4 mg/dL (0.5-0.9) L 01/14/23 11:50 GFR Calculation 165.7 mL/min (90-130) H 01/14/23 11:50 Glucose 140 mg/dL (65-115) H 01/14/23 11:50 POC Glucose 142 mg/dL (70-110) H 01/19/23 07:48 Calculated Osmolality 297 mOsm/kg (285-295) H 01/14/23 11:50 Calcium 9.6 mg/dL (8.5-10.5) 01/14/23 11:50 Blood Type A Positive 01/18/23 07:51 Rho(D) Type Positive 01/18/23 07:51 PEG Antibody Screen Negative 01/18/23 07:51 Vitals Last Vital Signs Temp 98.1 F 01/20/23 04:45 Pulse 73 01/20/23 04:45 Resp 15 01/20/23 06:42 BP 97/51 01/20/23 04:45 Pulse Ox 97 01/20/23 04:45 O2 Del Method Room Air 01/20/23 04:45 O2 Flow Rate 1 01/19/23 04:35 Discharge Plan Discharge Patient Disposition: Home Condition: Stable Prescriptions: New ibuprofen 800 mg Tablet 800 mg PO Q8H Qty: 30 0RF oxycodone-acetaminophen 5-325 mg Tablet 1 tab PO Q4H PRN (Reason: Moderate To Severe Pain) Qty: 40 0RF docusate sodium 100 mg Capsule 100 mg PO BID Qty: 60 0RF Continued (DME) lancets-blood glucose strips 30 gauge combo pack See Rx Instructions .ROUTE .MEDSUPPLY Qty: 200 3RF Rx Instructions: As directed ([facility]) Custom Molded Orthotics See Rx Instructions .Route .MEDSUPPLY Qty: 1 0RF Rx Instructions: As directed [facility] P [employer] (DME) blood-glucose meter [OneTouch Ultra2 Meter] Misc See Rx Instructions .Route Qty: 1 0RF Rx Instructions: use to check blood sugar TID daily lisinopril 2.5 mg tablet See Rx Instructions .ROUTE .COMPLEX Qty: 90 3RF Dose Instruction: TAKE 1 TABLET BY MOUTH DAILY Rx Instructions: TAKE 1 TABLET BY MOUTH DAILY pregabalin 100 mg capsule 100 mg PO TID Qty: 90 3RF cilostazol 50 mg tablet 50 mg PO BID Qty: 180 3RF clopidogrel [Plavix] 75 mg tablet 75 mg PO DAILY Qty: 30 6RF Victoza 3-Justyn 0.6 mg/0.1 mL (18 mg/3 mL) pen injector 1.8 mg SUBCUT .once daily 90 Days Qty: 9 5RF Rx Instructions: please give pen needles with rx metformin 500 mg tablet 500 mg PO BID Qty: 180 1RF Rx Instructions: Take one tablet twice daily aspirin [Adult Low Dose Aspirin] 81 mg tablet,delayed release (DR/EC) 81 mg PO DAILY Qty: 90 3RF (DME) OneTouch Ultra Test Strip See Rx Instructions .ROUTE .COMPLEX Qty: 300 0RF Dose Instruction: USE WITH METER TO TEST BLOOD SUGAR THREE TIMES DAILY Rx Instructions: USE WITH METER TO TEST BLOOD SUGAR THREE TIMES DAILY Discharge Orders: Discharge Order (Routine); Ordered 01/20/23 Ordered By: Lucrecia Martines Referrals: Lucrecia Martines MD [Physician] - 01/26/23 2:15 pm ( Your 6 week post operative appointment will be February 23, 2023 at 9:30 a.m.) Patient Instructions: Hysterectomy (DC), Cystoscopy (DC), OB Discharge Report, OB Food/Drug Interaction Guide, Opioid Safety Discharge Attestations Time Spent in Discharge Care*: less than 30 min Status at Discharge: Cognitive status at discharge: cognitively intact, Behavioral status at discharge: cooperative, Quality Metrics Clinical Quality Measures [ No reported AMI, CVA or VTE this stay] Coding Level of Care Code Acute Code for Chg Fwd Diagnoses Pelvic pain R10.2 Uterine fibroid D25.9 Uterine leiomyoma location: unspecified location
[2023-01-20] MEDS: cilostazol 100 mg Tablet 50 MG PO (09:28)
[2023-01-20] MEDS: lisinopril 2.5 mg Tablet PO (09:28)
[2023-01-20] MEDS: clopidogrel 75 mg Tablet PO (09:29)
[2023-01-20] MEDS: pregabalin 100 mg Capsule PO (09:35)
[2023-01-20 09:45] VITALS: BP 115/66; PULSE 89; RESP 16; TEMP 36.7; O2SAT 90
== END 2023-01-20 10:00 | disposition home or self-care (01) | DRG 743 ==
LOC: OBGYN 12:49
PROVIDERS: Anesthesiology; Admitting Provider Obstetrics & Gynecology; PCP Family Medicine; Visit Provider Obstetrics & Gynecology
PROC: 0UT90ZZ Resection of Uterus, Open Approach (ICD-10-PCS; CPT 58150; principal; 2023-01-18 08:40)
PROC: 0TJB8ZZ Inspection of Bladder, Via Natural or Artificial Opening Endoscopic (ICD-10-PCS; CPT 52000; 2023-01-18 08:40)
DX: D25.9 Leiomyoma of uterus, unspecified (principal); N83.9 Noninflammatory disorder of ovary, fallopian tube and broad ligament, unspecified; Z79.02 Long term (current) use of antithrombotics/antiplatelets; Z79.84 Long term (current) use of oral hypoglycemic drugs; Z79.82 Long term (current) use of aspirin
CPT/HCPCS: 36415; 36416; 51702; 80048; 82962; 85014; 85018; 85025; 85027; 86850; 86900; 87086; 88305; 88307; 93005; 96374; 96376; J0131; J0690; J1100; J1170; J1200; J1885; J2060; J2405; J2704; J3010; J3490; J7030; J7040; J7121; P9045

== ENCOUNTER → 2023-02-02 13:10 | Outpatient (BNVA) | payer MEDICAID, SELFPAY | PROVIDERS: PCP Family Medicine; Visit Provider Podiatrist Foot & Ankle Surgery | DX: I73.9 Peripheral vascular disease, unspecified (principal); E11.8 Type 2 diabetes mellitus with unspecified complications; L60.0 Ingrowing nail; Z79.84 Long term (current) use of oral hypoglycemic drugs; L60.3 Nail dystrophy; M86.9 Osteomyelitis, unspecified | CPT/HCPCS: 73630; 99213 ==

== ENCOUNTER → 2023-02-08 12:35 | Outpatient (BNVA) | payer MEDICAID, SELFPAY | PROVIDERS: PCP Family Medicine; Visit Provider Family Medicine | DX: E11.42 Type 2 diabetes mellitus with diabetic polyneuropathy (principal); F51.04 Psychophysiologic insomnia | CPT/HCPCS: 82043; 83036 ==

== ENCOUNTER → 2023-05-04 13:07 | Outpatient (BNVA) | payer MEDICAID, SELFPAY | PROVIDERS: PCP Family Medicine; Visit Provider Podiatrist Foot & Ankle Surgery | DX: I73.9 Peripheral vascular disease, unspecified; L60.3 Nail dystrophy; M86.672 Other chronic osteomyelitis, left ankle and foot; F17.200 Nicotine dependence, unspecified, uncomplicated; E11.8 Type 2 diabetes mellitus with unspecified complications; L60.0 Ingrowing nail; M21.612 Bunion of left foot; Z79.84 Long term (current) use of oral hypoglycemic drugs | CPT/HCPCS: 73630; 99213 ==

== ENCOUNTER → 2023-06-23 14:24 | Outpatient (BNVA) | payer MEDICAID, SELFPAY | PROVIDERS: PCP Family Medicine; Visit Provider Family Medicine | DX: E11.42 Type 2 diabetes mellitus with diabetic polyneuropathy (principal); R07.89 Other chest pain | CPT/HCPCS: 80053; 83036 ==

== ENCOUNTER → 2023-07-27 13:22 | Outpatient (BNVA) | payer MEDICAID, SELFPAY | PROVIDERS: PCP Family Medicine; Visit Provider Internal Medicine | DX: R07.2 Precordial pain (principal); I73.9 Peripheral vascular disease, unspecified; F17.200 Nicotine dependence, unspecified, uncomplicated; E11.42 Type 2 diabetes mellitus with diabetic polyneuropathy; Z79.84 Long term (current) use of oral hypoglycemic drugs | CPT/HCPCS: 99214 ==

== ENCOUNTER 2023-08-04 10:18 | Outpatient (CLI) | payer MEDICAID, SELFPAY ==
--- NOTE | 2023-08-04 | ECG_ITS ---
[facility] Test Date: 2023-08-04 Pat Name: Mercy Haider Department: Room: Gender: Female Budget Engineer: Shayla Prado : 1965 Requested By: Yady Farmer Order Number: [id number] Fannie MD: Dmitriy Moreland M.D. Interpretive Statements NAME OF STUDY: LEXISCAN SESTAMIBI STRESS TEST INDICATION: Shortness of Breath, CP, PROCEDURE: At the baseline, the EKG revealed normal sinus rhythm with a normal ST Ts.. The baseline heart was 65 bpm with a blood pressue of 145/73 mm of Hg Lexiscan was infused over a period of 20 seconds. A total of 0.4 milligrams of Lexiscan was infused. The stress phase was continued for a total of 5 minutes. Heart rate at the end of the stress phase was 76 bpm with a blood pressure 146/74 mm of Hg. The EKG at the peak infusion revealed no significant changes. Sestamibi was injected 20 seconds after the Lexiscan infusion. Heart rate at the end of the recovery phase was 75 bpm with a blood pressure of 123/56 mm of Hg. CONCLUSION: 1. No significant EKG changes with the LexiScan infusion 2. No LexiScan induced chest pain or cardiac arrhythmia 3. Normal blood pressure and heart rate response 4. Sestamibi/sestamibi perfusion scan pending; see separate report. Electronically Signed On 08-06-2023 13:14:33 WAREHOUSE RECEIVING CLERK by Dmitriy Moreland M.D. [id number]
[2023-08-04 10:49] VITALS: BMI 27.4
--- NOTE | 2023-08-04 10:50 | NMCV_ITS ---
NM benny perf SPECT r/s* [id number] Mercy Haider Age: 58 Gender: F : 1965 Exam Date: 08/04/2023 12:07 Ordering Phys: Yady Farmer DO Technologist: BEVERLEY Lam Exam Location: [facility] Indications: SHORTNESS OF BREATH STRESS TEST Please see separate stress test report in [facility] for full findings IMAGE PROTOCOL Rest/Stress 1 Lexiscan Day Radiopharmaceutical Dose (mCi) Administration Site Administered by Rest: Tc-99m 10.9 IV BEVERLEY Lam Sestamibi Stress:Tc-99m 32.5 IV BEVERLEY Lam Sestamibi Rest: 04-Aug-2023 60 Discovery 630 Stress: 04-Aug-2023 30 Discovery 630 0.4mg Lexiscan. Images obtained in supine and prone position. SPECT RESULTS Technical Quality: Excellent Raw Data Analysis: Normal Image Corrections: No attenuation or motion correction applied Summed Stress Score: 9 Summed Rest Score: 7 Summed Difference Score: 2 PERFUSION FINDINGS There are medium sized partially reversible perfusion defects seen in inferolateral and inferior barrientos. This is consistent with medium sized areas of prior infarct with mira-infarct ischemia in the RCA and left circumflex artery territories. FUNCTIONAL RESULTS (calculated via Gated SPECT) Stress Image LV EF (%): 79 Stress EDV (mL):85 TID: 1.07 Stress ESV (mL):18 FUNCTIONAL FINDINGS: There is normal left ventricular systolic function. IMPRESSIONS 1. 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 2. LV systolic function is normal Randy Izaguirre MD (Electronically Signed) Final Date: 04 August 2023 15:49 S
[2023-08-04] MEDS: regadenoson 0.4 Mg/5 ml Syringe IVP (12:49)
[2023-08-04 13:10] VITALS: BP 123/56; PULSE 77
== END 2023-08-04 10:19 | disposition home or self-care (01) ==
LOC: CDL 10:19
PROVIDERS: PCP Family Medicine; Visit Provider Family Medicine
DX: R06.02 Shortness of breath (principal)
CPT/HCPCS: 36415; 78452; 93017; 96374; A9500; J2785

== ENCOUNTER 2023-08-05 09:02 | Inpatient (IN) | payer MEDICAID, SELFPAY ==
[2023-08-05] VITALS (35 sets, daily range): BP systolic 103–174; BP diastolic 62–96; PULSE 56–98; RESP 12–23; TEMP 36.3–36.8; O2SAT 88–99; BMI 27.4
--- NOTE | 2023-08-05 09:16 | XR_ITS ---
WS: [id number] Portable AP upright chest, 08/05/2023 Clinical Data: chest pain Comparison: None. Findings: No nodules, masses or effusions are seen. The heart is normal. The pulmonary vascularity is not increased. No pneumonia or pneumothorax is seen. There are monitor leads on the chest wall. The patient's clothing obscures minimal detail. Impression: Negative chest.
--- NOTE | 2023-08-05 09:16 | ECG_ITS ---
[facility] Test Date: 2023-08-05 Pat Name: Mercy Haider Department: Room: 104 Gender: Female Cabin Service Agent: : 1965 Requested By: Glenna Watts Order Number: [id number] Fannie MD: Dmitriy Moreland M.D. Measurements Intervals [place] Rate: 63 P: 50 [place]: 195 QRS: -3 QRSD: 104 T: 31 QT: 422 QTc: 433 Interpretive Statements SINUS RHYTHM MINIMAL VOLTAGE CRITERIA FOR LVH, CONSIDER NORMAL VARIANT [MEETS CRITERIA IN ONE OF: R(aVL), S(V1), R(V5), R(V5/V6)+S(V1)] POSSIBLE ANTERIOR MYOCARDIAL INFARCTION , PROBABLY OLD [30 ms Q WAVE IN V3/V4, OR R < 0.2 mV IN V4] Compared to ECG 01/14/2023 11:54:00 No significant changes Electronically Signed On 08-05-2023 20:48:34 TOOL AND PRODUCTION PLANNER by Dmitriy Moreland M.D. [id number] f
--- NOTE | 2023-08-05 09:27 | ED_ITS ---
Documented by User: RUTH Hui 08/05/23 12:01 HPI - Chest Pain General: Chief Complaint: Chest Pain Stated Complaint: SOB/chest pain Time Seen by Provider: 08/05/23 09:15 Source: patient Mode of arrival: ambulatory Limitations: no limitations History of Present Illness: Patient is a 58-year-old female with a history of peripheral arterial disease, former smoking history, HTN, and diabetes here for complaints of chest pain. Patient has been having intermittent chest pains for a few months. She saw her primary care provider who ordered a stress test. She states this was completed yesterday. She was called today to go over those results. Impression was mediu m sized areas of prior infarct with mira-infarct ischemia in the RCA and left circumflex artery territories. She told PCP she was still having chest pain so she was sent here for further evaluation. Patient states chest pains have been intermittent but over the past 2 days or so they have been more frequent. She describes pain in her substernal region with no radiation. She describes it as a heaviness and tightness. Symptoms do seem to be worse with exertion. She has noticed shortness of breath associated with this. She has noticed bilateral lower extremity edema which is a new finding for her. She reports chronic left lower extremity claudication. She has known severe arterial disease in this leg and has been referred to a vascular specialist. complaint: chest pain Onset (ago): day(s) Timing of current episode: episodic Prior episodes: Yes Onset: during rest and during exertion Pain location: substernal Pain radiation: none Severity: moderate Pain scale (0-10): 5 Quality: tightness and heaviness Relieving factors: nothing Exacerbating factors: exertion Context: other (recent + stress test) Associated symptoms: Reports dyspnea; Deny abdominal pain, fever(s), nausea, palpitations, syncope or vomiting Treatment prior to arrival: none Risk Factors: Coronary artery disease risk factors: diabetes, smoking history and hypertension Thoracic aortic dissection risk factors: none Related Data: On Oral Contraceptives: No Review of Systems Const: Denies: fever(s), chills, body aches, fatigue or malaise Card: Reports: chest pain, swelling of feet/ankles, dyspnea on exertion and leg pain with exertion (chronic left LE claudication ); Denies: palpitations, irregular heart rhythm, lightheadedness, syncope, pre- syncope, orthopnea or acrocyanosis Resp: Reports: dyspnea; Denies: productive cough, non-productive cough, wheezing, stridor, pain on inspiration, change in phlegm color, hemoptysis or chest congestion GI: Denies: abdominal pain, nausea, vomiting or diarrhea : Denies: flank pain, dysuria or hematuria Musc: Denies: neck pain, back pain, extremity pain or joint pain Skin/Breast: Denies: rash Neuro: Reports: sensory changes (chronic neuropathy); Denies: headache(s), weakness in extremities or difficulty walking PFS ED PFSH: Medical History (Updated 08/05/23 @ 11:39 by Joseph Pickering MD) Abscess of right groin Bilateral leg pain Claudication of both lower extremities Diabetic ulcer of left heel Enlarged uterus Former smoker Hair loss Hidradenitis suppurativa History of MRSA infection HTN (hypertension) Hyponatremia No pertinent past medical history Onychodystrophy Osteomyelitis of great toe of left foot Pelvic pain Peripheral arterial disease Uterine fibroid Surgical History (Updated 08/05/23 @ 11:41 by Joseph Pickering MD) H/O tubal ligation History of appendectomy History of hysterectomy S/P matrixectomy of toe Family History Mother Diabetes Stroke Hypertension Hyperlipidemia Thyroid disease Brother Diabetes Father Hypertension Hyperlipidemia Denies family history of Ovarian cyst Heart disease Chronic kidney disease (CKD) Cancer Social History (Updated 08/05/23 @ 11:40 by Joseph Pickering MD) Smoking and tobacco/nicotine status: former use of tobacco/nicotine Alcohol intake: current Alcohol intake frequency: holidays/special occasions only Substance/Drug Use: never Physical Exam Const: COMMON NORMALS: no acute distress, patient oriented x3, no limitations, healthy appearing, alert and well nourished GENERAL APPEARANCE: cooperative ORIENTATION/CONSCIOUSNESS: Yes awake, Yes oriented to person, Yes oriented to place and Yes oriented to time HENMT: COMMON NORMALS: normocephalic and atraumatic HEAD & SCALP: normal to inspection, normocephalic and atraumatic Neck/C-Spine: COMMON NORMALS: no JVD and No carotid bruits GENERAL: Yes normal visual inspection Chest: COMMONS NORMALS: normal inspection of the chest and normal palpation of entire chest wall Resp: COMMON NORMALS: normal respiratory effort and clear to auscultation bilaterally AUSCULTATION: clear to auscultation bilaterally Cardio: COMMON NORMALS: no JVD, regular rate and regular rhythm RATE: regular rate RHYTHM: regular rhythm GI: COMMON NORMALS: Normal to inspection, nondistended, normoactive bowel sounds present, Soft to palpation and non-tender PALPATION: Yes Soft to palpation : COMMON NORMALS: Yes no CVA tenderness BLADDER/KIDNEY EXAM: Yes no CVA tenderness Back/Pelvis: COMMON NORMALS: no CVA tenderness Extremity: COMMON NORMALS: full ROM and no calf tenderness NARRATIVE EXTREMITY EXAM: bilateral LE DP/PT pulses located GENERAL: Yes normal exam except as noted and Yes edema Neuro: CHRISTINE COMA SCALE: document GCS findings [place]ock coma scale eye opening: Spontaneous Christine coma scale verbal response: Orientated Christine coma scale motor response: Obey commands Christine coma scale total score: 15 COMMON NORMALS: patient oriented x3, moves all extremities, no focal motor deficits and no sensory deficits noted SENSORIUM/ORIENTATION: Yes alert, Yes oriented to person, Yes oriented to place and Yes oriented to time Skin: COMMON NORMALS: no rashes or lesions noted GENERAL SKIN EXAM: no rashes or lesions noted Course Vital Signs: Vital signs: Vital Signs Temperature 98.2 F 08/05/23 16:00 Pulse Rate 67 08/05/23 17:45 Respiratory Rate 17 08/05/23 17:45 Blood Pressure 131/70 08/05/23 17:45 Pulse Oximetry 94 08/05/23 17:45 Oxygen Delivery Me thod Room Air 08/05/23 16:00 MDM - Chest Pain Medical Decision Making Discussed case with Dr. Santillan who recommended placing patient on a nitro drip and heparin drip. With continued chest pain, significant risk factors, and positive stress test she will need to be admitted and most likely sent for cath. I spoke to Dr. Pickering who will admit patient. Lab Data 08/05/23 09:26 08/05/23 11:04 Laboratory Results WBC 6.76 10^3/uL (3.29-11.43) 08/05/23 09:26 RBC 4.49 10^6/uL (3.85-5.65) 08/05/23 09:26 Hgb 13.50 g/dL (11.27-16.99) 08/05/23 09:26 Hct 43.7 % (36-47) 08/05/23 09: MCV 97.3 fl (85-98) 08/05/23 09:26 MCH 30.1 pg (27-33) 08/05/23 09: MCHC 30.9 g/dL (30-55) 08/05/23 09:26 RDW 14.0 % (12.1-15.1) 08/05/23 09:26 Plt Count 281 10^3/cmm (157-399) 08/05/23 09:26 MPV 10.4 fL (7.4-10.4) 08/05/23 09:26 Neut % (Auto) 44.1 % 08/05/23 09:26 Lymph % (Auto) 34.2 % 08/05/23 09:26 [place] % (Auto) 6.4 % 08/05/23 09:26 Eos % (Auto) 13.0 % 08/05/23 09:26 Baso % (Auto) 1.6 % 08/05/23 09:26 Neut # (Auto) 2.98 10^3/uL (1.8-7.7) 08/05/23 09:26 Lymph # (Auto) 2.3 10^3/uL (0.8-4.8) 08/05/23 09:26 [place] # (Auto) 0.4 10^3/uL (0.2-0.9) 08/05/23 09:26 Eos # (Auto) 0.9 10^3/uL (0.0-0.8) H 08/05/23 09:26 Baso # (Auto) 0.1 10^3/uL (0.0-0.1) 08/05/23 09:26 Nucleated RBC % (auto) 0 % 08/05/23 09: Nucleated RBCs # 0.0 /100WBC 08/05/23 09:26 Sodium Cancelled 08/05/23 09:26 Potassium Cancelled 08/05/23 09:26 Chloride Cancelled 08/05/23 09:26 Carbon Dioxide Cancelled 08/05/23 09:26 Anion Gap Cancelled 08/05/23 09:26 BUN Cancelled 08/05/23 09:26 Creatinine Cancelled 08/05/23 09:26 GFR Calculation Cancelled 08/05/23 09:26 Glucose Cancelled 08/05/23 09:26 Calculated Osmolality Cancelled 08/05/23 09:26 Calcium Cancelled 08/05/23 09:26 Total Bilirubin Cancelled 08/05/23 09:26 AST Cancelled 08/05/23 09:26 ALT Cancelled 08/05/23 09:26 Alkaline Phosphatase Cancelled 08/05/23 09:26 Troponin T Baseline Cancelled 08/05/23 09:26 NT-Pro-B Natriuret Pep Cancelled 08/05/23 09:26 Total Protein Cancelled 08/05/23 09:26 Albumin Cancelled 08/05/23 09:26 Globulin Cancelled 08/05/23 09:26 All radiology interpretation(s) finalized by discharge Discharge Plan Discharge Patient Disposition: Admitted As Inpatient Admit Provider: Joseph Pickering Clinical Impression: Peripheral arterial disease, DM type 2 with diabetic peripheral neuropathy Chest pain Qualifiers: Chest pain type: unspecified Qualified Code(s): R07.9 - Chest pain, unspecified HTN (hypertension) Qualifiers: Hypertension type: unspecified Qualified Code(s): I10 - Essential (primary) hypertension Condition: Stable Discharge Diet: Cardiac Discharge Activity: Limit activity as instructed Coding Level of Care Code ED Social Media Intern for Chg Fwd Documented by User: Ahsan Santillan DO 08/08/23 09:32 HPI - Chest Pain General: Chief Complaint: Chest Pain Stated Complaint: SOB/chest pain Time Seen by Provider: 08/05/23 09:15 PFSH ED PFSH: Medical History (Updated 08/05/23 @ 11:39 by Joseph Pickering MD) Abscess of right groin Bilateral leg pain Claudication of both lower extremities Diabetic ulcer of left heel Enlarged uterus Former smoker Hair loss Hidradenitis suppurativa History of MRSA infection HTN (hypertension) Hyponatremia No pertinent past medical history Onychodystrophy Osteomyelitis of great toe of left foot Pelvic pain Peripheral arterial disease Uterine fibroid Surgical History (Updated 08/05/23 @ 11:41 by Joseph Pickering MD) H/O tubal ligation History of appendectomy History of hysterectomy S/P matrixectomy of toe Family History Mother Diabetes Stroke Hypertension Hyperlipidemia Thyroid disease Brother Diabetes Father Hypertension Hyperlipidemia Denies family history of Ovarian cyst Heart disease Chronic kidney disease (CKD) Cancer Social History (Updated 08/05/23 @ 11:40 by Joseph Pickering MD) Smoking and tobacco/nicotine status: former use of tobacco/nicotine Alcohol intake: current Alcohol intake frequency: holidays/special occasions only Substance/Drug Use: never Physical Exam Neuro: CHRISTINE COMA SCALE: document GCS findings Christine coma scale total score: 15 Course Vital Signs: Vital signs: Vital Signs Temperature 98.2 F 08/05/23 16:00 Pulse Rate 67 08/05/23 17:45 Respiratory Rate 17 08/05/23 17:45 Blood Pressure 131/70 08/05/23 17:45 Pulse Oximetry 94 08/05/23 17:45 Oxygen Delivery Me thod Room Air 08/05/23 16:00 MDM - Chest Pain Medical Decision Making Discussed case with Dr. Santillan who recommended placing patient on a nitro drip and heparin drip. With continued chest pain, significant risk factors, and positive stress test she will need to be admitted and most likely sent for cath. I spoke to Dr. Pickering who will admit patient. Chart reviewed and patient discussed with midlevel. Agree with assessment and plan. Medical Records I reviewed the patient's medical records. Lab Data I reviewed the patient's lab results. 08/05/23 09:26 08/05/23 11:04 Laboratory Results WBC 6.76 10^3/uL (3.29-11.43) 08/05/23 09:26 RBC 4.49 10^6/uL (3.85-5.65) 08/05/23 09:26 Hgb 13.50 g/dL (11.27-16.99) 08/05/23 09:26 Hct 43.7 % (36-47) 08/05/23 09:26 MCV 97.3 fl (85-98) 08/05/23 09:26 MCH 30.1 pg (27-33) 08/05/23 09:26 MCHC 30.9 g/dL (30-55) 08/05/23 09:26 RDW 14.0 % (12.1-15.1) 08/05/23 09:26 Plt Count 281 10^3/cmm (157-399) 08/05/23 09:26 MPV 10.4 fL (7.4-10.4) 08/05/23 09:26 Neut % (Auto) 44.1 % 08/05/23 09:26 Lymph % (Auto) 34.2 % 08/05/23 09:26 [place] % (Auto) 6.4 % 08/05/23 09:26 Eos % (Auto) 13.0 % 08/05/23 09:26 Baso % (Auto) 1.6 % 08/05/23 09:26 Neut # (Auto) 2.98 10^3/uL (1.8-7.7) 08/05/23 09:26 Lymph # (Auto) 2.3 10^3/uL (0.8-4.8) 08/05/23 09:26 [place] # (Auto) 0.4 10^3/uL (0.2-0.9) 08/05/23 09:26 Eos # (Auto) 0.9 10^3/uL (0.0-0.8) H 08/05/23 09:26 Baso # (Auto) 0.1 10^3/uL (0.0-0.1) 08/05/23 09:26 Nucleated RBC % (auto) 0 % 08/05/23 09:26 Nucleated RBCs # 0.0 /100WBC 08/05/23 09:26 Sodium Cancelled 08/05/23 09:26 Potassium Cancelled 08/05/23 09:26 Chloride Cancelled 08/05/23 09:26 Carbon Dioxide Cancelled 08/05/23 09:26 Anion Gap Cancelled 08/05/23 09:26 BUN Cancelled 08/05/23 09:26 Creatinine Cancelled 08/05/23 09:26 GFR Calculation Cancelled 08/05/23 09:26 Glucose Cancelled 08/05/23 09:26 Calculated Osmolality Cancelled 08/05/23 09:26 Calcium Cancelled 08/05/23 09:26 Total Bilirubin Cancelled 08/05/23 09:26 AST Cancelled 08/05/23 09:26 ALT Cancelled 08/05/23 09:26 Alkaline Phosphatase Cancelled 08/05/23 09:26 Troponin T Baseline Cancelled 08/05/23 09:26 NT-Pro-B Natriuret Pep Cancelled 08/05/23 09:26 Total Protein Cancelled 08/05/23 09:26 Albumin Cancelled 08/05/23 09:26 Globulin Cancelled 08/05/23 09:26 Discharge Plan Discharge Patient Disposition: Admitted As Inpatient Admit Provider: Joseph Pickering Clinical Impression: Peripheral arterial disease, DM type 2 with diabetic peripheral neuropathy Chest pain Qualifiers: Chest pain type: unspecified Qualified Code(s): R07.9 - Chest pain, unspecified HTN (hypertension) Qualifiers: Hypertension type: unspecified Qualified Code(s): I10 - Essential (primary) hypertension Condition: Stable Discharge Diet: Cardiac Discharge Activity: Limit activity as instructed Coding Level of Care Code ED Social Media Intern for Jeffrey Weaver
[2023-08-05 09:39] LABS: Basophils # 0.1 10^3/uL (0.0-0.1); Basophils % 1.6 %; Eosinophils # 0.9 10^3/uL (0.0-0.8); Hematocrit 43.7 % (36-47); Lymphocytes # 2.3 10^3/uL (0.8-4.8); Lymphocytes % 34.2 %; Mean Corpuscular HGB Conc 30.9 g/dL (30-55); Mean Corpuscular Hemoglobin 30.1 pg (27-33); Mean Corpuscular Volume 97.3 fl (85-98); Mean Platelet Volume 10.4 fL (7.4-10.4); Monocytes # 0.4 10^3/uL (0.2-0.9); Monocytes % 6.4 %; Neutrophils # 2.98 10^3/uL (1.8-7.7); Neutrophils % 44.1 %; Nucleated Red Blood Cells % 0 %; Platelet Count 281 10^3/cmm (157-399); Red Blood Count 4.49 10^6/uL (3.85-5.65); White Blood Count 6.76 10^3/uL (3.29-11.43)
[2023-08-05] MEDS: heparin drip 25,000 UNIT/500 ML PREMIX 22 UNIT IV (10:01)
[2023-08-05] MEDS: nitroglycerin drip 50 MG/250 ML PREMIX 10 MG IV (10:09)
[2023-08-05 10:21] LABS: Slide Review Slide Review Perform
[2023-08-05] MEDS: heparin 5,000 unit/mL INJ 1 mL IV (10:33)
[2023-08-05 10:45] LABS: Troponin(5th) Baseline 8 ng/L (0-10)
--- NOTE | 2023-08-05 11:07 | P.CONIM_ITS ---
Providers/Reason For Consult Consulting Physician/Specialty*: Dr. Oakley. And emergency department Reason for Consult*: Chest pain abnormal stress test Attending Physician: Joseph Pickering MD Primary Care Provider: Yady Farmer DO History of Present Illness History of Present Illness Mercy Haider is a 58 year old female with history of hypertension hyperlipide lazaro diabetes severe peripheral vascular disease status post left SFA intervention in the past. Patient was a former smoker until a year ago. Patient was recently evaluated by Dr. Izaguirre with stress test for recurrent chest tightness. Stress test results yesterday showed partially reversible medi um size inferior inferior lateral defect consistent with possible combination of previous infarct and mira-infarct ischemia. Patient continued to have chest tightness on and off lasting few minutes came to the emergency room today. She started on nitroglycerin IV heparin still have intermittent chest tightness. Her EKG showed no acute ischemic changes. Initial troponin is 8 Review of Systems Const: Denies: fever(s), chills, body aches, fatigue or malaise Eyes: Denies: change in vision Card: Reports: chest pain, swelling of feet/ankles, dyspnea on exertion and leg pain with exertion (chronic left LE claudication ); Denies: palpitations, irregular heart rhythm, lightheadedness, syncope, pre- syncope, orthopnea or acrocyanosis Resp: Reports: dyspnea; Denies: productive cough, non-productive cough, wheezing, stridor, pain on inspiration, change in phlegm color, hemoptysis or chest congestion GI: Denies: abdominal pain, nausea, vomiting or diarrhea : Denies: flank pain, dysuria or hematuria Musc: Denies: neck pain, back pain, extremity pain or joint pain Skin/Breast: Denies: rash Neuro: Reports: sensory changes (chronic neuropathy); Denies: headache(s), weakness in extremities or difficulty walking Psych: Denies: anxiety or depression Blaise/Lymph: Denies: easy bruising or easy bleeding Medications/Allergies Home Medications Medication Instructions Recorded Confirmed Last Taken Type lancets 30 gauge and blood glucose #200 ea 05/21/21 08/05/23 Unknown Rx strips combo pack Custom Molded Orthotics #1 ea 08/06/21 08/05/23 Unknown Rx blood-glucose meter (OneTouch #1 ea 09/14/21 08/05/23 Unknown Rx Ultra2 Meter) clopidogrel 75 mg tablet (Plavix) 75 mg PO DAILY #30 tabs 06/23/23 08/05/23 08/05/23 Rx sitagliptin phosphate 100 mg 100 mg PO DAILY #90 tabs 06/27/23 08/05/23 08/05/23 Rx tablet (Januvia) GLUCOSE TEST STRIPS #1 ea 07/06/23 08/05/23 Unknown Rx pregabalin 100 mg capsule 100 mg PO TID #90 caps 07/27/23 08/05/23 08/05/23 Rx blood sugar diagnostic (OneTouch #100 strips 08/02/23 08/05/23 Unknown Rx Ultra Test strips) aspirin 81 mg tablet,delayed 81 mg PO QPM 08/05/23 08/05/23 08/04/23 History release (Adult Low Dose Aspirin) cilostazol 50 mg tablet 50 mg PO BID 08/05/23 08/05/23 08/05/23 History lisinopril 2.5 mg tablet 2.5 mg PO DAILY 08/05/23 08/05/23 08/05/23 History metformin 500 mg tablet 500 mg PO BID 08/05/23 08/05/23 2 Days Ago History ~08/03/23 trazodone 100 mg tablet 100 mg PO BEDTIME PRN Sleep 08/05/23 08/05/23 Unknown History Allergies Allergy/AdvReac Type Severity Reaction Status Date / Time No Known Allergies Allergy Verified 07/27/23 13:43 Current Medications Generic Name Dose Route Start Last Admin Trade Name Freq PRN Reason Stop Dose Admin Heparin Sodium (Porcine) 0 unit 08/05/23 09:32 08/05/23 10:33 Heparin 5,000 Unit/Ml Inj 1 Ml IV 1,100 unit PRN PRN Administration Heparin weight-base protocol Protocol Nitroglycerin/Dextrose 50 mg in 250 mls @ 0 mls/hr 08/05/23 09:30 08/05/23 11:00 Nitroglycerin Drip IV 50 mcg/min .Q0M DUONG 15 mls/hr Titration Protocol Per Protocol Heparin Sodium/Sodium Chloride 25,000 unit in 500 mls @ 0 mls/hr 08/05/23 09:45 08/05/23 10:01 Heparin Drip IV 14.27 unit/kg/hr .Q0M DUONG 22 mls/hr Administration Protocol Per Protocol PFS Acute PFSH: Medical History Abscess of right groin Bilateral leg pain Claudication of both lower extremities Diabetic ulcer of left heel Enlarged uterus Former smoker Hair loss Hidradenitis suppurativa History of MRSA infection Hyponatremia No pertinent past medical history Onychodystrophy Osteomyelitis of great toe of left foot Pelvic pain Uterine fibroid Surgical History H/O tubal ligation History of appendectomy S/P matrixectomy of toe Family History Mother Diabetes Stroke Hypertension Hyperlipidemia Thyroid disease Brother Diabetes Father Hypertension Hyperlipidemia Denies family history of Ovarian cyst Heart disease Chronic kidney disease (CKD) Cancer Social History Substance/Drug Use: never Dietary Habits: Current diet type/program: regular Caffeine: Yes Caffeine intake frequency: coffee Vitals/I&O/Wt Last Vital Signs Temp 97.3 F L 08/05/23 09:12 Pulse 59 L 08/05/23 10:14 Resp 18 08/05/23 10:14 BP 174/88 08/05/23 10:14 Pulse Ox 96 08/05/23 10:14 O2 Del Method Room Air 08/05/23 10:14 08/04/23 08/05/23 08/05/23 22:59 06:59 14:59 Intake Total 8.5 / 8.5 Balance 8.5 / 8.5 Weight last 48 hrs Weight 170 lb Physical Exam Const: COMMON NORMALS: no acute distress, patient oriented x3, no limitations, alert and well nourished HENMT: COMMON NORMALS: normocephalic, atraumatic, hearing grossly normal bilaterally and gingiva normal HEAD & SCALP: normocephalic and atraumatic Eye: COMMON NORMALS: Equal, round and reactive pupils present and EOMs intact bilaterally GENERAL EYE: appearance normal, both eyes and all related structures PUPIL: Yes Equal, round and reactive pupils present Neck/C-Spine: COMMON NORMALS: no JVD GENERAL: Yes normal visual inspection CAROTIDS: Yes normal carotid upstroke Chest: COMMONS NORMALS: normal inspection of the chest CHEST: Yes Symmetrical chest wall rise Resp: COMMON NORMALS: normal respiratory effort, No retractions, clear to auscultation bilaterally and percussion normal EFFORT & INSPECTION: Yes symmetric chest movement AUSCULTATION: clear to auscultation bilaterally PERCUSSION: percussion normal Cardio: COMMON NORMALS: no JVD, regular rate, regular rhythm, S1 normal heart sound present, S2 normal heart sound present, No gallops present (Cardio), No clicks present (Cardio), No murmurs present (Cardio) and No rub (Cardio) RATE: regular rate RHYTHM: regular rhythm HEART SOUNDS: S1 normal heart sound present and S2 normal heart sound present GI: COMMON NORMALS: Normal to inspection, nondistended, normoactive bowel sounds present, Soft to palpation and non-tender PALPATION: Yes Soft to palpation : COMMON NORMALS: Yes no CVA tenderness BLADDER/KIDNEY EXAM: Yes no CVA tenderness Back/Pelvis: COMMON NORMALS: no CVA tenderness Extremity: COMMON NORMALS: normal to inspection, full ROM, no joint enlargement, no clubbing, cyanosis or edema, no calf tenderness and no pedal edema (Mild pedal edema bilaterally) Neuro: COMMON NORMALS: patient oriented x3, moves all extremities, no focal motor deficits and no sensory deficits noted SENSORIUM/ORIENTATION: Yes alert GAIT: Yes Normal gait present Psych: COMMON NORMALS: mental status grossly normal APPEARANCE: Yes grossly normal Skin: COMMON NORMALS: no rashes or lesions noted GENERAL SKIN EXAM: no rashes or lesions noted Data 08/05/23 09:26 08/05/23 11:04 A&P Assessment and plan (1) Chest pain: Patient had multiple risk factors for CAD including hypertension diabetes perip heral vascular disease. Recent stress test showed partial reversible ischemia in the inferior inferior lateral wall. Patient still have some residual chest tightness after starting heparin and nitro. We will proceed with cardiac cath. Risk and benefits of the procedure explained in details patient is agreeable to proceed. Qualifiers: Chest pain type: unspecified Qualified Code(s): R07.9 - Chest pain, unspecified (2) HTN (hypertension): Adequately controlled continue current medications Qualifiers: Hypertension type: unspecified Qualified Code(s): I10 - Essential (primary) hypertension (3) Peripheral arterial disease: Severe status post previous intervention. Patient apparently has an appointment to see vascular surgery later. Patient quit smoking about a year ago continue aspirin Plavix and cilostazol. (4) DM type 2 with diabetic peripheral neuropathy: Coding Level of Care Code Acute Code for [facility] Diagnoses Chest pain R07.9 Chest pain type: unspecified HTN (hypertension) I10 Hypertension type: unspecified Peripheral arterial disease I73.9 DM type 2 with diabetic peripheral neuropathy E11.42
--- NOTE | 2023-08-05 11:37 | PM.HP ---
Providers/Chief Complaint Admitting Physician: Joseph Pickering MD Primary Care Provider: Yady Farmer DO Chief Complaint: SOB/chest pain History of Present Illness Mercy Haider is a 58 year old female presenting from home with escalating chest discomfort, pressure, substernal without radiation or other associated features. She states that has been very severe in the last 2 days, but been present for at least 2 months. She denies any exertional component, but also relates she cannot exert herself secondary to the severity of her peripheral vascular disease. She recently underwent a nuclear stress test, on August 04 that was positive for moderate mira-infarct ischemia circumflex/RCA territory. She denies any recent illness with fever, cough. She reports rare bright red blood in her stool she is attributed to hemorrhoids. She has not had a colonoscopy. Review of Systems General: Reports: 10 or more systems reviewed and unremarkable except in HPI and below Card: Reports: chest pain; Denies: palpitations Resp: Denies: dyspnea GI: Reports: hematochezia; Denies: abdominal pain, nausea, vomiting, hematemesis or melena Medications/Allergies Home Medications Medication Instructions Recorded Confirmed Last Taken Type lancets 30 gauge and blood glucose #200 ea 05/21/21 08/05/23 Unknown Rx strips combo pack Custom Molded Orthotics #1 ea 08/06/21 08/05/23 Unknown Rx blood-glucose meter (OneTouch #1 ea 09/14/21 08/05/23 Unknown Rx Ultra2 Meter) clopidogrel 75 mg tablet (Plavix) 75 mg PO DAILY #30 tabs 06/23/23 08/05/23 08/05/23 Rx sitagliptin phosphate 100 mg 100 mg PO DAILY #90 tabs 06/27/23 08/05/23 08/05/23 Rx tablet (Januvia) GLUCOSE TEST STRIPS #1 ea 07/06/23 08/05/23 Unknown Rx pregabalin 100 mg capsule 100 mg PO TID #90 caps 07/27/23 08/05/23 08/05/23 Rx blood sugar diagnostic (OneTouch #100 strips 08/02/23 08/05/23 Unknown Rx Ultra Test strips) aspirin 81 mg tablet,delayed 81 mg PO QPM 08/05/23 08/05/23 08/04/23 History release (Adult Low Dose Aspirin) cilostazol 50 mg tablet 50 mg PO BID 08/05/23 08/05/23 08/05/23 History lisinopril 2.5 mg tablet 2.5 mg PO DAILY 08/05/23 08/05/23 08/05/23 History metformin 500 mg tablet 500 mg PO BID 08/05/23 08/05/23 2 Days Ago History ~08/03/23 trazodone 100 mg tablet 100 mg PO BEDTIME PRN Sleep 08/05/23 08/05/23 Unknown History Allergies Allergy/AdvReac Type Severity Reaction Status Date / Time No Known Allergies Allergy Verified 07/27/23 13:43 PFSH Acute PFSH: Medical History (Updated 08/05/23 @ 11:39 by Joseph Pickering MD) Abscess of right groin Bilateral leg pain Claudication of both lower extremities Diabetic ulcer of left heel Enlarged uterus Former smoker Hair loss Hidradenitis suppurativa History of MRSA infection HTN (hypertension) Hyponatremia No pertinent past medical history Onychodystrophy Osteomyelitis of great toe of left foot Pelvic pain Peripheral arterial disease Uterine fibroid Surgical History (Updated 08/05/23 @ 11:41 by Joseph Pickering MD) H/O tubal ligation History of appendectomy History of hysterectomy S/P matrixectomy of toe Family History Mother Diabetes Stroke Hypertension Hyperlipidemia Thyroid disease Brother Diabetes Father Hypertension Hyperlipidemia Denies family history of Ovarian cyst Heart disease Chronic kidney disease (CKD) Cancer Social History (Updated 08/05/23 @ 11:40 by Joseph Pickering MD) Smoking and tobacco/nicotine status: former use of tobacco/nicotine Alcohol intake: current Alcohol intake frequency: holidays/special occasions only Substance/Drug Use: never Vitals/I&O/Wt Last Vital Signs Temp 97.3 F L 08/05/23 09:12 Pulse 61 08/05/23 11:15 Resp 19 H 08/05/23 11:15 BP 174/88 08/05/23 11:20 Pulse Ox 97 08/05/23 11:15 O2 Del Method Room Air 08/05/23 10:14 08/04/23 08/05/23 08/05/23 22:59 06:59 14:59 Intake Total 8.5 / 8.5 Balance 8.5 / 8.5 Weight last 48 hrs Weight 77.111 kg Physical Exam Narrative: General exam is a white female, no distress, reporting mild chest discomfort since the initiation of a nitroglycerin drip HEENT: Atraumatic and normocephalic. Oropharynx is clear Neck is supple no lymphadenopathy thyromegaly Cardiovascular regular rate and rhythm, no murmur Lungs clear no wheezing or crackles Abdomen is soft with positive bowel sounds. No obvious organomegaly exam is deferred Extremities no cyanosis clubbing or edema, cap refill less than 4 seconds. Pulses somewhat difficult to feel. Skin no rash Neuro no obvious focal deficits Data 08/05/23 09:26 08/05/23 11:04 Other Labs: EKG is reviewed which demonstrates sinus rhythm, left axis deviation, poor R wave progression Chest x-ray reviewed no infiltrate CMP is pending Troponin is 8, repeat pending A&P Assessment and plan (1) Chest pain: Patient presents with chest discomfort. There is concern for unstable angina. She has had a recent abnormal nuclear stress test Cardiology consult Telemetry Serial troponins Check echocardiogram Lipid in the morning Continue Plavix, aspirin Add statin. Discussed risks and benefits with the patient Heparin drip Nitroglycerin drip May be a good candidate for low-dose beta-miryam. Await angiogram Qualifiers: Chest pain type: unspecified Qualified Code(s): R07.9 - Chest pain, unspecified (2) HTN (hypertension): See above, continue many of her home medications Qualifiers: Hypertension type: unspecified Qualified Code(s): I10 - Essential (primary) hypertension (3) Peripheral arterial disease: See above, continue many of her home medications (4) DM type 2 with diabetic peripheral neuropathy: Consistent carb diet when able to eat Hold metformin, Januvia Sliding scale insulin in the hospital Plan Other medical problems as outlined in past medical history Full code currently Heparin will suffice for DVT prophylaxis Attestations Medical Necessity Statement*: Will require greater than 2 midnight stay for evaluation and treatment of unstable angina, with plans for angiogram soon Diagnoses Chest pain R07.9 Chest pain type: unspecified HTN (hypertension) I10 Hypertension type: unspecified Peripheral arterial disease I73.9 DM type 2 with diabetic peripheral neuropathy E11.42 Time Spent (min) 50
--- NOTE | 2023-08-05 11:44 | USCV_ITS ---
Gender: Female : 1965 Any Known Allergies: No known allergies Exam Priority: Routine Ladan MATTSON; Diagnostic Cath Status: Elective Diagnostic Findings * Moderate LAD and left circumflex artery disease. Left dominant. Normal LV function. PCI Status: Elective Interventional Findings * Intravesical ultrasound revealed minimal luminal area of 4.6 to 5.8 mm2 in the mid left succumbs artery indicating no significant flow-limiting disease. iFR also was normal. Recommendations * Continue medical therapy with dual antiplatelet continue risk factor modification and maximize antianginal medication. Interventional RX Recommendation: none Diagnostic RX Recommendation: medical therapy and/or counseling Procedural Details 1. Coronary angiography 2. Left ventricular function study. 3. Left heart cath. 4. Intravascular ultrasound/IFR. 5. Intra-arterial nitroglycerin injection. #6 moderate sedation for about an hour and 5 minutes. Procedure details: Patient was brought to the cardiac [employer] Operator where she was prepped and draped usual sterile fashion. Right radial access was obtained using ultrasound guidance 6 Moroccan sheath was placed. Diagnostic cardiac cath was performed using 5 Moroccan JL 4 and JR4 diagnostic catheters. After reviewing the angiogram the left circumflex artery had about 50% angiographic stenosis. Decision was made to proceed with intravascular sound and IFR to evaluate the lesion since the myocardial fusion scan was mildly abnormal in that territory. Intravascular ultrasound was performed after given heparin BMW wire was utilized to cross the distal left circumflex artery. IVUS catheter was advanced over the wire. IVUS measurements revealed minimal luminal area between 4.6 and 5.8 mm2 indicating no significant disease. iFR also was performed and was 1.03 which is normal. Final angiogram revealed no complications. I, the attending physician, have reviewed and verified all procedure medications. Yes, all medications given per verbal order History/Risk Factors Hypertension: Yes Dyslipidemia: Yes Peripheral Arterial Disease (PAD): Yes Myocardial Infarction (TN): No Obesity: Yes Renal Disease: No Tobacco Use: Former Prior Interventions PCI: No CABG: No Valve Surgery: No Report Signatures Finalized by Carlos Aaron MD on 08/05/2023 02:08 PM
[2023-08-05 11:45] LABS: Alanine Aminotransferase 19 U/L (0-33); Albumin Level 2.6 g/dL (3.5-5.2); Alkaline Phosphatase 87 U/L (35-105); Anion Gap 16.5 (5-19); Aspartate Amino Transferase 19 U/L (0-32); Blood Urea Nitrogen 12 mg/dL (6-20); Calcium 8.7 mg/dL (8.5-10.5); Carbon Dioxide 21 mmol/L (22-29); Chloride 104 mmol/L (98-107); Globulin 3.1 g/dL (1.3-4.6); Glomerular Filtration Rate 230.1 mL/min (90-130); Glucose 156 mg/dL (65-115); NT Pro B Type Natriuretic Pept 36 pg/mL (0-125); Osmolality Calculated 289 mOsm/kg (285-295); Potassium 3.5 mmol/L (3.5-5.1); Sodium 138 mmol/L (136-145); Total Bilirubin 0.2 mg/dL (0.15-1.2); Total Protein 5.7 g/dL (6.6-8.7)
--- NOTE | 2023-08-05 12:03 | XACV_ITS ---
Gender: Female : 1965 Any Known Allergies: No known allergies Exam Priority: Routine Ladan MATTSON; Diagnostic Cath Status: Elective Diagnostic Findings * Moderate LAD and left circumflex artery disease. Left dominant. Normal LV function. PCI Status: Elective Interventional Findings * Intravesical ultrasound revealed minimal luminal area of 4.6 to 5.8 mm2 in the mid left succumbs artery indicating no significant flow-limiting disease. iFR also was normal. Recommendations * Continue medical therapy with dual antiplatelet continue risk factor modification and maximize antianginal medication. Interventional RX Recommendation: none Diagnostic RX Recommendation: medical therapy and/or counseling Procedural Details 1. Coronary angiography 2. Left ventricular function study. 3. Left heart cath. 4. Intravascular ultrasound/IFR. 5. Intra-arterial nitroglycerin injection. #6 moderate sedation for about an hour and 5 minutes. Procedure details: Patient was brought to the cardiac Tow Truck Operator where she was prepped and draped usual sterile fashion. Right radial access was obtained using ultrasound guidance 6 Malian sheath was placed. Diagnostic cardiac cath was performed using 5 Malian JL 4 and JR4 diagnostic catheters. After reviewing the angiogram the left circumflex artery had about 50% angiographic stenosis. Decision was made to proceed with intravascular sound and IFR to evaluate the lesion since the myocardial fusion scan was mildly abnormal in that territory. Intravascular ultrasound was performed after given heparin BMW wire was utilized to cross the distal left circumflex artery. IVUS catheter was advanced over the wire. IVUS measurements revealed minimal luminal area between 4.6 and 5.8 mm2 indicating no significant disease. iFR also was performed and was 1.03 which is normal. Final angiogram revealed no complications. I, the attending physician, have reviewed and verified all procedure medications. Yes, all medications given per verbal order History/Risk Factors Hypertension: Yes Dyslipidemia: Yes Peripheral Arterial Disease (PAD): Yes Myocardial Infarction (VT): No Obesity: Yes Renal Disease: No Tobacco Use: Former Prior Interventions PCI: No CABG: No Valve Surgery: No Report Signatures Finalized by Carlos Aaron MD on 08/05/2023 02:08 PM
[2023-08-05] MEDS: sodium chloride 0.9% 1,000 ML 50 ML IV (12:09)
--- NOTE | 2023-08-05 12:19 | PC.NURSE ---
off unit to director of cath lab for LHC procedure
[2023-08-05 12:48] LABS: Troponin 5 2HR 8.28 ng/L (0-10); Troponin 5 2HR Delta 0.28 ABS# (0-10)
--- NOTE | 2023-08-05 14:18 | PM.OP ---
Operative Report Date of procedure: August 05, 2023 Procedure done: Cardiac cath showed normal LV function with EF about 65 to 70%. Left main is angiographically normal. Left anterior descending artery: Showed mild to moderate disease in the midportion about 40%. Left circumflex office artery showed moderate 50% angiographic disease with intravascular sound and IFR performed and revealed no significant flow limiting disease. Minimal luminal area 4.6 to 5.8 mm?. IFR was normal. Left circumflex artery was large and dominant Right coronary artery was small nondominant was angiographically normal. Surgeon: Carlos Thomas MD
--- NOTE | 2023-08-05 15:01 | ECG_ITS ---
[facility] Test Date: 2023-08-05 Pat Name: Mercy Haider Department: Room: 104 Gender: Female [employer] Operator: : 1965 Requested By: Glenna Watts Order Number: [id number] Fannie MD: Dmitriy Moreland M.D. Measurements Intervals Seth Rate: 65 P: 46 AR: 194 QRS: -13 QRSD: 97 T: 30 QT: 413 QTc: 432 Interpretive Statements SINUS RHYTHM MODERATE VOLTAGE CRITERIA FOR LVH, CONSIDER NORMAL VARIANT [MEETS CRITERIA IN ONE OF: R(aVL), S(V1), R(V5), R(V5/V6)+S(V1)] POSSIBLE ANTERIOR MYOCARDIAL INFARCTION , OF INDETERMINATE AGE [30 ms Q WAVE IN V3/V4, OR R < 0.2 mV IN V4] WARNING: DATA QUALITY MAY AFFECT INTERPRETATION Compared to ECG 08/05/2023 09:09:19 No significant changes Electronically Signed On 08-05-2023 20:56:12 [employer] OPERATOR by Dmitriy Moreland M.D. [email or web address]
[2023-08-05] MEDS: pregabalin 100 mg Capsule PO (15:03)
--- NOTE | 2023-08-05 16:25 | P.DS_ITS ---
Discharge Providers Date of Admission: 08/05/23 10:01 Date of Discharge: August 05, 2023 Attending Provider at Admission: Joseph Pickering MD Attending Provider at Discharge: Joseph Pickering MD Primary Care Provider: Yady Farmer DO Diagnoses at Discharge Discharge Diagnosis (1) Chest pain: Status: Acute Qualifiers: Chest pain type: unspecified Qualified Code(s): R07.9 - Chest pain, unspecified (2) HTN (hypertension): Status: Acute Qualifiers: Hypertension type: unspecified Qualified Code(s): I10 - Essential (primary) hypertension (3) Peripheral arterial disease: Status: Acute (4) DM type 2 with diabetic peripheral neuropathy: Status: Acute Reason for Visit Reason for Visit: SOB/chest pain Hospital Course Hospital Course Patient was admitted for chest pain with concern of unstable angina. She was taken for coronary angiogram which showed moderate 50% disease in LAD and left circumflex. Patient will be discharged home with medical management at this time. Physical Exam Narrative: Wrist examined after TR band removal. No evidence of compromised blood flow in hand. Capillary refill less than 2 seconds. Lungs clear to auscultation Abdomen soft Discharge Data Studies Completed and Pending Completed Studies During Hospitalization Category Date Time Status [employer] request for service Routine Exams 08/05/23 12:03 Completed XR chest 1V portable [id number] Urgent Exams 08/05/23 09:16 Completed Pending at discharge Category Date Time Status Basic Metabolic Panel AM LABS Lab 08/06/23 04:00 Ordered Complete Blood Count w/Auto AM LABS Lab 08/06/23 04:00 Ordered Lipid Panel AM LABS Lab 08/06/23 04:00 Ordered Platelet Count Q2D Lab 08/07/23 04:00 Ordered Platelet Count Q2D Lab 08/09/23 04:00 Ordered Troponin(5th) 6 hour. Stat Lab 08/05/23 16:15 Received Laboratory Results WBC 6.76 10^3/uL (3.29-11.43) 08/05/23 09:26 RBC 4.49 10^6/uL (3.85-5.65) 08/05/23 09:26 Hgb 13.50 g/dL (11.27-16.99) 08/05/23 09:26 Hct 43.7 % (36-47) 08/05/23 09:26 MCV 97.3 fl (85-98) 08/05/23 09: MCH 30.1 pg (27-33) 08/05/23 09: MCHC 30.9 g/dL (30-55) 08/05/23 09: RDW 14.0 % (12.1-15.1) 08/05/23 09: Plt Count 281 10^3/cmm (157-399) 08/05/23 09: MPV 10.4 fL (7.4-10.4) 08/05/23 09: Neut % (Auto) 44.1 % 08/05/23 09: Lymph % (Auto) 34.2 % 08/05/23 09: Calvert % (Auto) 6.4 % 08/05/23 09: Eos % (Auto) 13.0 % 08/05/23 09: Baso % (Auto) 1.6 % 08/05/23 09: Neut # (Auto) 2.98 10^3/uL (1.8-7.7) 08/05/23 09: Lymph # (Auto) 2.3 10^3/uL (0.8-4.8) 08/05/23 09:26 Calvert # (Auto) 0.4 10^3/uL (0.2-0.9) 08/05/23 09: Eos # (Auto) 0.9 10^3/uL (0.0-0.8) H 08/05/23 09: Baso # (Auto) 0.1 10^3/uL (0.0-0.1) 08/05/23 09: Nucleated RBC % (auto) 0 % 08/05/23 09: Nucleated RBCs # 0.0 /100WBC 08/05/23 09:26 Sodium 138 mmol/L (136-145) 08/05/23 11:04 Potassium 3.5 mmol/L (3.5-5.1) 08/05/23 11:04 Chloride 104 mmol/L (98-107) 08/05/23 11:04 Carbon Dioxide 21 mmol/L (22-29) L 08/05/23 11:04 Anion Gap 16.5 (5-19) 08/05/23 11:04 BUN 12 mg/dL (6-20) 08/05/23 11:04 Creatinine 0.3 mg/dL (0.5-0.9) L 08/05/23 11:04 GFR Calculation 230.1 mL/min (90-130) H 08/05/23 11:04 Glucose 156 mg/dL (65-115) H 08/05/23 11:04 Calculated Osmolality 289 mOsm/kg (285-295) 08/05/23 11:04 Calcium 8.7 mg/dL (8.5-10.5) 08/05/23 11:04 Total Bilirubin 0.2 mg/dL (0.15-1.2) 08/05/23 11:04 AST 19 U/L (0-32) 08/05/23 11:04 ALT 19 U/L (0-33) 08/05/23 11:04 Alkaline Phosphatase 87 U/L (35-105) 08/05/23 11:04 Troponin T Baseline 8 ng/L (0-10) 08/05/23 10:08 Troponin T 120 Minute 8.28 ng/L (0-10) 08/05/23 12:12 Delta Troponin T 0.28 ABS# (0-10) 08/05/23 12:12 NT-Pro-B Natriuret Pep 36 pg/mL (0-125) 08/05/23 11:04 Total Protein 5.7 g/dL (6.6-8.7) L 08/05/23 11:04 Albumin 2.6 g/dL (3.5-5.2) L 08/05/23 11:04 Globulin 3.1 g/dL (1.3-4.6) 08/05/23 11:04 Vitals Last Vital Signs Temp 97.8 F 08/05/23 12:00 Pulse 69 08/05/23 13:38 Resp 23 H 08/05/23 13:38 BP 115/78 08/05/23 13:38 Pulse Ox 96 08/05/23 13:38 O2 Del Method Room Air 08/05/23 12:00 Discharge Plan Discharge Patient Disposition: Home Condition: Stable Prescriptions: New atorvastatin 40 mg Tablet 40 mg PO BEDTIME Qty: 30 0RF isosorbide mononitrate 30 mg Tablet Extended Release 24 Hr 30 mg PO DAILY Qty: 30 0RF metoprolol succinate 25 mg Tablet Extended Release 24 Hr 12.5 mg PO DAILY Qty: 30 0RF Continued clopidogrel [Plavix] 75 mg tablet 75 mg PO DAILY Qty: 30 6RF Januvia 100 mg tablet 100 mg PO DAILY Qty: 90 0RF pregabalin 100 mg capsule 100 mg PO TID Qty: 90 3RF cilostazol 50 mg tablet 50 mg PO BID Adult Low Dose Aspirin 81 mg tablet,delayed release (DR/EC) 81 mg PO QPM trazodone 100 mg tablet 100 mg PO BEDTIME PRN (Reason: Sleep) lisinopril 2.5 mg tablet 2.5 mg PO DAILY Held metformin 500 mg tablet 500 mg PO BID Hold Instructions: Resume on 08/08/23. resume in 48 hours No Action (DME) lancets-blood glucose strips 30 gauge combo pack See Rx Instructions .ROUTE .MEDSUPPLY Qty: 200 3RF Rx Instructions: As directed (DME) Custom Molded Orthotics See Rx Instructions .Route .MEDSUPPLY Qty: 1 0RF Rx Instructions: As directed [employer] (DME) blood-glucose meter [OneTouch Ultra2 Meter] [facility] [place] See Rx Instructions .Route Qty: 1 0RF Rx Instructions: use to check blood sugar TID daily (DME) GLUCOSE TEST STRIPS See Rx Instructions .Route .MEDSUPPLY Qty: 1 0RF Rx Instructions: Use with glucometer three times daily to check blood sugar (DME) OneTouch Ultra Test Strip See Rx Instructions .ROUTE .COMPLEX Qty: 100 0RF Dose Instruction: USE with meter TO test blood sugar THREE TIMES DAILY Rx Instructions: USE with meter TO test blood sugar THREE TIMES DAILY Discharge Orders: Discharge Order (Routine); Ordered 08/05/23 Ordered By: Carolyn Knapp Referrals: Randy Izaguirre M.D [Physician] - (Your follow up with Dr. Izaguirre will be scheduled during your Nikki Ferrari appt. Thank you.) Yady Farmer DO [Primary Care Provider] - 08/23/23 2:45 pm Nikki Ferrari FNP [Nurse Practitioner] - 08/12/23 10:30 am Discharge Diet: Cardiac Discharge Activity: Limit activity as instructed Patient Instructions: Metoprolol (By mouth) (Lopressor, Toprol XL), Isosorbide Mononitrate (By mouth) (Imdur, Imdur ER, Ismo), Atorvastatin (By mouth) (Lipitor, Atorvaliq), Cardiac Rehabilitation (DC), Chest Pain Stoplight, Opioid Safety, Post Angiogram Home Care Instructions Discharge Attestations Time Spent in Discharge Care*: less than 30 min Status at Discharge: Cognitive status at discharge: cognitively intact , Behavioral status at discharge: cooperative , Quality Metrics Clinical Quality Measures [ No reported AMI, CVA or VTE this stay] Coding Level of Care Code Acute Code for Chg Fwd Diagnoses Chest pain R07.9 Chest pain type: unspecified HTN (hypertension) I10 Hypertension type: unspecified Peripheral arterial disease I73.9 DM type 2 with diabetic peripheral neuropathy E11.42
[2023-08-05 16:49] LABS: Troponin 5 6HR 8.92 ng/L (0-10); Troponin 5 6HR Delta 0.92 ng/L (0-12)
[2023-08-05 17:09] LABS: Glucose Point of Care 161 mg/dL (70-110)
[2023-08-05] MEDS: insulin lispro 100 unit/1 mL SUBCUT (18:05)
== END 2023-08-05 19:00 | disposition home or self-care (01) | DRG 287 ==
LOC: ER 10:01 → CSU 10:26
PROVIDERS: Specialist; Admitting Provider Internal Medicine; Emergency Provider Physician Assistant; PCP Family Medicine; Visit Provider Internal Medicine
PROC: 4A023N7 Measurement of Cardiac Sampling and Pressure, Left Heart, Percutaneous Approach (ICD-10-PCS; principal; 2023-08-05 12:05)
DX: I25.110 Atherosclerotic heart disease of native coronary artery with unstable angina pectoris (principal); I10 Essential (primary) hypertension; E11.42 Type 2 diabetes mellitus with diabetic polyneuropathy; E11.51 Type 2 diabetes mellitus with diabetic peripheral angiopathy without gangrene; E78.5 Hyperlipidemia, unspecified; Z79.02 Long term (current) use of antithrombotics/antiplatelets; Z79.82 Long term (current) use of aspirin; Z79.84 Long term (current) use of oral hypoglycemic drugs; Z87.891 Personal history of nicotine dependence; Z86.14 Personal history of Methicillin resistant Staphylococcus aureus infection
CPT/HCPCS: 36415; 36416; 71045; 80053; 82962; 83880; 84484; 85025; 92978; 93005; 93306; 93458; 93571; 96365; 96367; 96372; 96375; 99152; 99153; 99291; C1753; C1769; C1887; C1894; J1644; J1815; J2250; J3010; J3490; J7030; Q9967

== ENCOUNTER → 2023-08-09 13:18 | Outpatient (BNVA) | payer MEDICAID, SELFPAY | PROVIDERS: PCP Family Medicine; Visit Provider Podiatrist Foot & Ankle Surgery | DX: I73.9 Peripheral vascular disease, unspecified; F17.200 Nicotine dependence, unspecified, uncomplicated; M21.612 Bunion of left foot; E11.42 Type 2 diabetes mellitus with diabetic polyneuropathy; M86.8X7 Other osteomyelitis, ankle and foot | CPT/HCPCS: 99213 ==

== ENCOUNTER → 2023-08-12 10:24 | Outpatient (BNVA) | payer MEDICAID, SELFPAY | PROVIDERS: PCP Family Medicine; Visit Provider Nurse Practitioner Family | DX: I25.10 Atherosclerotic heart disease of native coronary artery without angina pectoris (principal); Z87.891 Personal history of nicotine dependence; I10 Essential (primary) hypertension | CPT/HCPCS: 99214 ==

== ENCOUNTER 2023-08-26 14:44 | Outpatient (CLI) | payer MEDICAID, SELFPAY ==
--- NOTE | 2023-08-26 14:49 | MM_ITS ---
WS: [id number] BILATERAL 3D TOMOSYNTHESIS DIGITAL SCREENING MAMMOGRAPHY WITH CAD CLINICAL INFORMATION: SCREENING HISTORY: Screening mammogram. No current complaints. COMPARISON: 04/26/2022 TECHNIQUE: Bilateral CC and MLO views. FINDINGS: The breasts are composed of heterogeneous fibroglandular density tissue, which can limit the detectio n of small underlying mass lesions. No suspicious mass, asymmetry, calcifications, or architectural d istortion. No evidence of malignancy. Punctate and lucent centered calcifications. Vascular calcifica tion. IMPRESSION: MM/[place] [id number] BI-RADS: 2-Benign FOLLOW UP: 1 Year Follow-up Recommend return to annual screening mammography.
== END 2023-08-26 14:45 | disposition home or self-care (01) ==
LOC: RAD 14:45
PROVIDERS: PCP Family Medicine; Visit Provider Family Medicine
DX: Z12.31 Encounter for screening mammogram for malignant neoplasm of breast (principal)
CPT/HCPCS: 77063; 77067

== ENCOUNTER → 2023-09-22 15:05 | Outpatient (BNVA) | payer MEDICAID, SELFPAY | PROVIDERS: PCP Family Medicine; Visit Provider Family Medicine | DX: E11.42 Type 2 diabetes mellitus with diabetic polyneuropathy (principal) | CPT/HCPCS: 80048; 83036 ==

== ENCOUNTER → 2023-11-23 13:06 | Outpatient (BNVA) | payer MEDICAID, SELFPAY | PROVIDERS: PCP Family Medicine; Visit Provider Podiatrist Foot & Ankle Surgery | DX: M86.8X7 Other osteomyelitis, ankle and foot (principal); I73.9 Peripheral vascular disease, unspecified; M21.612 Bunion of left foot; E11.42 Type 2 diabetes mellitus with diabetic polyneuropathy; Z79.84 Long term (current) use of oral hypoglycemic drugs; F17.200 Nicotine dependence, unspecified, uncomplicated; M79.671 Pain in right foot; M79.672 Pain in left foot | CPT/HCPCS: 36415; 73630; 80053; 85025; 85651; 86140; 99213 ==

== ENCOUNTER → 2023-12-13 14:45 | Outpatient (BNVA) | payer MEDICAID, SELFPAY | PROVIDERS: PCP Family Medicine; Visit Provider Family Medicine | DX: E11.42 Type 2 diabetes mellitus with diabetic polyneuropathy (principal); I73.9 Peripheral vascular disease, unspecified | CPT/HCPCS: 80061; 83036; 83721 ==

== ENCOUNTER → 2023-12-15 10:42 | Outpatient (BNVA) | payer MEDICAID, SELFPAY | PROVIDERS: PCP Family Medicine; Visit Provider Podiatrist Foot & Ankle Surgery | DX: L60.0 Ingrowing nail (principal); E11.42 Type 2 diabetes mellitus with diabetic polyneuropathy; I73.9 Peripheral vascular disease, unspecified; F17.200 Nicotine dependence, unspecified, uncomplicated; M21.612 Bunion of left foot; M86.8X7 Other osteomyelitis, ankle and foot; Z79.84 Long term (current) use of oral hypoglycemic drugs | CPT/HCPCS: 99213 ==

== ENCOUNTER → 2024-01-25 14:56 | Outpatient (BNVA) | payer MEDICAID, SELFPAY | PROVIDERS: PCP Family Medicine; Visit Provider Internal Medicine | DX: E11.51 Type 2 diabetes mellitus with diabetic peripheral angiopathy without gangrene (principal); E11.42 Type 2 diabetes mellitus with diabetic polyneuropathy; Z79.4 Long term (current) use of insulin; R07.2 Precordial pain; Z87.891 Personal history of nicotine dependence | CPT/HCPCS: 99214 ==

== ENCOUNTER → 2024-03-22 11:18 | Outpatient (BNVA) | payer MEDICAID, SELFPAY | PROVIDERS: PCP Family Medicine; Visit Provider Podiatrist Foot & Ankle Surgery | DX: E11.42 Type 2 diabetes mellitus with diabetic polyneuropathy (principal); L60.3 Nail dystrophy; Z79.4 Long term (current) use of insulin; Z79.84 Long term (current) use of oral hypoglycemic drugs | CPT/HCPCS: 99213 ==

== ENCOUNTER → 2024-07-09 13:00 | Outpatient (BNVA) | payer MEDICAID, SELFPAY | PROVIDERS: PCP Family Medicine; Visit Provider Podiatrist Foot & Ankle Surgery | DX: E11.42 Type 2 diabetes mellitus with diabetic polyneuropathy; M10.072 Idiopathic gout, left ankle and foot; Z79.4 Long term (current) use of insulin; Z79.84 Long term (current) use of oral hypoglycemic drugs | CPT/HCPCS: 73630; 99213 ==

== ENCOUNTER → 2024-07-11 13:45 | Outpatient (BNVA) | payer MEDICAID, SELFPAY | PROVIDERS: PCP Family Medicine; Visit Provider Podiatrist Foot & Ankle Surgery | DX: M10.9 Gout, unspecified (principal); E11.42 Type 2 diabetes mellitus with diabetic polyneuropathy; I10 Essential (primary) hypertension; Z79.4 Long term (current) use of insulin; Z79.84 Long term (current) use of oral hypoglycemic drugs | CPT/HCPCS: 20600; 20605; 80503; J1100; J3490 ==

== ENCOUNTER 2024-07-24 15:54 | Outpatient (CLI) | payer MEDICAID, SELFPAY ==
--- NOTE | 2024-07-24 16:00 | MRR_ITS ---
PROCEDURE INFORMATION: Exam: MR Left Lower Extremity Other Than Joint Without Contrast; Foot Exam date and time: 07/24/2024 4:18 PM Age: 59 years old Clinical indication: Patient HX: Chronic left foot pain; Additional info: E11.42 - type 2 diabetes mellitus with diabetic polyneuro. . . TECHNIQUE: Imaging protocol: Magnetic resonance imaging of the left lower extremity without contrast. Exam focused on the foot. COMPARISON: CT angio abd aorta runof [id number] 04/22/2022 3:14 PM FINDINGS: Bones/joints: Unremarkable. No bone abnormalities. Articular cartilage is normal. No joint effusion. LIGAMENTS: Lisfranc ligament: Unremarkable. No evidence of tear. TENDONS: Flexor tendons of foot: Unremarkable. No evidence of tear. Tibialis posterior tendon: Unremarkable as visualized. Peroneal tendons: Unremarkable as visualized. Extensor tendons of foot: Unremarkable. No evidence of tear. Tibialis anterior tendon: Unremarkable as visualized. Tarsal canal (Sinus tarsi): Unremarkable. Tarsal tunnel: Unremarkable. Soft tissues: Unremarkable. Plantar fascia: Unremarkable as visualized. MR/MR foot LT wo con* [id number] IMPRESSION: Unremarkable MR foot.
== END 2024-07-24 15:55 | disposition home or self-care (01) ==
LOC: RAD 15:54
PROVIDERS: PCP Family Medicine; Visit Provider Podiatrist Foot & Ankle Surgery
DX: E11.42 Type 2 diabetes mellitus with diabetic polyneuropathy (principal); Z87.39 Personal history of other diseases of the musculoskeletal system and connective tissue; M79.675 Pain in left toe(s); M79.89 Other specified soft tissue disorders
CPT/HCPCS: 73718

== ENCOUNTER → 2024-08-01 12:31 | Outpatient (BNVA) | payer MEDICAID, SELFPAY | PROVIDERS: PCP Family Medicine; Visit Provider Podiatrist Foot & Ankle Surgery | DX: E11.42 Type 2 diabetes mellitus with diabetic polyneuropathy (principal); I73.9 Peripheral vascular disease, unspecified; M79.672 Pain in left foot | CPT/HCPCS: 36415; 80053; 85025; 85651; 86140 ==

== ENCOUNTER 2024-08-16 09:45 | Outpatient (CLI) | payer MEDICAID, SELFPAY ==
--- NOTE | 2024-08-16 09:45 | USCV_ITS ---
Mercy Haider Age: 59 Gender: F : 1965 Exam Date: 08/16/2024 10:49 Ordering Phys: Jin Garcia DPM Technologist: Exam Location: [facility] [place]_ Indication: pad RIGHT LEFT Brachial 169.00 mmHg Brachial 167.00 mmHg Pressure (mmHg) Waveform Pressure (mmHg) Waveform 150.00 Above Knee 114.00 129.00 Below Knee 83.00 0.00 CHIP UNLOADER 70.00 124.00 DPA 67.00 0.76 Ankle/Brachial Index 97.00 Pre-Exercise Toe Pressure 67.00 0.57 Pre-Exercise Toe/Brachial Index 0.21 FINDINGS Resting KATHY of 0.73 on the right side and 0.40 on the left side Resting TBI of 0.57 on the right and 0.21 on the left abnormal resting KATHY suggestive of severe peripheral artery disease No Doppler flow signals in the right posterior tibial artery The PVR waveforms showing loss of dicrotic notch on the right side. Loss of dicrotic notch with low amplitude and delayed peaking waveforms on the left side CONCLUSIONS 1. Abnormal resting KATHY and TBI on the left side suggesting severe peripheral artery disease, the abnormal PVR waveforms also suggest severe peripheral artery disease. 2. Abnormal resting KATHY and TBI on the right side, suggestive of moderate peripheral artery disease. 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 Compared to the study from 12/23/2020, there is some improvement in the KATHY on the right side. The occlusion of the posttibial artery appears to be new Dr Dmitriy Moreland MD [facility] (Electronically Signed) Final Date: 16 August 2024 22:37 S
== END 2024-08-16 09:46 | disposition home or self-care (01) ==
LOC: RAD 09:46
PROVIDERS: PCP Nurse Practitioner Family; Visit Provider Podiatrist Foot & Ankle Surgery
DX: I73.9 Peripheral vascular disease, unspecified (principal); E11.42 Type 2 diabetes mellitus with diabetic polyneuropathy
CPT/HCPCS: 93923